=== PATIENT | male | born 1945 | race Caucasian/White ===

== ENCOUNTER 2023-04-29 01:33 | Inpatient (IN) | payer MEDICARE, BC, SELFPAY ==
[2023-04-28 20:15] VITALS: BMI 29.6
[2023-04-28 20:22] VITALS: BP 183/104
[2023-04-28 20:34] LABS: % Basophils 1.1 % (0-2); % Eosinophils 5.1 % (0-6); % Immature Granulocytes 0.2 % (0-0.5); % Lymphocytes 28.5 % (20.5-51.1); % Neutrophils 56.1 % (42.2-75.2); Absolute Basophils 0.1 10^3/uL (0-0.2); Absolute Eosinophils 0.3 10^3/uL (0-0.7); Absolute Lymphocytes 1.8 10^3/uL (1.2-3.4); Absolute Monocytes 0.6 10^3/uL (0.1-0.6); Absolute Neutrophils 3.4 10^3/uL (1.4-6.5); Hematocrit 30.6 % (39.0-52.0); Hemoglobin 10.4 g/dL (13.0-18.0); Mean Corpuscular Hgb 30.5 pg (27.0-31.0); Mean Corpuscular Volume 89.7 fL (80.0-94.0); Mean Platelet Volume 10.1 fL (7.4-10.4); Nucleated Red Blood Cells % 0 % (-); Platelet Count 184 10^3/uL (130-400); Red Blood Cell Count 3.41 10^6/uL (4.70-6.10); Red Cell Dist. Width 13.5 % (11.5-14.5); White Blood Cell Count 6.1 10^3/uL (4.8-10.8)
[2023-04-28 20:58] LABS: ALT (SGPT) 35 U/L (0-50); AST (SGOT) 38 U/L (17-59); Albumin 4.5 g/dl (3.5-5.0); Alkaline Phosphatase 82 U/L (38-126); Blood Urea Nitrogen 24 mg/dl (9-20); Calcium 9.2 mg/dl (8.4-10.2); Carbon Dioxide 23 mmol/L (22-30); Chloride 103 mmol/L (98-107); Glucose 132 mg/dl (70-99); Potassium 4.4 mmol/L (3.5-5.1); Sodium 137 mmol/L (135-145); Total Bilirubin 0.9 mg/dl (0.2-1.3); eGFR > 60.00
[2023-04-28 22:02] VITALS: BP 141/79
--- NOTE | 2023-04-28 22:21 | ED.GENMED ---
History of Present Illness
General
Chief Complaint: Heart Rate Problem
Source: patient and spouse
Time Seen by Provider: 04/28/23 22:02
Nursing documentation reviewed up to this point in time: agreed with
Travel History
Have you had any contact with someone who has COVID-19?: No
Do you have any symptoms of coronavirus? Fever > 100 degrees, chills, cough, shortness of breath, sore throat, loss of taste or smell, muscle aches, or headache?: No
History of Present Illness
History of Present Illness:
Pleasant 77-year-old male who presents with weakness. Patient has a history of paroxysmal atrial fibrillation for which she is followed at [facility]. Patient is on Xarelto 'when he goes into . He started his Xarelto on April 11 and
has been taking it continuously since. Yesterday, at his cardiology office, he was cardioverted. He felt well for a few hours but when he got home, he noted that he was in atrial fibrillation. He does wear an Apple Watch which alerts him. He
states that after speaking with his cardiology group, he is being sent a Holter monitor. Tonight patient does not 'feel himself'. He states that he has been out of breath and winded. Patient has not missed a dose of his Xarelto
Vital signs are stable. Patient not hypoxic
Nursing note reviewed. I agree with nursing documentation up to this point in time.
Home Meds and allergies reviewed.
NUMBER AND COMPLEXITY OF PROBLEMS ADDRESSED AT THE ENCOUNTER
� Chronic conditions affecting care: Atrial fibrillation, hypertension
� Acute Exacerbation and/or Progression of Chronic Illness: Atrial fibrillation
� Differential Diagnosis includes:
AMOUNT AND/OR COMPLEXITY OF DATA TO BE REVIEWED AND ANALYZED
I performed an independent evaluation of the following and my interpretation is:
EKG: Atrial fibrillation rate of 67. Left axis deviation. Right bundle branch block present. When compared with previous EKG dated July 09, 2022, current atrial fibrillation replaces sinus rhythm.
CT:
X-rays:
Ultrasound:
Laboratory Studies: Hemoglobin is 10.4 which is similar to the 10.6 on 07/11/2022. It is up from 9.7 earlier in the day.
Other:
Review of other/old records:
Clinical information was obtained by an independent historian:
Prescriptions/Medications Considered but not given:
Further testing considered but not performed:
RISK OF COMPLICATIONS AND/OR MORBIDITY OR MORTALITY OF PATIENT MANAGEMENT
Social determinants of health affecting care: Good Social Support
Discussion with other providers:
Escalation of care including admission/observation vs risk of discharge considered:
CRITICAL CARE NOTE:
Total Time (exclusive of procedures):
Update:
Past History
Past History
ED Past Medical History: Arrthythmia (atrial fibrillation)
ED Past Surgical History: Cardiac (Cardioversion) and Other (Colonoscopy)
Patient has exhibited threatening behavior?: No
Social History
Tobacco: Former smoker
Alcohol: Daily
Drug: None
Personal:
Review of Systems
Review of Systems
Allergies reviewed?: Yes
Other source history: family
All Other Systems: ROS reviewed and negative except as documented in HPI and ROS
Constitutional: Reports fatigue
EENT: Reports no symptoms
Respiratory: Reports no symptoms
Cardiac: Reports palpitations
ABD/GI: Reports no symptoms
: Reports no symptoms
Musculoskeletal: Reports no symptoms
Skin: Reports no symptoms
Neurological: Reports no symptoms
Endocrine: Reports no symptoms
Hematologic/Lymphatic: Reports no symptoms
Psychiatric: Reports no symptoms
Phy Exam
General Physical Exam
General Presentation: well appearing and no apparent distress
General Skin: warm and dry
General Habitus: normal
General Mental: alert
General Hydration: appears well hydrated
ENT Exam
ENT Exam: EOMI, pharynx normal, neck supple and normocephalic
Eye Exam
Eye Exam: PERRL, cornea clear and conjunctiva normal
Cardiovascular Exam
Cardiovascular Exam: irregularly irregular
Pulmonary Exam
Pulmonary Exam: lungs clear, no respiratory distress, no rales, no crackles, no rhonchi, no stridor, no wheezing and no cough
Gastrointestinal Exam
Gastrointestinal Exam: normal bowel sounds, non tender, soft, no organomegaly, no pulsatile mass and non distended
Neurological Exam
Neurological Exam: alert, oriented x3, no motor deficits and speech normal
Musculoskeletal Exam
Musculoskeletal Exam: full ROM and no edema
Skin Exam
Skin Exam: normal color, warm/dry, no rash and no petechia
Psychiatric Exam
Psychiatric Exam: normal mood/affect
Course
Orders/Labs/Results
Orders:
Orders
04/28/23 20:16
Electrocardiogram (*1) Urgent
Reason for Study: Palpitations
04/28/23 20:17
EKG- Treatment ONCE
04/28/23 20:28
Complete Blood Count/With Diff Urgent
Comprehensive Metabolic Panel Urgent
04/28/23 22:20
0.9% Sodium Chloride 500 ml [Nss] 500 ml IV BOLUS
04/29/23 00:53
Admit/Transfer Patient As Directed
Co-Sign Provider:
Level of Care: Inpatient admission
Assign to:: Telemetry
Physician / Group: Tyrel
Diagnosis: Heart Block, Symptomatic Bradycardia
Reason for Telemetry: Arrhythmia
Date to Stop Telemetry: 05/02/23
Time to Stop Telemetry: 11:00
Reason for Hospitalization: Heart Block, Symptomatic Bradycardia
Expected length of stay greater than two midnights?: Yes
ELOS- Estimated Length of Stay in days: 2
I certify the patient meets the requirements for IP care: Yes
04/29/23 00:54
Code Status As Directed
Resuscitation Status: Full Code
04/29/23 03:06
Acetaminophen [Tylenol] 650 mg PO Q4HPRN PRN
04/29/23 03:06
CARDIOLOGY CONSULT Routine
Consulting Provider: Gaudencio Dimas
Was physician already notified: No
Reason for consult: Bradycardia, Heart Block
Consult Notification Routine
Specialty to Notify: Cardiology
Activity As Directed
Activity Level: Bedrest
Bladder Scan As Directed
Follow Bladder Retention/Intermittent Cath Algorithm?: Yes
PRN if no void in __ hours: 6
Frequency: Per Retention Algorithm
If Bladder Scan Result >: 400
then:: Straight cath
EKG with chest pain [ECG as needed] As Directed
ECG as needed for:: Chest Pain
I/O [Intake/ Output] As Directed
Frequency: Per unit guidelines
Pneumatic Compression Sleeves As Directed
Type: Knee high
Straight Cath As Directed
Frequency: Per Retention Algorithm
Additional Instructions: straight cath as needed per acute urinary retention algorithm for 24 hrs
Additional Instructions: for bladder scan greater than 400 mL
Vital Signs As Directed
Frequency: Per unit guidelines
Oxygen Therapy [O2 Therapy] [RESP] Routine
Titrate/Wean O2 to maintain O2 sat greater than (%): 94
Ot Eval And Treat Routine
PT Consult [Pt Eval And Treat] Routine
Activity Level: Ambulate
With Assistance
DX Deep Vein Thrombosis Video Routine
04/29/23 03:48
Basic Metabolic Panel IN AM
Complete Blood Count/No Diff IN AM
Iron Routine
Magnesium IN AM
TSH Reflex To Free T4 Routine
Total Iron Binding Routine
Troponin I Q6H
04/29/23 06:00
EKG [Electrocardiogram (*1)] IN AM
Reason for Study: Chest Pain
04/29/23 08:00
Losartan [Cozaar] 100 mg PO DAILY
Pantoprazole [Protonix] 40 mg PO BID
04/29/23 09:06
Troponin I Q6H
04/29/23 15:06
Troponin I Q6H
04/30/23 Breakfast
NPO
Allow oral meds: Yes
Allow clear liquids: Sips of Clears
05/02/23 11:00
DC Protocol for Telemetry ONCE
Abnormal Lab Results
04/28/23
20:28
RBC 3.41 L 10^6/uL
(4.70-6.10)
Hgb 10.4 L g/dL
(13.0-18.0)
Hct 30.6 L %
(39.0-52.0)
BUN 24 H mg/dl
(9-20)
Glucose 132 H mg/dl
(70-99)
04/28/23 20:28
04/28/23 20:28
Vital Signs
Initial and Last Documented VS:
Initial Vital Signs
Temp Pulse Resp BP Pulse Ox
98.1 F 79 18 183/104 100
04/28/23 20:22 04/28/23 20:22 04/28/23 20:22 04/28/23 20:22 04/28/23 20:22
Last Documented Vital Signs
Temp Pulse Resp BP Pulse Ox
98.4 F 47 20 148/74 98
04/29/23 03:18 04/29/23 04:30 04/29/23 03:18 04/29/23 03:51 04/29/23 03:18
*Critical Care Note
Total Time (30-74mins, 75-104mins- exclusive of procedures): Not Applicable
Update Note
Update Note:
04/28/2023 2349 PM: Patient felt his heart rate go up into the 140s and then drop back down into the low 50s. Patient and are concerned. Patient to be brought in for further observation. Patient anticoagulated. Blood pressure is thready with
the last reading 112 systolic. Patient has absolutely no chest pain.
ED Attending Note
-
Portions of this chart may have been created with voice recognition software.� Occasional wrong word or��sound alike� substitutions may have occurred due to the inherent limitations of voice recognition software.
Discharge Plan
Departure
Patient Disposition: Admit
Date of Disposition: 04/28/23
Time of Disposition: 23:50
Admit to: Telemetry
Presentation/result/management discussed w/ accepting MD/DO: Hospitalist
Condition: Good
Discharge Problem:
Symptomatic bradycardia, PAF (paroxysmal atrial fibrillation)
Interventions
Interventions:
*Risk Screen - Suicide Last Done: 04/29/23 03:18
*General Assessment Last Done: 04/28/23 20:22
*Neglect/Abuse Screening Last Done: 04/28/23 20:22
ED- Fall Risk Assessment Last Done: 04/28/23 22:48
*ED COVID-19 Vaccine History Last Done: 04/28/23 20:22
*Nursing Disposition Last Done: 04/29/23 02:52
ED- Cardiac Assessment Last Done: 04/28/23 22:48
ED- Pulmonary Assessment Last Done: 04/28/23 22:48
Discharge Date and Time
Discharge Date/Time: 04/29/23 02:53
[2023-04-28] MEDS: NSS 500 IV (22:45)
[2023-04-28 23:00] VITALS: BP 112/60
[2023-04-29] VITALS (17 sets, daily range): BP systolic 116–197; BP diastolic 63–103; PULSE 39–83; O2SAT 97; BMI 28.6
--- NOTE | 2023-04-29 00:59 | HPS.HSE ---
Family Physician
-
Family Physician: Isrrael Rizzo
Chief Complaint
-
Fast / Slow Heart Rate
History of Present Illness
Patient is a 77y M with PMH significant for paroxysmal A-Fib who presents to ED complaining of heart rate issues. Patient states that he has had 5 total cardioversions and a prior ablation for his A-Fib. He is followed at [facility] by Dr. Resendiz
Mary Alice. Patient states that he wears an Apple Watch with heart rate alerts set up. He is very active and jogs several miles a day on average and plays golf regularly. His resting heart rate is low at baseline.
Patient got an alert on 04/11 that his heart rate was in the 30s and he was in A-Fib. He felt somewhat weak and fatigued at that time.
He followed up with Dr. Wheat and underwent a cardioversion on 04/27/23.
He felt well following this until this evening when he felt a 'shock' go through his body. His watch alarmed that his heart rate was in the 120s.
Patient noted a sense of chest heaviness and SOB and he presented to the ED for further evaluation.
At present, he is resting comfortably and feels well. His prior symptoms have fully resolved.
Patient notes that he discussed the possibility of a PPM with Dr. Wheat.
Medical History
Past Medical History
Past Medical History: Reports Other
Additional Past Medical History:
Hypertension
Paroxysmal Atrial Fibrillation
GERD / Mujica's Esophagus
Iron Deficiency Anemia
Past Surgical History: Reports Other
Additional Past Surgical History:
Herniorrhaphy
Bilateral TKA
DCCV x 5
PVI Ablation
Social History
Tobacco: Non-smoker
Alcohol: Occasional (1 drink of bourbon daily - but not when taking blood thinner.)
Drug: None
Personal:
Living: With Family
Family History
Family History: Not pertinent
Allergies / Home Medications
Allergies reflects when Allergies were last updated in [employer].
Home Medications with original date entered in [employer]
Allergy/Medication List:
Allergies
Allergy/AdvReac Type Severity Reaction Status Date / Time
No Known Allergies Allergy Verified 04/28/23 20:24
Home Medications
multivit,Ca,min-iron 8 mg-folic acid 200 mcg-lycopene 600 mcg tablet (Centrum Men) 1 ea PO DAILY Supplement 05/30/21
losartan 50 mg tablet 100 mg PO DAILY Blood pressure 10/22/21
omeprazole 20 mg-sodium bicarbonate 1.1 gram capsule (Zegerid OTC) 1 cap PO BID Gastrointestinal issue 07/09/22
rivaroxaban 20 mg tablet (Xarelto) 20 mg PO QPM Blood clot prevention/tx 30 days #30 tabs 07/11/22
Review of Systems
-
History Source: Patient
A 12 point ROS was completed and negative except as noted: Yes
Constitutional: Reports Fatigue; Denies Fever or Chills
EENT: Denies Sore Throat
Respiratory: Reports Trouble Breathing; Denies Cough
Cardiac: Denies Chest Pain, Diaphoresis, Palpitations or Syncope
Abdomen/GI: Reports Bloody Stools and Black Stools; Denies Abdominal Pain, Nausea, Vomiting or Diarrhea
: Denies Dysuria or Frequency
Musculoskeletal: Denies Edema
Neurological: Denies Dizzy or Headache
Psych: Denies Depression or Anxiety
Physical Exam
Vital Signs
Vital Signs
Temp Pulse Resp BP Pulse Ox
98.1 F 79 18 183/104 100
04/28/23 20:22 04/28/23 20:22 04/28/23 20:22 04/28/23 20:22 04/28/23 20:22
Physical Exam
General: Other (77y M in no acute distress.)
HEENT: Moist mucous membranes and PERRLA
Respiratory: Clear; No Wheezes, Rales or Rhonchi
Cardiac: S1/S2 and Irregular Rhythm; No Murmur
GI: Soft, Non Tender, Non Distended and Normal Bowel Sounds
Musculoskeletal: No Clubbing, No Cyanosis and No Edema
Neuro: AO x 3
Laboratory Results
-
04/28/23 20:28
04/28/23 20:
Laboratory Results
Total Bilirubin 0.9 mg/dl (0.2-1.3) 04/28/23 20:
AST 38 U/L (17-59) 04/28/23 20:
ALT 35 U/L (0-50) 04/28/23 20:
Alkaline Phosphatase 82 U/L (38-126) 04/28/23 20:
Impression/Plan
-
A/P: Patient is a 77y M with PMH significant for paroxysmal atrial fibrillation who presents to ED c/o heart rate issues.
Paroxysmal Atrial Fibrillation
Second Degree AV Block
- Admit for further evaluation and treatment.
- EKG and tele in the ED show a second degree heart block with variable MI interval and occasional dropped beats.
- Not in A-Fib at this time (though question brief run to 140 on the monitor here and likely responsible for the 120 bpm at home).
- Not on AV isabella blockers / chronotropic meds.
- Monitor on tele overnight.
- Cardiology eval in AM for further recommendations.
- Suspect that he would benefit from PPM.
- Hold Xarelto for now for possible PPM / procedure.
- Patient notes that he only takes the Xarelto when he is alerted that he is in A-Fib.
- He started taking it on 04/11 and his plan is to take it for 30 days s/p his DCCV.
Iron Deficiency Anemia
Acute Blood Loss Anemia
GERD / Mujica's Esophagitis
- Patient reports recent blood loss in the stool - both black and red / maroon stools.
- This apparently is the 'norm' for him when on Xarelto.
- He has had multiple GI evaluations in the past with no correctable lesions noted (a small bowel lesion was seen on a capsule study).
- Hold Xarelto acutely as noted above.
- Follow H&H.
- Consider transfusion or iron replacement therapy if needed.
- Continue BID PPI.
Benign Hypertension
- BP elevated in the ED.
- Continue losartan and adjust regimen as needed for adequate BP control.
DVT Prophylaxis: SCDs while Xarelto on hold.
Code Status: Full
[2023-04-29 04:05] LABS: Hematocrit 29.3 % (39.0-52.0); Hemoglobin 9.8 g/dL (13.0-18.0); Mean Corp Hgb Conc. 33.4 g/dL (33.0-37.0); Mean Corpuscular Hgb 30.3 pg (27.0-31.0); Mean Corpuscular Volume 90.7 fL (80.0-94.0); Mean Platelet Volume 10.2 fL (7.4-10.4); Platelet Count 185 10^3/uL (130-400); Red Blood Cell Count 3.23 10^6/uL (4.70-6.10); Red Cell Dist. Width 13.5 % (11.5-14.5); White Blood Cell Count 5.2 10^3/uL (4.8-10.8)
[2023-04-29 04:28] LABS: Blood Urea Nitrogen 21 mg/dl (9-20); Calcium 9.1 mg/dl (8.4-10.2); Carbon Dioxide 24 mmol/L (22-30); Chloride 108 mmol/L (98-107); Estimated Creatinine Clearance 50 ml/min; Glucose 103 mg/dl (70-99); Iron 40 ug/dl (49-181); Potassium 4.9 mmol/L (3.5-5.1); Sodium 141 mmol/L (135-145); eGFR > 60.00
[2023-04-29 04:37] LABS: Percent Saturation 9 % (20-50); Total Iron Binding Capacity 405 ug/dl (261-462)
[2023-04-29 04:49] LABS: Troponin I 0.063 ng/ml
[2023-04-29 04:59] LABS: TSH Reflex To Free T4 6.21 uIU/ml (0.47-4.68)
[2023-04-29 05:29] LABS: Free T4 1.21 ng/dl (0.78-2.19)
--- NOTE | 2023-04-29 07:04 | PTCARENOTE ---
Pt admitted to IVU around 0315. Pt belongings with pt. Pt oriented to IVU and room. Hr A-fib, A-flutter w/ BBB 30s-80s. Pt no c/o cp, worsening SOB, or ligtheadedness/dizziness. Informed to notify RN if any changes, call cook within reach.
[2023-04-29] MEDS: PROTONIX 40 MG PO ×2 (08:18→19:41)
[2023-04-29] MEDS: COZAAR 100 MG PO (08:18)
[2023-04-29] MEDS: FLUSH (NSS) 1 FLUSH IV (08:18)
--- NOTE | 2023-04-29 08:31 | W.PN.HOSP.TC ---
Today's Communication/Plan
-
Await cardiology input
Assessment / Plan
Assessment / Plan
Gen-AAOx3, NAD
HEENT-NC, AT, anicteric, clear oral mm
Neck-supple
CV-reg, no M, +S1/S2
Lungs-clear B/L
Abd-soft, NT, ND
Ext-no edema
Musculoskeletal-no cyanosis, clubbing
Skin-warm and dry
Neuro-grossly non-focal
Psych-calm, cooperative
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 Awaiting cardiology input. Monitor and IVU. Currently NPO. TSH 6.2, free T41.2.
Paroxysmal atrial fibrillation -currently in sinus rhythm. Had second-degree AV block. Last dose of Xarelto was yesterday. He takes it in the mornings. Explained to him that absorption may be better when taken at dinnertime.
Hyperglycemia -glucose 103 this morning. Check hemoglobin A1c, rule out DM2.
Troponin elevation -suspect nonischemic myocardial injury versus demand ischemia from rapid atrial fibrillation. Repeat troponin pending.
Essential hypertension -stable.
GERD/Mujica's esophagus
Chronic normocytic anemia -hemoglobin at or near baseline.
History of GI bleed -reportedly with negative workups in the past.
Full code
Anticipated Discharge: > 48 hours
Subjective/Interval History
-
Date of Service: April 29, 2023
Patient seen and examined. Currently denies any symptoms at rest.
Objective Data
-
Labs:
Laboratory Results
04/28/23 04/29/23
20:28 03:48
WBC 6.1 5.2
Hgb 10.4 L 9.8 L
Hct 30.6 L 29.3 L
Plt Count 184 185
Sodium 137 141
Potassium 4.4 4.9
Chloride 103 108 H
Carbon Dioxide 23 24
BUN 24 H 21 H
Creatinine 1.2 1.2
Glucose 132 H 103 H
Calcium 9.2 9.1
Total Bilirubin 0.9
AST 38
ALT 35
Alkaline Phosphatase 82
Vital Signs:
Vital Signs
Temp Pulse Resp BP Pulse Ox
97.7 F 43 18 159/82 98
04/29/23 07:53 04/29/23 08:15 04/29/23 07:53 04/29/23 07:49 04/29/23 07:53
I&O
04/28/23 04/29/23 04/30/23
06:59 06:59 06:59
Output Total
Balance -1 / -1
Review of Systems
-
History Source: Patient
All other systems: Reviewed and negative
[2023-04-29 09:52] LABS: Troponin I 0.062 ng/ml
--- NOTE | 2023-04-29 10:01 | CM ---
Reviewed chart. Met with Mr. Harrison to review discharge plans. He states prior to admission he resides with his spouse in a three story home with two steps to enter. He states he has a full flight of steps to get to bedroom/full bathroom.
He states he has a powder room on the first floor and a shower in the basement. He states prior to admission he was independent with ambulation and adls. He states he does not have any DME in the home. He states he has a prescription plan with
[employer] . Medical work-up in progress. The discharge plan is to return home with his spouse when medically stable.
--- NOTE | 2023-04-29 10:29 | CON.CAR ---
Addendum entered and electronically signed by Nils Fair MD 04/29/23 12:53:
77 yo male with PMH of paroxysmal A fib, chronic anemia with prior negative GI evaluation admitted with symptomatic bradycardia. He is s/p DCCV by his EP Dr Wheat on 03/29. Since then, he has noticed DESHPANDE and bradycardia on his watch. Exam with
irregular rhythm, II/ systolic murmur at apex, no edema. tele shows atrial flutter, with pauses up to 4 seconds, and frequent HR 30s-40s.
Echo today: EF 60-65%, mild AR, mild , mod MR, mod TR, PASP 60s
Symptomatic bradycardia. Will plan for PPM today.
To resume xarelto post PPM. If Cr Cl remains 50 or below, dose will be 15mg.
Original Note:
Consultation
Consultation Request
Date/Time Consultation Requested: 04/29/23 3a
Date/Time Consultation Performed: 04/29/23 10a
Requesting Provider: Dr. Sarah
Performing Provider: GARRY Harley for Dr. Fair
Reason for Consultation: symptomatic bradycardia
Medical History
-
Chief Complaint: rapid heart rate, sob
History of Present Illness:
Mr. Harrison is a 77 yo male (known to Dr. Nath, mellowing machine operator and Dr. Wheat, EP at [facility]) with paroxysmal Afib, HTN and GERD. He presents to the ER with c/o rapid heart rate noted on his Apple Watch while sitting at home. There was
associated SOB and fatigue that began suddenly. He states having an episode of Afib on 04/11/23 and began taking Xarelto 20mg daily, then had office follow up with Dr. Wheat who scheduled a cardioversion for 04/27/23, restoring NSR. He only takes
Xarelto when he is in Afib because Xarelto causes him to have GI bleeding, he has had prior GI work up (Dr. Smyth) that was unrevealing. QNV3OH4 VASC score is 3 (age, HTN) and he is currently on Xarelto 20mg daily with plan to continue it for 30
days s/p cardioversion 04/27/23. He is admitted to the hospitalist service and we are consulted for symptomatic bradycardia with pauses up to 4 seconds noted on tele. Currently he denies any dizziness or SOB.
Past Medical History
Past Medical History: Other (as above)
Past Surgical History: Cardiac (PVI, DCCV x 5)
Social History
Tobacco: Non-Smoker
Alcohol: Occasional
Personal:
Living: With Family
Employment: Retired
Family History
Family History: Reviewed & Not Pertinent
Allergies / Home Medications
Allergy/AdvReac Type Severity Reaction Status Date / Time
No Known Allergies Allergy Verified 04/28/23 20:24
Medication Instructions Recorded Confirmed Type
multivit,Ca,min-iron 8 mg-folic 1 ea PO DAILY Supplement 05/30/21 04/29/23 History
acid 200 mcg-lycopene 600 mcg
tablet (Centrum Men)
losartan 50 mg tablet 100 mg PO DAILY Blood pressure 10/22/21 04/29/23 History
omeprazole 20 mg-sodium 1 cap PO BID Gastrointestinal issue 07/09/22 04/29/23 History
bicarbonate 1.1 gram capsule
(Zegerid OTC)
rivaroxaban 20 mg tablet (Xarelto) 20 mg PO QPM Blood clot 07/11/22 04/29/23 Rx
prevention/tx 30 days #30 tabs
Review of Systems
-
History Source: Patient
All other systems: Negative unless noted
Physical Exam
Vital Signs
Temp Pulse Resp BP Pulse Ox
97.7 F 43 18 159/82 98
04/29/23 07:53 04/29/23 08:15 04/29/23 07:53 04/29/23 07:49 04/29/23 07:53
Lab Results
04/29/23 03:48
04/29/23 03:48
Troponin I 0.062 ng/ml H* 04/29/23 09:06
Physical Exam
General: Well Developed, Well Nourished and No Apparent Distress
HEENT: Normocephalic, Anicteric and Moist Mucous Membranes
Respiratory: Clear and Non Labored Respirations
Cardiac: S1/S2 and Regular Rhythm (SB with occasional PACs)
Breast: Deferred by me
GI: Soft, Non Tender, Non Distended and Normal Bowel Sounds
Rectal: Deferred by Provider
Musculoskeletal: No Clubbing, No Cyanosis and No Edema
Skin: Warm and Dry
Neuro: AO x 3
Psych: Calm
Impression / Plan
-
Bradycardia - symptomatic.
- up to 4 second pauses on tele.
- tachy-joaquim syndrome given elevated HR at home last night 120s.
- plan for pacemaker today, he is agreeable.
- NPO and check echo.
Afib - paroxysmal.
- SB with pauses and atrial flutter 4:1 noted as well.
- on Xarelto 20mg daily, but should be 15mg daily due to CrCl 50.
- Xarelto on hold, took it last yesterday morning.
- when resume Xarelto, will have to monitor CrCl for proper dosing.
- s/p DCCV 04/27/23 with plan to continue Xarelto for 30 days post DCCV.
- s/p PVI, follows with Dr. Wheat at [facility].
- not on AV isabella blocking meds.
- TSH 6.21, per hospitalist.
Acute non myocardial injury - due to tachy-joaquim syndrome.
- symptomatic bradycardia with pauses.
- troponin trend 0.063, 0.062.
- he denies any chest pain.
- check echo today.
HTN - stable on Losartan, continue.
GERD - stabl yolanda Zegerid at home.
History of GI bleeding - while on Xarelto he notes blood in his stool.
- prior GI work up was unrevealing (Dr. Smyth).
Data Reviewed
-
EKG: Tracing Personally Visualized and interpreted (04/28/23 SR with PACs, blocked PACs, RBBB, possible AV isabella echo beats)
Medical Tests (Nuc Med, Echo etc): Other (echo ordered for today)
Labs: Labs Reviewed by me
[2023-04-29 11:19] LABS: Glycohemoglobin (HgbA1c) 5.7 % (4.0-5.6)
--- NOTE | 2023-04-29 13:14 | PTOTSP ---
PATIENT ABLE TO MOBILIZE INDEPENDENTLY ON LEVEL SURFACES WELL ELEVATIONS WITH MINIMAL COMPLAINTS OF LE TINGLING AND SHORTNESS OF BREATH. HEART RATE NOTED TO BE 39 IN [place] AND 83 POST MOBILITY. RN AWARE. PATIENT TO HAVE PACEMAKER TODAY. O.T.
REVIEWED PACEMAKER PRECAUTIONS WITH PATIENT AND . WILL DISCHARGE FROM P.T. SERVICES.
--- NOTE | 2023-04-29 13:26 | PTCARENOTE ---
The patient has complained of tingling in his hands, feet, and at times 'all over'. He stated that he has been feeling this for over a month, prior to his CV on 04/27/23. Aflutter is noted on the monitor. His HR will go as low as the 30s at rest and
then jump up to the 80s with ambulation or activity. He has been asymptomatic except for an occasional DESHPANDE.
--- NOTE | 2023-04-29 17:37 | PTCARENOTE ---
Received the patient from the circus laborer in his bed. The patient is aaox3, vss, 94% on RA. A-V paced on the monitor. Left chest wall dressing is C/D/I. His left arm immobilizer is in place. I instructed the patient on activity restrictions and
expected oob time. His call cook is within reach.
--- NOTE | 2023-04-29 17:48 | ITS.CL.PACE ---
Counseling Specialist - Pacemaker Implant
Pacemaker Implant
Procedure Report:
Date of Procedure: April 29, 2023.
Procedure: Pacemaker Implantation.
Indication: The pacemaker is for the treatment of nonreversible symptomatic bradycardia due to second degree atrioventricular block. Known paroxysmal atrial fibrillation and atrial flutter.
Performing physician: Andre Barron MD, LOCATED WITHIN [facility].
Implants:
Pulse Generator: Medtronic; Model# [id number]; Serial# [id number].
RA Lead: Medtronic; Model# 5076-52cm; Serial# [id number].
RV Lead: Medtronic; Model# 3830-69cm; Serial# [id number].
Technique: A time out was performed. The procedure site was identified. The patient spontaneously converted to sinus during the procedure and AV block was seen when pacing at about 70 bpm. The patient was anesthetized by the anesthesia service.
Preoperative cefazolin was administered. The patient was prepped and draped in the usual fashion. Local anesthetic was applied to the left prepectoral subcutaneous tissue. A 3 inch incision was made along the left deltopectoral groove. Dissection
was carried to the fascia. The left cephalic vein was easily isolated and proximal and distal control with 2-0 Vicryl suture. Using a micropuncture needle to access the cephalic vein under direct visualization a wire was advanced into the central
circulation. A 7 Fr introducer was placed to allow two 0.35 J wires to be advanced. The leads were introduced with hemostatic peel away introducer sheaths. The RV lead was placed using utilizing the [employer] His delivery catheter ([id number]) that
was advanced to the left bundle area as confirmed by fluoroscopy in the ROMANSH and GUTIERREZ projections. The lead tip was advanced. PVC morphology was reviewed. When a satisfactory location was identified the lead was screwed into position with serial
turns. After each series of turns unipolar sensed morphology and paced impedance morphology of V1 was analyzed. The lead was further advanced until satisfactory morphology and electrical characteristics were confirmed. The second tested location
proved successful. The long guiding sheath was cut and removed from the RV without change in lead position, impedance, sensing, or capture. The ventricular lead was secured to the pectoralis muscle and fascia with two 0-silk sutures. The atrial
lead was then placed in the right atrial appendage but proved unstable so a more lateral location was chosen. 8 volt pacing did not capture the diaphragm. The atrial lead was secured to the pectoralis muscle and fascia with two 0-silk sutures. A
subcutaneous pocket was created with Bovie cautery. Hemostasis was excellent.The leads were appropriately attached to the device. The pocket was irrigated with antibiotic solution. The device and leads were placed in the pocket. The incision was
closed in three layers with absorbable suture. Steri-strips and an Aquacel dressing were placed. Estimated blood loss was 5 ml. There were no complications. Fluoroscopy time: 2.1 minutes and DAP 1.04 GyCM2. The device was then interrogated after
skin closure.
Lead Analysis:
RA lead: P: 1.1 mV; Threshold: 1 V @ 0.4 ms; Impedance:361 ohms.
RV lead: R: 13.1 mV; Threshold: 0.75 V @ 0.4 ms; Impedance: 532 ohms.
Paced QRS characteristics: V1 has QR morphology and measures 100 ms in duration, LVAT (LV activation time) stim to peak V5 is 81 ms, and peak V1 to peak V5/6 is 39 ms.
Final Programming: DDDR 60-130 bpm.
Conclusion: Uncomplicated Medtronic pacemaker implant. The pacing system is MRI conditional. The RV lead captures the LBBB to provide successful LBB area pacing/conduction system pacing.
Recommendation: Routine post pacemaker care.
cc: Alejandro Fiar MD.
[2023-04-29] MEDS: TYLENOL 650 MG PO (19:41)
[2023-04-29] MEDS: FLUSH (NSS) 2 FLUSH IV (22:41)
[2023-04-29] MEDS: ANCEF 5 IV (22:41)
--- NOTE | 2023-04-30 00:27 | PTCARENOTE ---
Late note:Took Tylenol earlier in the shift for discomfort at pacer site with relief. V-paced on the monitor. Voiding without difficulty. Sleeping at present.
[2023-04-30 05:14] VITALS: BP 153/91
[2023-04-30 05:41] LABS: Hematocrit 27.9 % (39.0-52.0); Hemoglobin 9.6 g/dL (13.0-18.0); Mean Corp Hgb Conc. 34.4 g/dL (33.0-37.0); Mean Corpuscular Hgb 30.5 pg (27.0-31.0); Mean Corpuscular Volume 88.6 fL (80.0-94.0); Mean Platelet Volume 10.1 fL (7.4-10.4); Platelet Count 171 10^3/uL (130-400); Red Blood Cell Count 3.15 10^6/uL (4.70-6.10); Red Cell Dist. Width 13.6 % (11.5-14.5); White Blood Cell Count 5.8 10^3/uL (4.8-10.8)
[2023-04-30] MEDS: ANCEF 5 IV (06:08)
[2023-04-30] MEDS: FLUSH (NSS) 2 FLUSH IV (06:08)
[2023-04-30 06:13] LABS: Blood Urea Nitrogen 23 mg/dl (9-20); Calcium 8.8 mg/dl (8.4-10.2); Carbon Dioxide 23 mmol/L (22-30); Chloride 108 mmol/L (98-107); Estimated Creatinine Clearance 60 ml/min; Glucose 96 mg/dl (70-99); Sodium 140 mmol/L (135-145); eGFR > 60.00
[2023-04-30 06:19] LABS: Potassium 4.4 mmol/L (3.5-5.1)
[2023-04-30] MEDS: TYLENOL 650 MG PO (07:03)
[2023-04-30 07:07] VITALS: BP 188/105
[2023-04-30 07:09] VITALS: BP 185/92
[2023-04-30] MEDS: PROTONIX 40 MG PO (07:41)
[2023-04-30] MEDS: COZAAR 100 MG PO (07:41)
--- NOTE | 2023-04-30 08:19 | W.PN.HOSP.TC ---
Today's Communication/Plan
-
Discharge
Assessment / Plan
Assessment / Plan
Gen-AAOx3, NAD
HEENT-NC, AT, anicteric, clear oral mm
Neck-supple
CV-reg, no M, +S1/S2, left chest dressing intact
Lungs-clear B/L
Abd-soft, NT, ND
Ext-no edema
Musculoskeletal-no cyanosis, clubbing
Skin-warm and dry
Neuro-grossly non-focal
Psych-calm, cooperative
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 Outpatient follow-up with cardiology. Pacemaker precautions. Discussed with cardiology Dr. Limon.
Paroxysmal atrial fibrillation -currently in sinus rhythm. Had second-degree AV block. Cardiology recommends changing to Eliquis 5 mg twice daily on discharge, first dose tonight.
Hyperglycemia -glucose 96 this morning. Hemoglobin A1c 5.7% just meeting the cutoff for type 2 diabetes. Recommend diet and exercise. At this point would not start on diabetes medications given his age.
Troponin elevation -suspect nonischemic myocardial injury due to rapid atrial fibrillation. Troponin trending down.
Essential hypertension -stable.
GERD/Mujica's esophagus
Chronic normocytic anemia -hemoglobin at or near baseline.
History of GI bleed -reportedly with negative workups in the past.
Full code
Dispo -medically stable for discharge today. Outpatient follow-up.
35 minutes spent in discharge process.
Anticipated Discharge: Today
Subjective/Interval History
-
Date of Service: April 30, 2023
Patient seen and examined. Eating breakfast. No complaints. Eager to go home.
Objective Data
-
Labs:
Laboratory Results
04/30/23
05:23
WBC 5.8
Hgb 9.6 L
Hct 27.9 L
Plt Count 171
Sodium 140
Potassium 4.4
Chloride 108 H
Carbon Dioxide 23
BUN 23 H
Creatinine 1.0
Glucose 96
Calcium 8.8
Vital Signs:
Vital Signs
Temp Pulse Resp BP Pulse Ox
97.8 F 65 18 153/91 97
04/30/23 07:11 04/30/23 06:00 04/30/23 07:11 04/30/23 05:14 04/30/23 07:11
I&O
04/29/23 04/30/23 05/01/23
06:59 06:59 07:59
Output Total 1 / 1 500 / 500
Balance -1 / -1 -500 / -500
Review of Systems
-
History Source: Patient
All other systems: Reviewed and negative
--- NOTE | 2023-04-30 08:26 | W.DS.TRANS ---
DC Summary - Glass Technician
-
Discharge Instructions:
Discharge Diagnosis/Procedures Pacemaker implant, type 2 diabetes mellitus
Diet Low Sodium,Diabetic, Carb Controlled
Activity As tolerated
Driving Restrictions No driving for 1 week
Bathing Restrictions OK to Shower
Instructions:
Stand-Alone Forms: DC Inst - Implanted Device
Changes to Home Medications: Yes
Discharge Medications:
DC Medications w/original date entered in [employer]
multivit,Ca,min-iron 8 mg-folic acid 200 mcg-lycopene 600 mcg tablet (Centrum Men) 1 ea PO DAILY Supplement 05/30/21
losartan 50 mg tablet 100 mg PO DAILY Blood pressure 10/22/21
omeprazole 20 mg-sodium bicarbonate 1.1 gram capsule (Zegerid OTC) 1 cap PO BID Gastrointestinal issue 07/09/22
apixaban 5 mg tablet (Eliquis) 5 mg PO BID #60 tabs 04/30/23
Home Medication Changes
Stop Xarelto
Start Eliquis
Pending Results: No
[2023-04-30 09:37] VITALS: BP 165/78
--- NOTE | 2023-04-30 10:50 | PTCARENOTE ---
Pt ambulating independently in the room. Denies any left chest incisional pain or discomfort. Left chest incision site clean and dry with aqucell dressing intact. Pt discharged to home with his . Discharge instructions given and reviewed with
good understanding.
--- NOTE | 2023-04-30 12:39 | W.PN.CD ---
Today's Communication / Plan
-
- Switch Xarelto to Eliquis 5 mg BID
- Stable for discharge.
Impression / Plan
-
Bradycardia - symptomatic.
- up to 4 second pauses on tele.
- tachy-joaquim syndrome given elevated HR at home last night 120s.
- s/p PPM on 04/29/23
Afib - paroxysmal.
- SB with pauses and atrial flutter 4:1 noted as well.
- on Xarelto 20mg daily, but should be 15mg daily due to CrCl 50.
- With h/o GI bleeding, as discussed with Dr. Barron, will switch to Eliquis 5 mg BID for discharge
- Discussed options including redoAF ablation vs watchman for his recurrent GI bleeding and interrupted anticoagulation
- s/p DCCV 04/27/23 with plan to continue Eliquis now.
- s/p PVI, follows with Dr. Wheat at [facility].
- not on AV isabella blocking meds.
- TSH 6.21, per hospitalist.
Acute non myocardial injury - due to tachy-joaquim syndrome.
- symptomatic bradycardia with pauses.
- troponin trend 0.063, 0.062.
- he denies any chest pain.
- ECHO 04/28/33 - LVEF 60-65%, moderate MR.
HTN - stable on Losartan, continue.
GERD - stable on Zegerid at home.
History of GI bleeding - while on Xarelto he notes blood in his stool.
- prior GI work up was unrevealing (Dr. Smyth).
Physical Exam
Vital Signs/Labs
Vital Signs
Temp Pulse Resp BP Pulse Ox
97.8 F 69 18 165/78 98
04/30/23 07:11 04/30/23 10:00 04/30/23 07:11 04/30/23 09:37 03/09/24 08:00
04/29/23 04/30/23 05/01/23
06:59 06:59 07:59
Actual Weight 87.8 kg
04/30/23 05:23
04/30/23 05:23
Magnesium 2.0 mg/dl (1.6-2.3) 04/30/23 05:23
Free T4 1.21 ng/dl (0.78-2.19) 04/29/23 03:48
LAB Results
04/29/23 04/29/23 04/29/23
03:48 09:06 15:06
Troponin I 0.063 H* 0.062 H* Cancelled
Physical Exam
Constitutional: No acute distress and Comfortable
EENT: Anicteric and Moist mucous membranes
Cardiovascular: Rhythm & rate is regular, Pedal edema is absent and JVD pressure is normal
Respiratory: Respiratory effort normal, Lungs clear to auscul., Wheeze Absent and Crackles Absent
GI: Soft, Distention absent, Non tender and Normal bowel sounds
Neuro/Psych: Alert, Oriented and AO x 3
Other: Cardiac Device Site (pressure dressing removed. )
Data Reviewed
-
Date of Service: April 30, 2023
Medical Decision Making: Reviewed Test Results, Independent Historian Assessment, Test Interpretation and Review of Case with other Provider
EKG: Tracing Personally Visualized and interpreted
Echo: Report Reviewed by me
X-Ray/CT/US/MRI/NUC/PET: Image Personally Visualized and interpreted
Labs: Labs Reviewed by me
Old Records: Reviewed
== END 2023-04-30 11:00 | disposition home or self-care (01) | DRG 243 ==
LOC: IVU 01:33
PROVIDERS: Internal Medicine Cardiovascular Disease; Nurse Practitioner Adult Health; Student in an Organized Health Care Education/Training Program; ADMITTING PHYSICIAN Hospitalist; ATTENDING PHYSICIAN Hospitalist; EMERGENCY PHYSICIAN Student in an Organized Health Care Education/Training Program; FAMILY PHYSICIAN Family Medicine; REFERRING PHYSICIAN Internal Medicine
PROC: 02HK3JZ Insertion of Pacemaker Lead into Right Ventricle, Percutaneous Approach (ICD-10-PCS; 2023-04-29)
PROC: 0JH606Z Insertion of Pacemaker, Dual Chamber into Chest Subcutaneous Tissue and Fascia, Open Approach (ICD-10-PCS; 2023-04-29)
PROC: 02H63JZ Insertion of Pacemaker Lead into Right Atrium, Percutaneous Approach (ICD-10-PCS; 2023-04-29)
DX: I49.5 Sick sinus syndrome (principal); I5A Non-ischemic myocardial injury (non-traumatic); K92.1 Melena; R53.1 Weakness; I48.0 Paroxysmal atrial fibrillation; I50.9 Heart failure, unspecified; I11.0 Hypertensive heart disease with heart failure; D64.9 Anemia, unspecified; K21.9 Gastro-esophageal reflux disease without esophagitis; E11.65 Type 2 diabetes mellitus with hyperglycemia; K22.70 Barrett's esophagus without dysplasia; D50.9 Iron deficiency anemia, unspecified; Z96.653 Presence of artificial knee joint, bilateral; I44.1 Atrioventricular block, second degree; Z87.891 Personal history of nicotine dependence; Z79.01 Long term (current) use of anticoagulants
CPT/HCPCS: 33208; 71045; 80048; 80053; 83036; 83540; 83550; 83735; 84439; 84443; 84484; 85025; 85027; 93005; 93306; 97162; 97166; 99285; C1769; C1785; C1892; C1898

== ENCOUNTER 2023-05-02 22:11 | Observation (INO) | payer MEDICARE, BC, SELFPAY ==
[2023-05-02] VITALS (17 sets, daily range): BP systolic 78–182; BP diastolic 37–99; BMI 28.1
[2023-05-02 16:12] LABS: % Basophils 0.8 % (0-2); % Eosinophils 2.9 % (0-6); % Immature Granulocytes 0.2 % (0-0.5); % Lymphocytes 19.4 % (20.5-51.1); % Monocytes 8.3 % (1.7-9.3); % Neutrophils 68.4 % (42.2-75.2); Absolute Basophils 0.1 10^3/uL (0-0.2); Absolute Eosinophils 0.2 10^3/uL (0-0.7); Absolute Lymphocytes 1.2 10^3/uL (1.2-3.4); Absolute Monocytes 0.5 10^3/uL (0.1-0.6); Absolute Neutrophils 4.1 10^3/uL (1.4-6.5); Hematocrit 31.1 % (39.0-52.0); Hemoglobin 10.8 g/dL (13.0-18.0); Mean Corp Hgb Conc. 34.7 g/dL (33.0-37.0); Mean Corpuscular Hgb 29.8 pg (27.0-31.0); Mean Corpuscular Volume 85.9 fL (80.0-94.0); Mean Platelet Volume 9.7 fL (7.4-10.4); Nucleated Red Blood Cells % 0 % (-); Platelet Count 201 10^3/uL (130-400); Red Blood Cell Count 3.62 10^6/uL (4.70-6.10); Red Cell Dist. Width 13.6 % (11.5-14.5); White Blood Cell Count 5.9 10^3/uL (4.8-10.8)
[2023-05-02 16:30] LABS: ALT (SGPT) 21 U/L (0-50); AST (SGOT) 31 U/L (17-59); Albumin 4.6 g/dl (3.5-5.0); Alkaline Phosphatase 82 U/L (38-126); Blood Urea Nitrogen 20 mg/dl (9-20); Calcium 9.7 mg/dl (8.4-10.2); Carbon Dioxide 25 mmol/L (22-30); Chloride 103 mmol/L (98-107); Glucose 108 mg/dl (70-99); Potassium 4.4 mmol/L (3.5-5.1); Sodium 139 mmol/L (135-145); Total Bilirubin 0.8 mg/dl (0.2-1.3); eGFR > 60.00
[2023-05-02 16:45] LABS: Troponin I 0.045 ng/ml
--- NOTE | 2023-05-02 18:39 | ED.GENMED ---
History of Present Illness
<GARRY Carmichael - Last Filed: 05/03/23 00:22>
General
Chief Complaint: Chest Pain
Exam Limitations: none
Time Seen by Provider: 05/02/23 18:39
Nursing documentation reviewed up to this point in time: agreed with
Travel History
Have you had any contact with someone who has COVID-19?: No
Do you have any symptoms of coronavirus? Fever > 100 degrees, chills, cough, shortness of breath, sore throat, loss of taste or smell, muscle aches, or headache?: No
History of Present Illness
History of Present Illness:
Patient is a 77-year-old male who has history of nonischemic myocardial injury due to rapid atrial fibrillation, type 2 diabetes, tachybradycardia syndrome paroxysmal A-fib and permanent pacemaker which was placed April 28 3 days ago. Patient at
that time was switched from Xarelto to Eliquis.
Patient reports he got up this morning around 80 and had very mild discomfort across his chest however that that has been persistent since and is got increasingly worse. He reports he did have a meal with a lot of garlic and and was not sure if this
added to s/s. Denies any recent illness fever chills cough.
He reports he went to the bathroom while he was here and just walking made his pain worse he also does feel slightly worse when he takes a deep breath.
He does feel like people someone is standing on his chest and has some pain in his teeth.
Past History
<GARRY Carmichael - Last Filed: 05/03/23 00:22>
Past History
ED Past Medical History: Arrthythmia (atrial fibrillation)
ED Past Surgical History: Cardiac (Cardioversion) and Other (Colonoscopy)
Patient has exhibited threatening behavior?: No
Social History
Tobacco: Former smoker
Alcohol: Daily
Drug: None
Personal:
Review of Systems
<GARRY Carmichael - Last Filed: 05/03/23 00:22>
Review of Systems
Allergies reviewed?: Yes
All Other Systems: ROS reviewed and negative except as documented in HPI and ROS
Constitutional: Reports no symptoms; Denies fever, fatigue or chills
EENT: Reports no symptoms
Respiratory: Reports no symptoms; Denies trouble breathing
Cardiac: Reports chest pain
ABD/GI: Reports no symptoms
: Reports no symptoms
Musculoskeletal: Reports no symptoms
Skin: Reports no symptoms
Neurological: Reports no symptoms
Psychiatric: Reports no symptoms
Phy Exam
<GARRY Carmichael - Last Filed: 05/03/23 00:22>
General Physical Exam
General Presentation: no apparent distress
General age: appears stated age
General Skin: warm and dry
General Habitus: normal
General Mental: alert
General Hydration: appears well hydrated
Cardiovascular Exam
Cardiovascular Exam: regular rate/rhythm, no murmur and normal peripheral pulses
Pulmonary Exam
Pulmonary Exam: lungs clear and no respiratory distress
Neurological Exam
Neurological Exam: alert
Yari Coma Scale
Eye Opening: Spontaneous
Verbal Response: Oriented
Motor Response: Obeys Commands
GCS Total Score: 15
Musculoskeletal Exam
Musculoskeletal Exam: full ROM
Skin Exam
Skin Exam: normal color and warm/dry
Psychiatric Exam
Psychiatric Exam: normal mood/affect
Scores
<GARRY Carmichael - Last Filed: 05/03/23 00:22>
Heart Score for Chest Pain Patients
STEMI patient?: Not applicable
Course
<GARRY Carmichael - Last Filed: 05/03/23 00:22>
Orders/Labs/Results
Orders:
Orders
05/02/23 Dinner
Regular
At Your Request: Full Participation
05/02/23 15:42
EKG [Electrocardiogram (*1)] Urgent
Reason for Study: Chest Pain
EKG- Treatment ONCE
05/02/23 15:57
C-Reactive Protein Urgent
Comment: ADD ON
Complete Blood Count/With Diff Urgent
Comprehensive Metabolic Panel Urgent
Troponin I Urgent
05/02/23 17:46
EKG [Electrocardiogram (*1)] Urgent
Reason for Study: Chest Pain
EKG- Treatment ONCE
05/02/23 18:53
Chest [CR Chest - 2 Views ] Urgent
Comment:
Reason For Exam: cp
05/02/23 18:57
Troponin I Urgent
05/02/23 20:01
Acetaminophen [Tylenol] 1,000 mg PO NOW STA
05/02/23 20:43
Electrocardiogram (*1) Urgent
Reason for Study: Syncope
EKG- Treatment ONCE
05/02/23 20:52
0.9% Sodium Chloride 500 ml [Nss] 1,000 ml IV BOLUS
05/02/23 21:13
Mag Hydrox/Al Hydrox/Simeth [Maalox] 30 ml Phenobarb/Hyoscy/Atropine/Scop [] 10 ml PO NOW
05/02/23 21:20
Mag Hydrox/Al Hydrox/Simeth [Maalox] 30 ml .ROUTE .STK-MED ONE
Phenobarb/Hyoscy/Atropine/Scop [] 10 ml .ROUTE .STK-MED ONE
05/02/23 21:25
Add On- LAB Urgent
Tests Added?: crp
05/02/23 21:58
Admit/Transfer Patient As Directed
Co-Sign Provider:
Level of Care: Observation services
Assign to:: Telemetry
Physician / Group: veldanda
Diagnosis: gerd vs acs
Reason for Telemetry: Arrhythmia
Date to Stop Telemetry: 05/05/23
Time to Stop Telemetry: 11:00
Code Status As Directed
Resuscitation Status: Full Code
05/02/23 22:30
CARDIOLOGY CONSULT Routine
Consulting Provider: Gaudencio Dimas
Was physician already notified: Yes
VTE Contraindication Routine
VTE Mechanical Device Contraindication: Medical Contraindication
Pharmocologic Contraindication: Medical Contraindication
Activity As Directed
Activity Level: As Tolerated
Vital Signs As Directed
Frequency: Per unit guidelines
05/02/23 22:36
Troponin I Q6H
05/03/23 02:00
Acetaminophen [Tylenol] 1,000 mg PO BIDPRN PRN
05/03/23 04:30
Troponin I Q6H
05/03/23 06:00
Complete Blood Count/With Diff IN AM
Comprehensive Metabolic Panel IN AM
05/03/23 08:00
Apixaban [Eliquis] 5 mg PO BID
Losartan [Cozaar] 100 mg PO DAILY
Multivitamin [Theragran] 1 tablet PO DAILY
Pantoprazole [Protonix] 40 mg PO BID
05/03/23 10:30
Troponin I Q6H
05/05/23 11:00
DC Protocol for Telemetry ONCE
Abnormal Lab Results
05/02/23 05/02/23
15:57 18:57
RBC 3.62 L 10^6/uL
(4.70-6.10)
Hgb 10.8 L g/dL
(13.0-18.0)
Hct 31.1 L %
(39.0-52.0)
Lymphocytes % 19.4 L %
(20.5-51.1)
Glucose 108 H mg/dl
(70-99)
Troponin I 0.045 H* ng/ml 0.041 H* ng/ml
C-Reactive Protein 16.40 H mg/L
(0.0-10.00)
05/02/23 15:57
05/02/23 15:57
Vital Signs
Initial and Last Documented VS:
Initial Vital Signs
Temp Pulse Resp BP Pulse Ox
98.4 F 63 18 178/98 100
05/02/23 15:48 05/02/23 15:48 05/02/23 15:48 05/02/23 15:48 05/02/23 15:48
Last Documented Vital Signs
Temp Pulse Resp BP Pulse Ox
98.4 F 77 21 128/88 94
05/02/23 15:48 05/02/23 23:45 05/02/23 23:45 05/02/23 23:45 05/02/23 23:45
<Josemanuel Jones, DO - Last Filed: 05/02/23 20:52>
Orders/Labs/Results
Orders:
Orders
05/02/23 Dinner
Regular
At Your Request: Full Participation
05/02/23 15:42
EKG [Electrocardiogram (*1)] Urgent
Reason for Study: Chest Pain
EKG- Treatment ONCE
05/02/23 15:57
C-Reactive Protein Urgent
Comment: ADD ON
Complete Blood Count/With Diff Urgent
Comprehensive Metabolic Panel Urgent
Troponin I Urgent
05/02/23 17:46
EKG [Electrocardiogram (*1)] Urgent
Reason for Study: Chest Pain
EKG- Treatment ONCE
05/02/23 18:53
Chest [CR Chest - 2 Views ] Urgent
Comment:
Reason For Exam: cp
05/02/23 18:57
Troponin I Urgent
05/02/23 20:01
Acetaminophen [Tylenol] 1,000 mg PO NOW STA
05/02/23 20:43
Electrocardiogram (*1) Urgent
Reason for Study: Syncope
EKG- Treatment ONCE
05/02/23 20:52
0.9% Sodium Chloride 500 ml [Nss] 1,000 ml IV BOLUS
05/02/23 21:13
Mag Hydrox/Al Hydrox/Simeth [Maalox] 30 ml Phenobarb/Hyoscy/Atropine/Scop [] 10 ml PO NOW
05/02/23 21:20
Mag Hydrox/Al Hydrox/Simeth [Maalox] 30 ml .ROUTE .STK-MED ONE
Phenobarb/Hyoscy/Atropine/Scop [] 10 ml .ROUTE .STK-MED ONE
05/02/23 21:25
Add On- LAB Urgent
Tests Added?: crp
05/02/23 21:58
Admit/Transfer Patient As Directed
Co-Sign Provider:
Level of Care: Observation services
Assign to:: Telemetry
Physician / Group: regine
Diagnosis: gerd vs acs
Reason for Telemetry: Arrhythmia
Date to Stop Telemetry: 05/05/23
Time to Stop Telemetry: 11:00
Code Status As Directed
Resuscitation Status: Full Code
05/02/23 22:30
CARDIOLOGY CONSULT Routine
Consulting Provider: Gaudencio Dimas
Was physician already notified: Yes
VTE Contraindication Routine
VTE Mechanical Device Contraindication: Medical Contraindication
Pharmocologic Contraindication: Medical Contraindication
Activity As Directed
Activity Level: As Tolerated
Vital Signs As Directed
Frequency: Per unit guidelines
05/02/23 22:36
Troponin I Q6H
05/03/23 02:00
Acetaminophen [Tylenol] 1,000 mg PO BIDPRN PRN
05/03/23 04:30
Troponin I Q6H
05/03/23 06:00
Complete Blood Count/With Diff IN AM
Comprehensive Metabolic Panel IN AM
05/03/23 08:00
Apixaban [Eliquis] 5 mg PO BID
Losartan [Cozaar] 100 mg PO DAILY
Multivitamin [Theragran] 1 tablet PO DAILY
Pantoprazole [Protonix] 40 mg PO BID
05/03/23 10:30
Troponin I Q6H
05/05/23 11:00
DC Protocol for Telemetry ONCE
Abnormal Lab Results
05/02/23 05/02/23
15:57 18:57
RBC 3.62 L 10^6/uL
(4.70-6.10)
Hgb 10.8 L g/dL
(13.0-18.0)
Hct 31.1 L %
(39.0-52.0)
Lymphocytes % 19.4 L %
(20.5-51.1)
Glucose 108 H mg/dl
(70-99)
Troponin I 0.045 H* ng/ml 0.041 H* ng/ml
C-Reactive Protein 16.40 H mg/L
(0.0-10.00)
05/02/23 15:57
05/02/23 15:57
Vital Signs
Initial and Last Documented VS:
Initial Vital Signs
Temp Pulse Resp BP Pulse Ox
98.4 F 63 18 178/98 100
05/02/23 15:48 05/02/23 15:48 05/02/23 15:48 05/02/23 15:48 05/02/23 15:48
Last Documented Vital Signs
Temp Pulse Resp BP Pulse Ox
98.4 F 77 21 128/88 94
05/02/23 15:48 05/02/23 23:45 05/02/23 23:45 05/02/23 23:45 05/02/23 23:45
<GARRY Carmichael - Last Filed: 05/03/23 00:22>
MDM/Problems Addressed
Differential Diagnosis Includes:
not limited to:pericarditis, ACS. muscle pain , Reflux
MDM/Problems Addressed:
Patient is a 77-year-old male status post pacemaker insertion 3 days ago presented with chest pain that started today. He reports he started mild but persisted throughout the day. He does admit to eating foods with garlic and at this morning did
feel the pain radiate up to his jaw/teeth. He had no associated shortness of breath fever chills
2049: Called to patient's room. Patient felt very lightheaded became very pale urinated on himself. On exam patient is awake alert he is pale however conversing. ED physician at bedside as well. Patient's blood pressure found to be in the 80s.
He is nontachycardic blood sugar checked and normal. Patient was given fluids. Feeling much better.
2109: Spoke with cardiology Dr. Dimas. Will first try GI cocktail and then try morphine. Will require admission for the hospitalist service.
2117: Pacemaker interrogated shows dual chamber PM Medtronic no arrhythmia . non conducted PACs + paced in ventricle
2322: Called by nurse that patient had a second episode where he became pale diaphoretic and dropped his pressure. Patient was given fluids. Hospitalist aware as well as ED physician will check CT possible effusion/fluid around heart
19: Patient was evaluated cardiology Dr. Isaac I did a bedside echo no obvious tamponade symptoms are worse with laying down she will treat for pericarditis and hold anticoagulation start colchicine.
<GARRY Carmichael - Last Filed: 05/03/23 00:22>
*Radiology
Radiology exam reviewed: radiology read reviewed
*Pulse Oximetry
Patient hypoxic: no
*EKG
Interpreted by ED Provider?: Yes
Heart Rate: 73
Rate: normal
Rhythm: ventricular paced
QRS Pattern: normal QRS
Ischemia: no ischemia
*Critical Care Note
Total Time (30-74mins, 75-104mins- exclusive of procedures): Not Applicable
Data Reviewed
Review of Other/Old Records Reveals: Labs and Discharge Summary
Source: patient, spouse and family
<GARRY Carmichael - Last Filed: 05/03/23 00:22>
Patient Management
Discussion with other providers: Physician Relations Specialist (Dr Dimas, cardiology )
ED Attending Note
<GARRY Carmichael - Last Filed: 05/03/23 00:22>
-
Portions of this chart may have been created with voice recognition software.� Occasional wrong word or��sound alike� substitutions may have occurred due to the inherent limitations of voice recognition software.
<Josemanuel Jones DO - Last Filed: 05/02/23 20:52>
ED Attending Note
Patient seen and examined by attending physician: Yes
I performed the substantive portion of visit, reviewed & personally made and approve the management plan that is documented in note by myself or DRE.: Yes
ED Attending Note:
Seen with SAWMILLING OPERATOR examined independently called emergently patient with a near syncopal event, on the monitor technician pain into his teeth, status post pacemaker for tachybradycardia syndrome no history of CAD have reflux symptoms he had some garlic food
earlier today blood pressure is little soft, he did not eat today, EKG repeat noted labs are noted at this point I think is prudent to bring him in the hospital not sure if this represents ACS reflux pericarditis pericardial effusion etc.
Discharge Plan
Departure
Patient Disposition: Admit
Date of Disposition: 05/02/23
Time of Disposition: 21:24
Admit to: Telemetry
Admit to doctor: hospitalist
Presentation/result/management discussed w/ accepting MD/DO: Hospitalist
Condition: Fair
Covid-19: Not Applicable
Discharge Problem:
Chest pain
Interventions
Interventions:
*Risk Screen - Suicide Last Done: 05/02/23 15:48
*General Assessment Last Done: 05/02/23 15:48
*Neglect/Abuse Screening Last Done: 05/02/23 15:48
*ED COVID-19 Vaccine History Last Done: 05/02/23 15:48
ED- Cardiac Assessment Last Done: 05/02/23 18:35
[2023-05-02 19:32] LABS: Troponin I 0.041 ng/ml
[2023-05-02] MEDS: TYLENOL 1000 MG PO (20:11)
[2023-05-02 20:51] LABS: Glucose - Point of Care 99 mg/dl (70-99)
[2023-05-02] MEDS: NSS 1000 IV ×2 (20:52→23:22)
[2023-05-02] MEDS: MAALOX 40 PO (21:22)
--- NOTE | 2023-05-02 22:01 | HPS.HSE ---
Addendum entered and electronically signed by Juan F Mcclure MD 05/02/23 23:35:
Cardiology recommended holding off on CT chest at this time. Cardiology to evaluate and arrange for stat echo to rule out lead perforation resulting in pericardial effusion.
Addendum entered and electronically signed by Juan F Mcclure MD 05/02/23 23:16:
Patient had another presyncopal episode with worsening chest pain, nausea, dizziness and decreased blood pressure. This occurred while he was sitting down. IV fluid bolus to be given. Cardiology to be notifed.
Patient to be upgraded to IVU.
Original Note:
Family Physician
-
Family Physician: Isrrael Rizzo
Chief Complaint
-
chest pain
History of Present Illness
77-year-old male past medical history of atrial fibrillation, tachybradycardia syndrome status post permanent pacemaker 3 days ago, HTN, GERD, GI bleeding, anemia, presenting with chest pain. He got up this morning and had mild discomfort across
his chest described as ache that has been persistent and getting increasingly worse throughout the day. Pain did radiate to his right arm during the course of the day. Pain was worse with ambulation and slightly worse when he takes a deep breath.
He also had pain in his teeth after having a meal which sometimes happens when he gets indigestion.. He denies any fevers, chills, cough or shortness of breath.
While in the emergency room patient had an episode where his blood pressure dropped and he became nauseous and felt like he almost passed out. This was associated with urine incontinence.
Medical History
Past Medical History
Past Medical History: Reports Other (atrial fibrillation, tachybradycardia syndrome status post permanent pacemaker 3 days ago, HTN, GERD, GI bleeding, anemia,)
Past Surgical History: Reports Other (pacemaker )
Social History
Tobacco: Non-smoker
Alcohol: Daily (1 drink [place] daily )
Drug: None
Family History
Family History: Not pertinent
Allergies / Home Medications
Allergies reflects when Allergies were last updated in [employer].
Home Medications with original date entered in [employer]
Allergy/Medication List:
Allergies
Allergy/AdvReac Type Severity Reaction Status Date / Time
No Known Allergies Allergy Verified 05/02/23 15:50
Home Medications
omeprazole 20 mg-sodium bicarbonate 1.1 gram capsule (Zegerid OTC) 1 cap PO BID Gastrointestinal issue 07/09/22
apixaban 5 mg tablet (Eliquis) 5 mg PO BID #60 tabs 04/30/23
acetaminophen 500 mg tablet (Tylenol Extra Strength) 1,000 mg PO BIDPRN PRN mild pain 05/02/23
losartan 100 mg tablet 100 mg PO DAILY 05/02/23
dugthovx-ik-ngggb 300 mcg-K 60 mcg-lycop 600 mcg-lutein 300 mcg tablet (Centrum Silver Men) 1 tab PO DAILY 05/02/23
Review of Systems
-
History Source: Patient
A 12 point ROS was completed and negative except as noted: Yes
Constitutional: Reports No Symptoms
EENT: Reports No Symptoms
Respiratory: Reports No Symptoms
Cardiac: Reports No Symptoms
Abdomen/GI: Reports No Symptoms
: Reports No Symptoms
Musculoskeletal: Reports No Symptoms
Skin: Reports No Symptoms
Neurological: Reports No Symptoms
Endocrine: Reports No Symptoms
Hematologic/Lymphatic: Reports No Symptoms
Psych: Reports No Symptoms
Physical Exam
Vital Signs
Vital Signs
Temp Pulse Resp BP Pulse Ox
98.4 F 71 20 129/88 98
05/02/23 15:48 05/02/23 21:45 05/02/23 21:45 05/02/23 21:30 05/02/23 21:30
Physical Exam
General: Well Developed, Well Nourished and No Apparent Distress
HEENT: NormoCephalic, Moist mucous membranes and Atraumatic
Respiratory: Clear
Cardiac: S1/S2 and Regular Rhythm; No Murmur or Rub
GI: Soft, Non Tender, Non Distended and Normal Bowel Sounds; No Organomegaly
Rectal: Deferred by Provider
Musculoskeletal: No Clubbing, No Cyanosis and No Edema
Skin: No Rash
Neuro: Nonfocal/grossly intact
Laboratory Results
-
05/02/23 15:57
05/02/23 15:57
Laboratory Results
Total Bilirubin 0.8 mg/dl (0.2-1.3) 05/02/23 15:57
AST 31 U/L (17-59) 05/02/23 15:57
ALT 21 U/L (0-50) 05/02/23 15:57
Alkaline Phosphatase 82 U/L (38-126) 05/02/23 15:57
Troponin I 0.041 ng/ml H* 05/02/23 18:57
Data Reviewed
-
Lab Data: Labs Reviewed by me
Old Records: Reviewed
Impression/Plan
-
IMPRESSION:
PLAN:
# Chest pain possibly GERD/ versus ACS
-Patient given Maalox with some improvement
-Continue PPI
-EKG shows ventricularly paced rhythm
-Chest x-ray shows trace bilateral pleural effusion
-cardiology consulted
# Non ischemic myocardial injury
-Troponin of 0.045 which is less than 0.062 during the last admission for tachybradycardia syndrome
-Trend troponins, already trending down
# Vagal episode in emergency room
-IV fluids given in ER
-Interrogation of pacemaker no notable events
Paroxysmal atrial fibrillation
Tachybradycardia syndrome status post permanent pacemaker
-Continue Eliquis
Prediabetes
Essential hypertension
-Continue losartan
GERD/Mujica's esophagus
Chronic normocytic anemia
-Hemoglobin stable
History of GI bleeding
Full code
DVT prophylaxis�Eliquis
Regular diet
[2023-05-02 23:09] LABS: Troponin I 0.043 ng/ml
--- NOTE | 2023-05-02 23:49 | CON.CAR ---
Consultation
Consultation Request
Date/Time Consultation Requested: 05/02/23
Date/Time Consultation Performed: 05/02/23
Requesting Provider: Dr Mcclure
Performing Provider: Dr Dimas (Primary Dr Fair)
Reason for Consultation: Chest pain
Medical History
-
Chief Complaint: cp
History of Present Illness:
77-year-old gentleman with a past medical history of paroxysmal atrial fibrillation, chronic anemia, hypertension, GERD and recent admission for recurrent atrial fibrillation and tachy-joaquim syndrome with symptomatic bradycardia and 2degree av block
on 04/29/2023 resulting in permanent pacemaker placement by Dr. Barron presented for evaluation for chest pain. He has been feeling very well at home except for this morning he woke up feeling what he calls Boyd, with a pain across his chest and at
times up into his teeth. He has only ever had this in the past due to reflux. He was able to eat breakfast consisting of 2 potato pancakes which she thinks made him feel worse. He then went shopping and pain continued so he sought care.
While in the ED, evaluation included troponin x 2 at 0.04 of note last week during that admission in bradycardia troponin was 0.06, ECG and CXR were unrevealing. Pacemaker interrogation was stable. Earlier in the evening while he had an episode of
diaphoresis, nausea and hypotension. This quickly resolved and he seemed to recover. He was given a GI cocktail with improvement. However had repeat episode of feeling poorly,diaphoresis, nausea and with incontinence. While I am examining him he
reports pain in worsened with inspiration and with laying flat.
Past Medical History
Past Medical History: Arrhythmias (paf, tachy-joaquim syndrome), GERD and HTN
Social History
Tobacco: Non-Smoker
Alcohol: Occasional
Personal:
Living: With Family
Employment: Retired
Family History
Family History: Reviewed & Not Pertinent
Allergies / Home Medications
Allergy/AdvReac Type Severity Reaction Status Date / Time
No Known Allergies Allergy Verified 05/02/23 15:50
Medication Instructions Recorded Confirmed Type
omeprazole 20 mg-sodium 1 cap PO BID Gastrointestinal issue 07/09/22 05/02/23 History
bicarbonate 1.1 gram capsule
(Zegerid OTC)
apixaban 5 mg tablet (Eliquis) 5 mg PO BID #60 tabs 04/30/23 05/02/23 Rx
acetaminophen 500 mg tablet 1,000 mg PO BIDPRN PRN mild pain 05/02/23 05/02/23 History
(Tylenol Extra Strength)
losartan 100 mg tablet 100 mg PO DAILY 05/02/23 05/02/23 History
dvyvfvsl-at-kkaip 300 mcg-K 60 1 tab PO DAILY 05/02/23 05/02/23 History
mcg-lycop 600 mcg-lutein 300 mcg
tablet (Centrum Silver Men)
Review of Systems
-
All other systems: Negative unless noted
Physical Exam
Vital Signs
Temp Pulse Resp BP Pulse Ox
98.4 F 66 23 124/76 94
05/02/23 15:48 05/02/23 23:30 05/02/23 23:30 05/02/23 23:30 05/02/23 23:30
Lab Results
05/02/23 15:57
05/02/23 15:57
Troponin I 0.043 ng/ml H* 05/02/23 22:36
Physical Exam
General: Well Developed, Well Nourished and No Apparent Distress
HEENT: Normocephalic
Respiratory: Clear, Wheezes (none), Crackles (none), Rhonchi (none) and Non Labored Respirations (none)
Cardiac: S1/S2, Regular Rhythm, Murmur (2/6 systolic murmuar), Rub (none) and Peripheral Edema (none)
GI: Non Tender and Normal Bowel Sounds
Musculoskeletal: No Clubbing, No Cyanosis and No Edema
Neuro: AO x 3
Impression / Plan
-
Chest pain:
-ecg unrevealing, trop down from last week
-differential dx: Pericarditis/pericardial effusion---I called in the operating room surgical technician to do a stat echo. It preliminarily shows normal lvef, small pericardial effusion and no e/o tamponade.
GERD -did have improvement with GI cocktail but given recent pacer and pleuritic/positional component will treat as pericarditis.
-ACS seems least likely.
-will start colchicine and motrin
-hold DOAC for now given small effusion, will reconsider if continues to improve
-will follow up official tte
acute hypotension:
-given association with pain, n/diaphoresis, episodic nature and loss of urine---seems c/w vasovagal.
-Cautiously continue fluids.
tachy-joaquim syndrome
- s/p PPM on 04/29/23
-rule out effusion
Afib - paroxysmal.
- in Sinus
- Taking Eliquis 5 mg BID will hold for now givennew small effusion, will reconsider if continues to improve
- Discussed options including redoAF ablation vs watchman for his recurrent GI bleeding and interrupted anticoagulation
- s/p DCCV 04/27/23 with plan to continue Eliquis now.
- s/p PVI, follows with Dr. Wheat at [facility].
HTN - stable on Losartan, continue.
GERD - chronic on Zegerid at home.
MOderate MR/MILD /MILD AR
History of GI bleeding - while on Xarelto he notes blood in his stool.
-monitor hgb with NSAID
- prior GI work up was unrevealing (Dr. Smyth).
Data:
PPM insertion 04/29/23 Lead Analysis:
RA lead: P: 1.1 mV; Threshold: 1 V @ 0.4 ms; Impedance:361 ohms.
RV lead: R: 13.1 mV; Threshold: 0.75 V @ 0.4 ms; Impedance: 532 ohms.
Paced QRS characteristics: V1 has QR morphology and measures 100 ms in duration, LVAT (LV activation time) stim to peak V5 is 81 ms, and peak V1 to peak V5/6 is 39 ms.
Final Programming: DDDR 60-130 bpm.
�
Conclusion: Uncomplicated Medtronic pacemaker implant. The pacing system is MRI conditional. The RV lead captures the LBBB to provide successful LBB area pacing/conduction system pacing.
TTE �CONCLUSIONS
�Normal biventricular size and systolic function without regional wall motion
�abnormality. Estimated LVEF 60-65%.
�Moderate mitral regurgitation.
�Mild aortic stenosis. Mild aortic regurgitation.
�Moderate tricuspid regurgitation. Severely elevated PASP. Estimated pulmonary
�artery pressure of 60-65 mmHg. Assuming a right atrial pressure of 3 mmHg.
�
�No prior study available for comparison.
Data Reviewed
-
EKG: Tracing Personally Visualized and interpreted (Sinus rhythm with intermittent atrial pacing but Ventricular sensing and pacing. )
Radiology: Image Personally Visualized and interpreted (mpacer in place, small effusion(pleusal) Cardiomegaly?)
Critical Care Time (in minutes): 65 minutes
[2023-05-03] VITALS (13 sets, daily range): BP systolic 99–149; BP diastolic 60–102; BMI 28.1
[2023-05-03] MEDS: COLCHICINE 0.599999999999999978 MG PO ×3 (01:35→21:09)
[2023-05-03] MEDS: MOTRIN 600 MG PO ×4 (01:36→21:07)
--- NOTE | 2023-05-03 04:19 | PTCARENOTE ---
Pt admitted to IVU at approximately 0240. CP at 3 out of 10, down from 6 out of 10 in ED. This is an acceptable level for the pt. Pt educated on Colchicine. Pt oriented to IVU, pt belongings with pt. HR v-paced 60s-90s. Pt denies any SOB, worsening
CP, or lightheadedness/dizziness at this time. Informed to notify RN if any changes, call cook within reach.
[2023-05-03 04:49] LABS: % Basophils 0.3 % (0-2); % Eosinophils 0.1 % (0-6); % Immature Granulocytes 0.4 % (0-0.5); % Lymphocytes 6.6 % (20.5-51.1); % Monocytes 10.1 % (1.7-9.3); % Neutrophils 82.5 % (42.2-75.2); Absolute Lymphocytes 0.5 10^3/uL (1.2-3.4); Absolute Monocytes 0.8 10^3/uL (0.1-0.6); Absolute Neutrophils 6.2 10^3/uL (1.4-6.5); Hematocrit 25.6 % (39.0-52.0); Hemoglobin 8.8 g/dL (13.0-18.0); Mean Corp Hgb Conc. 34.4 g/dL (33.0-37.0); Mean Corpuscular Hgb 30.3 pg (27.0-31.0); Mean Corpuscular Volume 88.3 fL (80.0-94.0); Mean Platelet Volume 10.1 fL (7.4-10.4); Nucleated Red Blood Cells % 0 % (-); Platelet Count 171 10^3/uL (130-400); Red Cell Dist. Width 13.7 % (11.5-14.5); White Blood Cell Count 7.5 10^3/uL (4.8-10.8)
[2023-05-03 05:10] LABS: ALT (SGPT) 18 U/L (0-50); AST (SGOT) 25 U/L (17-59); Albumin 3.6 g/dl (3.5-5.0); Alkaline Phosphatase 76 U/L (38-126); Blood Urea Nitrogen 21 mg/dl (9-20); Calcium 8.8 mg/dl (8.4-10.2); Carbon Dioxide 23 mmol/L (22-30); Chloride 106 mmol/L (98-107); Estimated Creatinine Clearance 60 ml/min; Glucose 108 mg/dl (70-99); Potassium 4.3 mmol/L (3.5-5.1); Sodium 138 mmol/L (135-145); eGFR > 60.00
[2023-05-03 05:11] LABS: Troponin I 0.035 ng/ml
--- NOTE | 2023-05-03 08:12 | W.PN.CD ---
Today's Communication / Plan
-
continue colchicine
continue motrin
echo in am
eliquis on hold
Impression / Plan
-
Pericarditis/pericardial effusion--
-pain improved from 07/31 to 04/30
-TTE focused study 05/02/23 normal lvef, small to moderate pericardial effusion and no e/o hemodynamic significance.
-continue colchicine and motrin
-repeat focused echo in am if stable would be ok to discharge.
-hold DOAC for now given small to moderate effusion, would recommend a brief hold, repeat echo next week to establish resumption of eliquis.
Acute hypotension:
-given association with pain, n/diaphoresis, episodic nature and loss of urine---seems c/w vasovagal.
-Improved with fluids
-continue to monitor
-we discussed recurrence and what to do for recurrent symptoms.
tachy-joaquim syndrome
- s/p PPM on 04/29/23
-rule out effusion
Afib - paroxysmal.
- in Sinus
- Taking Eliquis 5 mg BID will hold for now givennew small effusion, will reconsider if continues to improve
- On last admission, Dr Limon discussed options including redo AF ablation vs watchman for his recurrent GI bleeding and interrupted anticoagulation---will be an outpatient issue to follow up on
- s/p DCCV 04/27/23
- s/p PVI, follows with Dr. Wheat at [facility], planning on transitioning to Dr Fair for CBC.
HTN - typically on Losartan, resume when needed.
GERD - chronic on Zegerid at home.
Moderate MR/MILD /MILD AR
History of GI bleeding - while on Xarelto he notes blood in his stool, transitioned to Eliquis, no on hold. .
-monitor hgb with NSAID
- prior GI work up was unrevealing (Dr. Smyth).
Subjective:
he is feeling so much better. He still has plueritic cp but 1/2 the pain of [presentation
Data:
PPM insertion 04/29/23 Lead Analysis:
RA lead: P: 1.1 mV; Threshold: 1 V @ 0.4 ms; Impedance:361 ohms.
RV lead: R: 13.1 mV; Threshold: 0.75 V @ 0.4 ms; Impedance: 532 ohms.
Paced QRS characteristics: V1 has QR morphology and measures 100 ms in duration, LVAT (LV activation time) stim to peak V5 is 81 ms, and peak V1 to peak V5/6 is 39 ms.
Final Programming: DDDR 60-130 bpm.
Conclusion: Uncomplicated Medtronic pacemaker implant. The pacing system is MRI conditional. The RV lead captures the LBBB to provide successful LBB area pacing/conduction system pacing.
TTE 05/03/23:
Normal biventricular size and systolic function without regional wall motion
�abnormality.
Small to moderate concentric� pericardial effusion (largest pocket 1.3
�posterior to inferior LV) without evidence of hemodynamic compromise.
Compared to the prior on 04/29/2023, there is now a small to moderate pericardial
�effusion.
�
TTE �04/29/23 CONCLUSIONS
�Normal biventricular size and systolic function without regional wall motion
�abnormality. Estimated LVEF 60-65%.
�Moderate mitral regurgitation.
�Mild aortic stenosis. Mild aortic regurgitation.
�Moderate tricuspid regurgitation. Severely elevated PASP. Estimated pulmonary
�artery pressure of 60-65 mmHg. Assuming a right atrial pressure of 3 mmHg.
�
�No prior study available for comparison.
Physical Exam
Vital Signs/Labs
Vital Signs
Temp Pulse Resp BP Pulse Ox
98 F 82 16 115/60 98
05/03/23 07:58 05/03/23 07:58 05/03/23 07:58 05/03/23 04:06 05/03/23 07:58
05/02/23 05/03/23 05/04/23
06:59 06:59 06:59
Actual Weight 86.319 kg
05/03/23 04:15
05/03/23 04:15
LAB Results
05/02/23 05/02/23 05/02/23
15:57 18:57 22:36
Troponin I 0.045 H* 0.041 H* 0.043 H*
05/03/23
04:15
Troponin I 0.035 H*
Physical Exam
Constitutional: No acute distress
Cardiovascular: Rhythm & rate is regular, Pedal edema is absent, JVD pressure is normal, Systolic murmur absent and Diastolic murmur absent
Respiratory: Respiratory effort normal, Lungs clear to auscul., Wheeze Absent, Crackles Absent and Rhonchi Absent
Neuro/Psych: AO x 3
Data Reviewed
-
Date of Service: May 03, 2023
EKG: Other (tele sinus with pacing few pvcs)
Medical Tests (PFT, Pathology etc): Discussed with Physician (Dr Graff, monitor overnight, repeat echo in the am)
[2023-05-03] MEDS: PROTONIX 40 MG PO ×2 (09:50→21:07)
[2023-05-03] MEDS: COZAAR 100 MG PO (09:50)
[2023-05-03] MEDS: THERAGRAN 1 TABLET PO (09:50)
--- NOTE | 2023-05-03 10:25 | CM ---
Reviewed chart. Met with Mr. Harrison to review discharge plans. He states prior to admission he resides with his spouse in a three story home with two steps to enter. He states he has a a full flight of steps to get to bedroom/full bathroom. He
states he has a powder room on the first floor and a full bathroom in the basement. He states prior to admission he was independent with ambulation and adls. He states he does not have any DME in the home. He states he has a prescription plan and
uses [facility]. The discharge plan is to return home with his spouse when medically stable.
--- NOTE | 2023-05-03 11:09 | PTCARENOTE ---
Pt AAOx3 w/no c/o CP, but is 'mildly SOB'. Pt does state he is 'less SOB than when he came in'. Pt reports 1-04/02 chest 'tenderness' at his recent PPM insertion site. L chest wall w/aquacell dressing C/D/I over new PPM site. VS stable, w/BP improved
from admission at 145/89. Pt OOB w/1P contact guard assistance & states he 'no longer feels dizzy like he did in the ER'. Pt still encouraged to call for staff supervision when getting OOB. Pt w/call cook within reach & no addtl needs at this time.
--- NOTE | 2023-05-03 14:33 | W.PN.HOSP.TC ---
Today's Communication/Plan
-
monitor into tomorrow if stable will consider DC, pending repeat echo
Assessment / Plan
Assessment / Plan
Assessment:
Chest pain
Pericardial effusion likely from pericarditis
- continue Motrin, colchicine per Cards
- continue PPI while on NSAIDs
- TTE 05/02/23 normal EF, small to moderate pericardial effusion and no e/o hemodynamic significance
- repeat TTE in AM
- follow cards recs
Hypotension
- likely vasovagal etiology
- no events on pacer interrogation
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
parox Afib
- s/p DCCV 04/27/23
- currently in sinus
- holding Eliquis for now per cardiology
- noted options moving forward include ablation vs watchman for his recurrent GI bleeding and interrupted anticoagulation---will be an outpatient issue to follow up on.
Essential HTN
- continue ARB
non-TX trop elevation in setting of pericarditis
Prediabetes�
GERD/Mujica's esophagus
- PPI
Acute blood loss anemia into pericardial space in setting of chronic normocytic anemia
- Hemoglobin stable
History of GI bleeding
DVT ppx: SCDs
Code: Full
Anticipated Discharge: Within 24 hours
Subjective/Interval History
-
Date of Service: May 03, 2023
pain improving
Objective Data
-
Labs:
Laboratory Results
05/03/23
04:15
WBC 7.5
Hgb 8.8 L
Hct 25.6 L
Plt Count 171
Sodium 138
Potassium 4.3
Chloride 106
Carbon Dioxide 23
BUN 21 H
Creatinine 1.0
Glucose 108 H
Calcium 8.8
Total Bilirubin 1.0
AST 25
ALT 18
Alkaline Phosphatase 76
Vital Signs:
Vital Signs
Temp Pulse Resp BP Pulse Ox
98.2 F 71 18 145/89 97
05/03/23 11:59 05/03/23 08:00 05/03/23 11:59 05/03/23 07:59 05/03/23 12:46
I&O
05/02/23 05/03/23 05/04/23
06:59 06:59 06:59
Intake Total 240 / 240 720 / 720
Output Total 100 / 100
Balance 240 / 240 620 / 620
Physical Exam
-
General: Well Developed and Well Nourished
HEENT: Normocephalic and Atraumatic
Respiratory: Negative Wheezes or Rales
Cardiac: Regular Rhythm and S1/S2
Genito-urinary: No Costovertebral Tender
Neuro: AO x 3
Psych: Calm
Data Reviewed
-
Total Time Spent with Patient (in minutes): 45
Labs: Labs Reviewed by me
[2023-05-04 03:38] VITALS: BP 149/89
[2023-05-04 04:05] LABS: Hematocrit 24.6 % (39.0-52.0); Hemoglobin 8.4 g/dL (13.0-18.0); Mean Corp Hgb Conc. 34.1 g/dL (33.0-37.0); Mean Corpuscular Hgb 29.8 pg (27.0-31.0); Mean Corpuscular Volume 87.2 fL (80.0-94.0); Mean Platelet Volume 10.1 fL (7.4-10.4); Platelet Count 141 10^3/uL (130-400); Red Blood Cell Count 2.82 10^6/uL (4.70-6.10); Red Cell Dist. Width 13.7 % (11.5-14.5)
[2023-05-04 04:29] LABS: Blood Urea Nitrogen 23 mg/dl (9-20); Carbon Dioxide 21 mmol/L (22-30); Chloride 107 mmol/L (98-107); Estimated Creatinine Clearance 75 ml/min; Glucose 93 mg/dl (70-99); Potassium 4.3 mmol/L (3.5-5.1); Sodium 136 mmol/L (135-145); eGFR > 60.00
[2023-05-04 06:00] VITALS: BP 146/89
[2023-05-04 07:20] VITALS: BP 164/84
[2023-05-04] MEDS: THERAGRAN 1 TABLET PO (08:06)
[2023-05-04] MEDS: MOTRIN 600 MG PO (08:06)
[2023-05-04] MEDS: PROTONIX 40 MG PO (08:06)
[2023-05-04] MEDS: COLCHICINE 0.599999999999999978 MG PO (08:07)
[2023-05-04] MEDS: COZAAR 100 MG PO (08:07)
--- NOTE | 2023-05-04 08:24 | W.PN.CD ---
Today's Communication / Plan
-
- Echo this AM
- if OK, likely d/c home with very close follow up of symptoms, echo, and Hb
Impression / Plan
-
Pericarditis/pericardial effusion--
-pain improved from 07/31 to 04/30
-TTE focused study 05/02/23 normal lvef, small to moderate pericardial effusion and no e/o hemodynamic significance.
-continue colchicine and motrin
-repeat focused echo today
-hold DOAC for now given small to moderate effusion and anemia
-repeat echo next week to establish resumption of eliquis.
Acute hypotension:
-given association with pain, n/diaphoresis, episodic nature and loss of urine---seems c/w vasovagal.
-Improved with fluids
-continue to monitor
-we discussed recurrence and what to do for recurrent symptoms.
Anemia - baseline 9-10 and now 8.4. Likely dilutional but he will need outpatient follow up CBC
tachy-joaquim syndrome
- s/p PPM on 04/29/23
-rule out effusion
Afib - paroxysmal.
- in Sinus
- On last admission, Dr Limon discussed options including redo AF ablation vs watchman for his recurrent GI bleeding and interrupted anticoagulation---will be an outpatient issue to follow up on
- s/p DCCV 04/27/23
- s/p PVI, follows with Dr. Wheat at [facility], planning on transitioning to Dr Fair for CBC.
HTN - typically on Losartan, resume when needed.
GERD - chronic on Zegerid at home.
Moderate MR/MILD /MILD AR
History of GI bleeding - while on Xarelto he notes blood in his stool, transitioned to Eliquis, no on hold. .
-monitor hgb with NSAID
prior GI work up was unrevealing (Dr. Smyth).
Dispo
- Echo this AM
- if OK, likely d/c home with very close follow up of symptoms, echo, and Hb
Subjective: Very mild exertional dyspnea. No CP. No LH/dizziness
Data:
PPM insertion 04/29/23 Lead Analysis:
RA lead: P: 1.1 mV; Threshold: 1 V @ 0.4 ms; Impedance:361 ohms.
RV lead: R: 13.1 mV; Threshold: 0.75 V @ 0.4 ms; Impedance: 532 ohms.
Paced QRS characteristics: V1 has QR morphology and measures 100 ms in duration, LVAT (LV activation time) stim to peak V5 is 81 ms, and peak V1 to peak V5/6 is 39 ms.
Final Programming: DDDR 60-130 bpm.
Conclusion: Uncomplicated Medtronic pacemaker implant. The pacing system is MRI conditional. The RV lead captures the LBBB to provide successful LBB area pacing/conduction system pacing.
TTE 05/03/23:
Normal biventricular size and systolic function without regional wall motion
�abnormality.
Small to moderate concentric� pericardial effusion (largest pocket 1.3
�posterior to inferior LV) without evidence of hemodynamic compromise.
Compared to the prior on 04/29/2023, there is now a small to moderate pericardial
�effusion.
�
TTE �04/29/23 CONCLUSIONS
�Normal biventricular size and systolic function without regional wall motion
�abnormality. Estimated LVEF 60-65%.
�Moderate mitral regurgitation.
�Mild aortic stenosis. Mild aortic regurgitation.
�Moderate tricuspid regurgitation. Severely elevated PASP. Estimated pulmonary
�artery pressure of 60-65 mmHg. Assuming a right atrial pressure of 3 mmHg.
�
�No prior study available for comparison.
Physical Exam
Vital Signs/Labs
Vital Signs
Temp Pulse Resp BP Pulse Ox
36.3 C 78 18 164/84 97
05/04/23 07:19 05/04/23 07:20 05/04/23 07:19 05/04/23 07:20 05/04/23 07:19
05/03/23 05/04/2324
06:59 06:59 06:59
Actual Weight 190 lb 4.8 oz
05/04/23 03:47
05/04/23 03:47
LAB Results
05/02/23 05/02/23 05/02/23
15:57 18:57 22:36
Troponin I 0.045 H* 0.041 H* 0.043 H*
05/03/23 05/03/23
04:15 10:30
Troponin I 0.035 H* Cancelled
Physical Exam
Constitutional: No acute distress
EENT: Anicteric and Moist mucous membranes
Cardiovascular: Rhythm & rate is regular, Systolic murmur absent and Diastolic murmur absent
Respiratory: Respiratory effort normal, Lungs clear to auscul., Crackles Absent and Rhonchi Absent
GI: Soft, Distention absent, Non tender and Normal bowel sounds
Neuro/Psych: Alert
Data Reviewed
-
Date of Service: May 04, 2023
EKG: Other (As-SYSTEM DESIGNER)
[2023-05-04 08:55] VITALS: BMI 28.0
--- NOTE | 2023-05-04 09:27 | W.PN.HOSP.TC ---
Today's Communication/Plan
-
Echo today if improving then dc home on outlined motrin/colchicine regimen, cards f/u and repeat Echo/CBC next week
hold Eliquis at dc
Assessment / Plan
Assessment / Plan
Assessment:
Chest pain
Pericardial effusion likely from pericarditis
- continue Motrin x 2 weeks, colchicine x 3 months per Cards
- continue PPI while on NSAIDs
- TTE 05/02/23 normal EF, small to moderate pericardial effusion and no e/o hemodynamic significance
- repeat TTE today, possible DC home later
- follow cards recs
Hypotension
- likely vasovagal etiology
- no events on pacer interrogation
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
parox Afib
- s/p DCCV 04/27/23
- currently in sinus
- holding Eliquis for now per cardiology
- noted options moving forward include ablation vs watchman for his recurrent GI bleeding and interrupted anticoagulation---will be an outpatient issue to follow up on.
Essential HTN
- continue ARB
non-[place] trop elevation in setting of pericarditis
Prediabetes�
GERD/Mujica's esophagus
- PPI
possible Acute blood loss anemia into pericardial space in setting of chronic normocytic anemia, also component of diluation
- Hemoglobin 8.4; can resume oral iron he previously took and follow labs outpatient in 1 week
History of GI bleeding
DVT ppx: SCDs
Code: Full
Anticipated Discharge: Within 24 hours
Subjective/Interval History
-
Date of Service: May 04, 2023
some mild dyspnea with ambulating but no Lightheaded or dizziness, no cp
Objective Data
-
Labs:
Laboratory Results
05/04/23
03:47
WBC 7.0
Hgb 8.4 L
Hct 24.6 L
Plt Count 141
Sodium 136
Potassium 4.3
Chloride 107
Carbon Dioxide 21 L
BUN 23 H
Creatinine 0.8
Glucose 93
Calcium 9.0
Vital Signs:
Vital Signs
Temp Pulse Resp BP Pulse Ox
97.4 F 78 18 164/84 97
05/04/23 07:19 05/04/23 07:20 05/04/23 07:19 05/04/23 07:20 05/04/23 07:19
I&O
05/03/23 05/04/23 05/05/23
06:59 06:59 06:59
Intake Total 240 / 240 720 / 720
Output Total 100 / 100
Balance 240 / 240 620 / 620
Physical Exam
-
General: Well Developed and Well Nourished
HEENT: Normocephalic and Atraumatic
Respiratory: Negative Wheezes or Rales
Cardiac: Regular Rhythm and S1/S2
Genito-urinary: No Costovertebral Tender
Neuro: AO x 3
Hematologic / Lymphatic: No Lymphadenopathy
Psych: Calm
Data Reviewed
-
Total Time Spent with Patient (in minutes): 45
Labs: Labs Reviewed by me
[2023-05-04 11:50] VITALS: BP 156/94
--- NOTE | 2023-05-04 12:50 | W.DS.TRANS ---
DC Summary - Senior Service Aide
-
Discharge Instructions:
Sleep Apnea Risk Intermediate
Discharge Diagnosis/Procedures pericarditis with improving effusion
Diet Regular
Activity As tolerated
Bathing Restrictions None
Blood Work CBC in one week- lab slip sent electronically to
[facility]- please get 1-2 days prior to your follow
-up visit on 05/12/23
Others Tests Repeat echo scheduled for 05/10/23 at 1:00 PM at
cardiology office [address] in
[place] ([facility] cardiology)-
office left you a voicemail with this info. [phone]
[phone] call with any questions.
Instructions:
Stand-Alone Forms:
Changes to Home Medications: Yes
Discharge Medications:
DC Medications w/original date entered in [facility]
omeprazole 20 mg-sodium bicarbonate 1.1 gram capsule (Zegerid OTC) 1 cap PO BID Gastrointestinal issue 07/09/22
acetaminophen 500 mg tablet (Tylenol Extra Strength) 1,000 mg PO BIDPRN PRN mild pain 05/02/23
losartan 100 mg tablet 100 mg PO DAILY Blood Pressure 05/02/23
srvxzeag-jc-vqvcn 300 mcg-K 60 mcg-lycop 600 mcg-lutein 300 mcg tablet (Centrum Silver Men) 1 tab PO DAILY Supplement 05/02/23
colchicine 0.6 mg tablet 0.6 mg PO BID #60 tabs 05/04/23
ibuprofen 600 mg tablet 600 mg PO TID #42 tabs 05/04/23
Home Medication Changes
[place] held
Pending Results: No
Total time spent discharging patient (in min): 41
== END 2023-05-04 14:35 | disposition home or self-care (01) ==
LOC: IVU 22:11
PROVIDERS: Emergency Medicine; Nurse Practitioner; ADMITTING PHYSICIAN Hospitalist; ATTENDING PHYSICIAN Internal Medicine; CONSULT PHYSICIAN Internal Medicine Cardiovascular Disease; EMERGENCY PHYSICIAN Emergency Medicine; FAMILY PHYSICIAN Family Medicine
DX: I31.9 Disease of pericardium, unspecified (principal); R07.9 Chest pain, unspecified; I48.0 Paroxysmal atrial fibrillation; I10 Essential (primary) hypertension; D62 Acute posthemorrhagic anemia; K21.9 Gastro-esophageal reflux disease without esophagitis; R11.0 Nausea; I5A Non-ischemic myocardial injury (non-traumatic); I95.9 Hypotension, unspecified; I08.3 Combined rheumatic disorders of mitral, aortic and tricuspid valves; J90 Pleural effusion, not elsewhere classified; R73.03 Prediabetes; K22.70 Barrett's esophagus without dysplasia; Z95.0 Presence of cardiac pacemaker; Z87.19 Personal history of other diseases of the digestive system; Z79.01 Long term (current) use of anticoagulants; Z87.891 Personal history of nicotine dependence
CPT/HCPCS: 93308; 71046; 80048; 80053; 82962; 84484; 85025; 85027; 86140; 93005; 93321; 93325; 96360; 99285; G0378

== ENCOUNTER → 2023-05-10 12:45 | Outpatient (REF) | payer MEDICARE, BC, SELFPAY | LOC: DHCBC MAIN 12:45 | PROVIDERS: ATTENDING PHYSICIAN Nurse Practitioner; FAMILY PHYSICIAN Family Medicine | DX: I31.39 Other pericardial effusion (noninflammatory) (principal) | CPT/HCPCS: 93308 ==

== ENCOUNTER → 2023-05-26 14:24 | Outpatient (REF) | payer MEDICARE, BC, SELFPAY | LOC: DHCBC MAIN 14:24 | PROVIDERS: ATTENDING PHYSICIAN Nurse Practitioner; FAMILY PHYSICIAN Family Medicine | DX: I48.19 Other persistent atrial fibrillation (principal); I31.39 Other pericardial effusion (noninflammatory) | CPT/HCPCS: 93308 ==

== ENCOUNTER 2023-05-30 16:25 | Inpatient (IN) | payer MEDICARE, BC, SELFPAY ==
[2023-05-30] VITALS (11 sets, daily range): BP systolic 134–170; BP diastolic 76–101; BMI 28.5
--- NOTE | 2023-05-30 11:50 | ED.GENMED ---
History of Present Illness
General
Chief Complaint: Breathing Problem
Source: patient and spouse
Exam Limitations: none
Time Seen by Provider: 05/30/23 11:33
Nursing documentation reviewed up to this point in time: agreed with
Travel History
Have you had any contact with someone who has COVID-19?: No
Do you have any symptoms of coronavirus? Fever > 100 degrees, chills, cough, shortness of breath, sore throat, loss of taste or smell, muscle aches, or headache?: No
History of Present Illness
History of Present Illness:
77-year-old male with history of A-fib with ablation, HTN, pacemaker, GERD, GI bleed present for increased DESHPANDE since 05/26.
Patient with history of A-fib has had 5 cardioversions since 2019 at [facility].
Had ablation a year and a half ago and then 2 cardioversions since that time. Eventually decided between Dr. Fair after his last cardioversion on 04/26 and tachy-joaquim syndrome that he needed a pacemaker and that was inserted on 04/28
05/02: here in ED for CP, found to have pericardial effusion, started on Ibuprofen 600 mg TID and Colchecine and Eliquis DC'd.
05/03-05/17: [place] well, walking 3 miles, active
05/18: feeling better, Ibuprofen and Colchicine DC'd
05/20: developed SOB, weakness, Dr. Fair notified and restarted his Ibuprofen 400 mg TID x 3 days then 200 mg daiy and Colchecine 0.6 mg BID
[place] 'OK' until 05/26 when SOB worsened, DESHPANDE, trouble sleeping due to SOB. Saw Dr. Fair, had echo showing 'worsening pericardial fluid.' Upped Ibuprofen back to 600 mg TID and is scheduled for repeat echo in 3 days.
Since 05/26 he's had general body aches, pain in both arms, 'very mild mid back pain,'
Past History
Past History
ED Past Medical History: Arrthythmia (atrial fibrillation), GERD and HTN
ED Past Surgical History: Cardiac (Cardioversion, pacemaker 04/29/23) and Other (Colonoscopy)
Patient has exhibited threatening behavior?: No
Social History
Tobacco: Former smoker
Alcohol: Daily
Drug: None
Personal:
Living: with family
Review of Systems
Review of Systems
Allergies reviewed?: Yes
All Other Systems: ROS reviewed and negative except as documented in HPI and ROS
Constitutional: Reports fatigue; Denies fever or chills
EENT: Reports other (Intermittent right neck and ear pain)
Respiratory: Reports cough (mild cough) and trouble breathing (DESHPANDE)
Cardiac: Reports chest pain; Denies diaphoresis, palpitations or syncope
ABD/GI: Reports abdominal pain, anorexia and pain (any time he eats, has 'tremendous' flatulence and belching); Denies nausea, vomiting, diarrhea, bloody stools or black stools
Musculoskeletal: Denies edema
Skin: Reports no symptoms
Neurological: Reports other (tingling intermittently both hands and feet); Denies dizzy, headache or numbness
Phy Exam
Physical Exam
Physical Exam:
GENERAL: No acute distress. A&Ox3.
CONSTITUTIONAL: Afebrile.
EYES: clear, conjunctivae normal
Neck: Supple
ENMT: moist mucus membranes, Pharynx nl
RESPIRATORY: Regular respirations tachypneic at 26 RR, nonlabored, lungs clear.
CARDIOVASCULAR: Regular rate and rhythm, no murmurs, no rubs.
GI: Soft, nontender, normal BS
MUSCULOSKELETAL: Moves with ease. Well perfused. No edema
SKIN: Warm, dry, pink
PSYCH: Normal mood and affect. Well kept, interactive and appropriate
NEUROLOGIC: Awake, alert and oriented. No focal neurological deficits
Scores
Heart Failure Risk
Heart Failure Risk Score: Not Applicable
Course
Orders/Labs/Results
Orders:
Orders
05/30/23 10:27
ECG [Electrocardiogram (*1)] Urgent
Reason for Study: Chest Pain
EKG- Treatment ONCE
05/30/23 12:13
CR Chest - 2 Views Urgent
Comment:
Reason For Exam: DESHPANDE increasing, hx pericardial effusion
05/30/23 12:14
Complete Blood Count/With Diff Urgent
Comprehensive Metabolic Panel Urgent
NT-proBNP Urgent
Troponin I Urgent
05/30/23 12:40
Echo Follow-up Study Routine
Reason for Study: pericardial effusion
Abnormal Lab Results
05/30/23
12:14
RBC 3.23 L 10^6/uL
(4.70-6.10)
Hgb 8.8 L g/dL
(13.0-18.0)
Hct 28.0 L %
(39.0-52.0)
MCHC 31.4 L g/dL
(33.0-37.0)
Absolute Lymphs (auto) 0.9 L 10^3/uL
(1.2-3.4)
Absolute Monos (auto) 0.8 H 10^3/uL
(0.1-0.6)
Lymphocytes % 12.6 L %
(20.5-51.1)
Monocytes % 12.2 H %
(1.7-9.3)
BUN 23 H mg/dl
(9-20)
Alkaline Phosphatase 143 H U/L
(38-126)
05/30/23 12:14
05/30/23 12:14
Vital Signs
Initial and Last Documented VS:
Initial Vital Signs
Temp Pulse Resp BP Pulse Ox
98.0 F 65 20 157/90 98
05/30/23 10:37 05/30/23 10:37 05/30/23 10:37 05/30/23 10:37 05/30/23 10:37
Last Documented Vital Signs
Temp Pulse Resp BP Pulse Ox
98.0 F 61 22 156/98 98
05/30/23 10:37 05/30/23 14:30 05/30/23 14:30 05/30/23 14:00 05/30/23 11:45
Social Professionals consulted with Physician
Social Professionals consulted with physician?: Yes
Name of Physician Consulted: Noh
MDM/Problems Addressed
Differential Diagnosis Includes:
worsening pericardial effusion, CHF, SD
MDM/Problems Addressed:
77-year-old male with history of A-fib with ablation, HTN, pacemaker, GERD, GI bleed present for increased DESHPANDE since 05/26.
Patient with history of A-fib has had 5 cardioversions since 2019 at [facility].
Had ablation a year and a half ago and then 2 cardioversions since that time. Eventually decided between Dr. Fair after his last cardioversion on 04/26 and tachy-joaquim syndrome that he needed a pacemaker and that was inserted on 04/28
05/02: here in ED for CP, found to have pericardial effusion, started on Ibuprofen 600 mg TID and Colchecine and Eliquis DC'd.
05/03-05/17: [place] well, walking 3 miles, active
05/18: feeling better, Ibuprofen and Colchicine DC'd
05/20: developed SOB, weakness, Dr. Fair notified and restarted his Ibuprofen 400 mg TID x 3 days then 200 mg daiy and Colchecine 0.6 mg BID
[place] 'OK' until 05/26 when SOB worsened, DESHPANDE, trouble sleeping due to SOB. Saw Dr. Fair, had echo showing 'worsening pericardial fluid.' Upped Ibuprofen back to 600 mg TID and is scheduled for repeat echo in 3 days.
Since 05/26 he's had general body aches, pain in both arms, 'very mild mid back pain,'
Patient is hemodynamically stable.
Consulted cardiology Dr. Osuna who will be in to see pt
1:40 PM
CBC: Hemoglobin 8.8 which is his recent baseline
CMP: No clinically significant abnormality
Troponin normal
BNP 2190
Chest x-ray: Radiology report read: IMPRESSION:
1. Small bilateral pleural effusions. Left lower lobe airspace disease may also be present.
2. Moderate cardiomegaly. Mild central pulmonary vascular congestion.
Cardiology saw Mr. Harrison, bedside echo: mild increase in pericardia fluid, Dr. Schreiber to do pericardial window.
Pt remains stable
Hospitalist notified of admission.
*EKG
EKG Intrepretation Date: 05/30/23
Interpretation: abnormal
Rate: normal
Rhythm: PVC's and ventricular paced
[place]: normal axis
QRS Pattern: normal QRS
Ischemia: no ischemia
*Critical Care Note
Total Time (30-74mins, 75-104mins- exclusive of procedures): Not Applicable
ED Attending Note
-
Portions of this chart may have been created with voice recognition software.� Occasional wrong word or��sound alike� substitutions may have occurred due to the inherent limitations of voice recognition software.
Discharge Plan
Departure
Patient Disposition: Admit
Date of Disposition: 05/30/23
Time of Disposition: 13:46
Admit to: Telemetry
Presentation/result/management discussed w/ accepting MD/DO: Hospitalist
Condition: Fair
Discharge Problem:
Pericardial effusion
Prescriptions:
No Action
omeprazole-sodium bicarbonate [Zegerid OTC] 20-1.1 mg-gram Capsule
1 cap PO BID
losartan 100 mg Tablet
100 mg PO DAILY
Centrum Silver Men [id number] mcg Tablet
1 tab PO DAILY
ibuprofen 600 mg Tablet
600 mg PO TID Qty: 42 0RF
colchicine 0.6 mg Tablet
0.6 mg PO BID Qty: 60 2RF
ferrous sulfate 325 mg (65 mg iron) Tablet
325 mg PO MOWEFR
Referrals:
Isrrael Rizzo DO [Family Provider] -
Interventions
Interventions:
ED- Fall Risk Assessment Last Done: 05/30/23 12:18
*ED COVID-19 Vaccine History Last Done: 05/30/23 10:37
ED- Cardiac Assessment Last Done: 05/30/23 12:18
ED- Pulmonary Assessment Last Done: 05/30/23 12:18
Discharge Date and Time
Print Language: LUXEMBOURGISH
[2023-05-30 12:28] LABS: % Basophils 0.3 % (0-2); % Eosinophils 0.7 % (0-6); % Immature Granulocytes 0.3 % (0-0.5); % Lymphocytes 12.6 % (20.5-51.1); % Monocytes 12.2 % (1.7-9.3); % Neutrophils 73.9 % (42.2-75.2); Absolute Eosinophils 0.1 10^3/uL (0-0.7); Absolute Lymphocytes 0.9 10^3/uL (1.2-3.4); Absolute Monocytes 0.8 10^3/uL (0.1-0.6); Hemoglobin 8.8 g/dL (13.0-18.0); Mean Corp Hgb Conc. 31.4 g/dL (33.0-37.0); Mean Corpuscular Hgb 27.2 pg (27.0-31.0); Mean Corpuscular Volume 86.7 fL (80.0-94.0); Mean Platelet Volume 10.1 fL (7.4-10.4); Nucleated Red Blood Cells % 0 % (-); Platelet Count 273 10^3/uL (130-400); Red Blood Cell Count 3.23 10^6/uL (4.70-6.10); Red Cell Dist. Width 14.2 % (11.5-14.5); White Blood Cell Count 6.7 10^3/uL (4.8-10.8)
[2023-05-30 12:40] LABS: ALT (SGPT) 31 U/L (0-50); AST (SGOT) 32 U/L (17-59); Albumin 4.1 g/dl (3.5-5.0); Alkaline Phosphatase 143 U/L (38-126); Blood Urea Nitrogen 23 mg/dl (9-20); Calcium 9.5 mg/dl (8.4-10.2); Carbon Dioxide 24 mmol/L (22-30); Chloride 103 mmol/L (98-107); Estimated Creatinine Clearance 67 ml/min; Glucose 92 mg/dl (70-99); Potassium 4.5 mmol/L (3.5-5.1); Sodium 139 mmol/L (135-145); Total Bilirubin 1.1 mg/dl (0.2-1.3); Total Protein 6.6 g/dl (6.3-8.2); eGFR > 60.00
[2023-05-30 12:50] LABS: NT-proBNP 2190 pg/ml; Troponin I 0.019 ng/ml
--- NOTE | 2023-05-30 13:17 | CON.CAR ---
Addendum entered and electronically signed by Kirk Osuna MD 05/30/23 15:16:
I saw and examined the patient.
The ASSOCIATE FACULTY's note was reviewed and I agree with the note.
Comment: 77 y/o male with paroxysmal AFIB with hx PVI, hypertension, and GERD. He had a CV on 04/27/23 (previously followed by EP Dr. Wheat), then came to with recurrent AFIB and tachy-joaquim syndrome with symptomatic bradycardia and 2nd degree AV
block on 04/29/2023, resulting in permanent pacemaker placement by Dr. Barron. He has had a residual pericardial effusion that is now concerning for early tamponade.
- NPO
- pericardiocentesis pending
Original Note:
Consultation
Consultation Request
Date/Time Consultation Requested: 05/30/23 1230
Date/Time Consultation Performed: 05/30/23 1240
Requesting Provider: Yanira Hanson NP
Performing Provider: Mya CASTAÑEDA for Dr. Osuna
Reason for Consultation: SOB, pericardial effusion
Medical History
-
Chief Complaint: SOB
History of Present Illness:
77 y/o male with paroxysmal AFIB with hx PVI, hypertension, and GERD. He had a CV on 04/27/23 (previously followed by EP Dr. Wheat), then came to with recurrent AFIB and tachy-joaquim syndrome with symptomatic bradycardia and 2nd degree AV block on
04/29/2023, resulting in permanent pacemaker placement by Dr. Barron. Then, he came back to the hospital with chest discomfort and was seen to have mild to moderate pericardial effusion, and worsened anemia. Eliquis was held, but then later resumed
when pericardial effusion had improved as evidenced by echo. Otherwise, he was maintained on colchicine and ibuprofen. He was feeling well, but then started to have DESHPANDE and had an echo last week (05/26/23), which showed pericardial effusion had
increased in size to moderate. Therefore, Eliquis was stopped. DESHPANDE worsened over the weekend and he also reported some intermittent chest/back discomfort, as well as overall weakness, and some GI symptoms (gas and poor appetite at times). He is in
no distress at the time of my assessment. BP is stable.
Past Medical History
Past Medical History: Arrhythmias, GERD and HTN
Social History
Personal:
Living: With Family
Family History
Family History: Reviewed & Not Pertinent
Allergies / Home Medications
Allergy/AdvReac Type Severity Reaction Status Date / Time
No Known Allergies Allergy Verified 05/02/23 15:50
�Medication �Instructions �Recorded �Confirmed �Type
omeprazole 20 mg-sodium 1 cap PO BID Gastrointestinal issue 07/09/22 05/02/23 History
bicarbonate 1.1 gram capsule
(Zegerid OTC)
acetaminophen 500 mg tablet 1,000 mg PO BIDPRN PRN mild pain 05/02/23 05/02/23 History
(Tylenol Extra Strength)
losartan 100 mg tablet 100 mg PO DAILY Blood Pressure 05/02/23 05/02/23 History
bcocoqpw-ya-xlbpo 300 mcg-K 60 1 tab PO DAILY Supplement 05/02/23 05/02/23 History
mcg-lycop 600 mcg-lutein 300 mcg
tablet (Centrum Silver Men)
colchicine 0.6 mg tablet 0.6 mg PO BID #60 tabs 05/04/23 Rx
ibuprofen 600 mg tablet 600 mg PO TID #42 tabs 05/04/23 Rx
Review of Systems
-
History Source: Patient
All other systems: Negative unless noted
Respiratory: Trouble Breathing
Cardiac: Chest Pain
Abdomen/GI: Other (gas)
Neurological: Weakness
Physical Exam
Vital Signs
Temp Pulse Resp BP Pulse Ox
98.0 F 65 25 157/90 98
05/30/23 10:37 05/30/23 12:15 05/30/23 12:15 05/30/23 10:37 05/30/23 11:45
Lab Results
05/30/23 12:14
05/30/23 12:14
Troponin I 0.019 ng/ml 05/30/23 12:14
Diy-Q-Vkvvferrhcm Pept 2190 pg/ml 05/30/23 12:14
Physical Exam
General: Well Developed, Well Nourished and No Apparent Distress
HEENT: Normocephalic and Anicteric
Respiratory: Clear and Non Labored Respirations
Cardiac: Regular Rhythm
Breast: Deferred by me
GI: Soft, Non Distended and Normal Bowel Sounds
Musculoskeletal: No Edema
Skin: Warm and Dry
Neuro: AO x 3
Psych: Calm
Impression / Plan
-
Pericardial effusion:
-high-risk diagnosis
-check echo now in this patient with worsened SOB and known pericardial effusion
-continue to hold Eliquis
-on colchicine and ibuprofen
-follow hgb
-if worsened, may need pericardiocentesis
PAF:
-rate is controlled
-Eliquis held for above
HTN:
-elevated in ED, but sounds like it has been stable overall at home
Pacemaker:
-continue to monitor in device clinic
-site appears well healing
Data Reviewed
-
EKG: Tracing Personally Visualized and interpreted (v paced )
Radiology: Report Reviewed by me (CXR: Small bilateral pleural effusions. Left lower lobe airspace disease may also be present. Moderate cardiomegaly. Mild central pulmonary vascular congestion.)
Medical Tests (Nuc Med, Echo etc): Report Reviewed by me (echo 05/26/23: Normal left ventricular size, wall thickness and systolic function. LV ejection fraction is 60-65%. Mild mitral regurgitation. Mild tricuspid regurgitation. Increased pericardial
effusion from previous (moderate). )
Labs: Labs Reviewed by me
--- NOTE | 2023-05-30 15:15 | HPS.HSE ---
Family Physician
-
Family Physician: Isrrael Rizzo
Chief Complaint
-
sob
History of Present Illness
77-year-old male with history of A-fib with ablation, HTN, pacemaker, GERD, GI bleed present with progressively sob for past few weeks. on 04/26 and tachy-joaquim syndrome that he needed a pacemaker and that was inserted on 04/28. he was found to have
pericardial effusion, started on Ibuprofen 600 mg TID and Colchicine. he was doing fine on colchicine and ibuprofen. his ibuprofen was discontinued on 05/18. the following day,he stated having pain and sob. sob which was worse with exertion. he was
started on ibuprofen and to slowly weaning off but patient did not feel better at all. stated sob worse with exertion. also complained of chest pain.he started having weakness. Patient stated poor appetite, very nauseous. Patient also complained
of belching after eating food. Patient denied any headache dizziness or syncopal episode. Patient denied any runny nose nasal congestion or cough. Patient denied any abdominal pain vomiting or diarrhea. Patient denied dysuria hematuria.
Chest x-ray with bilateral pleural effusion, moderate cardiomegaly and pulmonary vascular congestion
Echocardiogram with impression of moderate to large pericardial effusion.
Admitted for further management
Medical History
Past Medical History
Past Medical History: Reports Other
Additional Past Medical History:
Iron deficiency anemia
Hypertension
Colon polyps
BPH
Paroxysmal A-fib
History of basal cell carcinoma
Hyperlipidemia
GI bleed
Diverticulosis
Angiodysplasia of cecum
Past Surgical History: Reports Other
Additional Past Surgical History:
Multiple cardioversion
Cardiac ablation
Bilateral knee replacement
Social History
Tobacco: Non-smoker
Alcohol: Occasional
Drug: None
Personal:
Living: With Family
Family History
Family History: Not pertinent
Allergies / Home Medications
Allergies reflects when Allergies were last updated in [facility].
Home Medications with original date entered in [facility]
Allergy/Medication List:
Allergies
Allergy/AdvReac Type Severity Reaction Status Date / Time
No Known Allergies Allergy Verified 05/02/23 15:50
Home Medications
omeprazole 20 mg-sodium bicarbonate 1.1 gram capsule (Zegerid OTC) 1 cap PO BID Gastrointestinal issue 07/09/22
losartan 100 mg tablet 100 mg PO DAILY Blood Pressure 05/02/23
sfujkkbu-mq-snjxb 300 mcg-K 60 mcg-lycop 600 mcg-lutein 300 mcg tablet (Centrum Silver Men) 1 tab PO DAILY Supplement 05/02/23
colchicine 0.6 mg tablet 0.6 mg PO BID #60 tabs 05/04/23
ibuprofen 600 mg tablet 600 mg PO TID #42 tabs 05/04/23
ferrous sulfate 325 mg (65 mg iron) tablet 325 mg PO MOWEFR 05/30/23
Review of Systems
-
Constitutional: Reports No Symptoms
EENT: Reports No Symptoms
Respiratory: Reports Trouble Breathing
Cardiac: Reports Chest Pain
Abdomen/GI: Reports No Symptoms
: Reports No Symptoms
Musculoskeletal: Reports No Symptoms
Skin: Reports No Symptoms
Neurological: Reports No Symptoms
Endocrine: Reports No Symptoms
Hematologic/Lymphatic: Reports No Symptoms
Psych: Reports No Symptoms
Physical Exam
Vital Signs
Vital Signs
Temp Pulse Resp BP Pulse Ox
98.0 F 61 22 156/98 98
05/30/23 10:37 05/30/23 14:30 05/30/23 14:30 05/30/23 14:00 05/30/23 11:45
Physical Exam
General: Well Developed, Well Nourished and No Apparent Distress
HEENT: NormoCephalic, Moist mucous membranes and Atraumatic
Respiratory: Clear
Cardiac: S1/S2 and Regular Rhythm; No Murmur or Rub
GI: Soft, Non Tender, Non Distended and Normal Bowel Sounds; No Organomegaly
Rectal: Deferred by Provider
Musculoskeletal: No Clubbing, No Cyanosis and No Edema
Skin: No Rash
Neuro: AO x 3 and Nonfocal/grossly intact
Psych: Calm
Laboratory Results
-
05/30/23 12:14
05/30/23 12:14
Laboratory Results
Total Bilirubin 1.1 mg/dl (0.2-1.3) 05/30/23 12:14
AST 32 U/L (17-59) 05/30/23 12:14
ALT 31 U/L (0-50) 05/30/23 12:14
Alkaline Phosphatase 143 U/L (38-126) H 05/30/23 12:14
Troponin I 0.019 ng/ml 05/30/23 12:14
Data Reviewed
-
Diagnostic Radiology: Report Reviewed by me
Lab Data: Labs Reviewed by me
Impression/Plan
-
#worsening sob likely from pericardial effusion
-chest x ray Small bilateral pleural effusions. Left lower lobe airspace disease may also be present.Moderate cardiomegaly. Mild central pulmonary vascular congestion.
-ECHO Normal left ventricular size and systolic function.
No regional wall motion abnormalities are seen.
LV ejection fraction is 55-60% by visual assessment.
RV appears small and underfilled, with possible diastolic collapse, concerning
for possible early tamponade/tamponade.
Moderate to large pericardial effusion (2.2cm). Early tamponade.
IVC is mildly dilated at 2.5 cm with normal inspiratory collapse.
Compared to prior from May 26, 2023, RV appears smaller and underfilled
concerning for possible early tamponade/tamponade. The pericardial effusion is
larger on today's study.
-continue to hold Eliquis
-on colchicine and ibuprofen
-follow hgb
-Patient may need pericardiocentesis
-Maintain n.p.o.
-Cardiology consulted
-
#anemia of chronic disease
-hgb 8.8
-no active bleeding
-Ferrous sulfate continued
#PAF
-EKG with paced rhythm occasional PVCs
-rate is controlled
-Eliquis held for above
-Pacemaker in place
#HTN:
-elevated in ED
-Losartan continued
# GERD
-Omeprazole continued
#DVT prophylaxis
-scd
#CODE status
-full code
[2023-05-30 17:27] LABS: Body Fluid Hematocrit 8.4 %
--- NOTE | 2023-05-30 17:31 | ITS.CL.PN ---
[facility] - Procedure Note
Procedure
Procedure Note:
PERICARDIOCENTESIS PROCEDURE NOTE
Date of procedure: 05/30/2023
Referring Physician/Provider: Kirk Osuna M.D.
Indication: Large, symptomatic pericardial effusion.
Procedure:
After obtaining consent, the patient was brought to the cardiac labeling specialist and placed in a recumbent position. Echocardiogram was used to ascertain the best approach vector. A(n) subxiphoid approach was selected. The epigastric was anesthetized with
1% lidocaine. Under ultrasound guidance, a micropuncture needle was advanced into the pericardial space under negative pressure. After obtaining flashback of pericardial fluid, the micropuncture wire was advanced into the pericardial space and the
needle was removed. The micropuncture sheath was advanced over the wire and the wire and dilator were removed. Agitated saline was injected through the micropuncture sheath confirming its presence in the pericardial space on echocardiography. A
0.035 inch J-wire was advanced through the micropuncture sheath and into the pericardial space. The micropuncture sheath was removed and a 6 Georgian sheath was advanced over the 0.035 inch wire. A pigtail catheter was advanced through the sheath over
the J-wire and placed in the pericardial space. The J-wire was removed. The pericardial pressure was measured. A sufficient sample of pericardial fluid was removed and sent for laboratory testing (hemoglobin, hematocrit, white blood cell count, LDH,
albumin, total protein, cytology and culture). The pigtail catheter was then connected to a Vacutainer and the pericardial space was evacuated. Serial echocardiography confirmed reduction in the pericardial effusion from severe to trace. All
evidence of tamponade was removed. The 6 Georgian sheath was sutured into place. The pigtail catheter was likewise sutured into place then curled around the sheath and covered by a sterile Tegaderm. Repeat pericardial pressure was measured,
confirming significant reduction. The pigtail catheter was then connected to a MARIAJOSE drain to suction. The patient reported significant improvement in their shortness of breath.
Procedure Details:
Approach: Subxiphoid
Sheath/Drain size (Fr) 6
Pericardial Volume (mL): 875
Effusion type: Bloody
Non-effusion blood loss (mL): None
Pericardial pressures
Pre drainage (mmHg): 26
Post drainage (mmHg): 9
Radiation dose:
Dose (mGy): 30.56
DAP (Gy*cm2): 2.7963
Fluoroscopy Time (minutes): 0.4
Conclusions:
1. Successful placement of a 6 Georgian pericardial drain via subxiphoid approach, yielding 875 mL of bloody pericardial fluid.
2. Pericardial fluid has been sent for laboratory analysis.
Yon Schreiber DO, FACC, FACP
Copy to: Kirk Osuna M.D., Isrrael Rizzo D.O.
[2023-05-30 17:38] LABS: Body Fluid Glucose 63 mg/dl; Body Fluid Protein 5.4 g/dl
--- NOTE | 2023-05-30 17:50 | PTCARENOTE ---
Rec'd report from [place] in laboratory animal caretaker. Rec'd pt AAOx3 w/no c/o CP or SOB. Pt w/pericardial drain in place in mid chest w/bloody drainage. Dressing C/D/I. VS stable. Pt reports pain improved & rates it as 04/02. Pt w/call cook within reach & plan of
care ongoing.
[2023-05-30 17:51] LABS: Body Fluid Granulocytes 34 %; Body Fluid Lymphocytes 50 %; Body Fluid Macrophages 16 %; Body Fluid WBC 789 /CUMM
[2023-05-30 17:54] LABS: Body Fluid Second Tech LD
[2023-05-30 18:13] LABS: Body Fluid LDH 2443 U/L
--- NOTE | 2023-05-30 18:58 | W.PN.UPDATE ---
Update Note
Progress Note Update
This note serves as an addendum to the H&P by GARRY Dias, on May 30, 2023.
77-year-old male with history of A-fib with ablation, hypertension, pacemaker for with symptomatic bradycardia and 2nd degree AV block on 04/29/2023, GERD, and GI bleed presented with progressively sob for past few weeks. He was found to have
pericardial effusion about a month ago, started on Ibuprofen 600 mg TID and Colchicine. He was doing fine, however his ibuprofen was discontinued on 05/19/23 and on the following day, he started having shortness of breath again; he was restarted on
ibuprofen and to slowly wean off but patient did not feel better at all. He also started having chest pains, weakness, nausea, and decreased appetite. Patient also complained of belching after eating food.
Chest x-ray with bilateral pleural effusion, moderate cardiomegaly and pulmonary vascular congestion.
Echocardiogram with impression of moderate to large pericardial effusion.
At the time of my attempted patient encounter, patient had already been taken to the cardiac animal laboratory helper for planned pericardiocentesis.
Review of vital signs showed patient has been afebrile, HR is in the 60s and 70s, SBP elevated in the 150s to 170, RR in the 20s, upper 90s oxygen saturation on room air.
Physical Exam
Physical Exam could not be performed at the time of attempted patient encounter as patient was in cardiac catheterization lab to have the procedure done.
Assessment/Plan
#worsening sob likely from pericardial effusion
-chest x ray Small bilateral pleural effusions. Left lower lobe airspace disease may also be present.Moderate cardiomegaly. Mild central pulmonary vascular congestion.
-ECHO as per blade groover's report:
Normal left ventricular size and systolic function.
No regional wall motion abnormalities are seen.
LV ejection fraction is 55-60% by visual assessment.
RV appears small and underfilled, with possible diastolic collapse, concerning
for possible early tamponade/tamponade.
Moderate to large pericardial effusion (2.2cm). Early tamponade.
IVC is mildly dilated at 2.5 cm with normal inspiratory collapse.
Compared to prior from May 26, 2023, RV appears smaller and underfilled
concerning for possible early tamponade/tamponade. The pericardial effusion is
larger on today's study.
-continue to hold Eliquis for procedure, will likely resume tomorrow
-on colchicine and ibuprofen
-follow hgb
-Patient had pericardiocentesis earlier today: 875 cc of bloody pericardial fluid removed: follow-up on studies
-Cardiology consulted
#anemia of chronic disease
-hgb 8.8
-no active bleeding
-Ferrous sulfate continued
#PAF
-EKG with paced rhythm occasional PVCs
-rate is controlled
-Eliquis held for above
-Pacemaker in place
#HTN:
-elevated in ED
-Losartan continued
# GERD
-Omeprazole continued
#DVT prophylaxis
-scd
#CODE status
-full code
[2023-05-30] MEDS: PROTONIX 40 MG PO (20:23)
[2023-05-30] MEDS: COLCHICINE 0.599999999999999978 MG PO (20:23)
[2023-05-30] MEDS: MOTRIN 600 MG PO (21:58)
--- NOTE | 2023-05-31 03:23 | PTCARENOTE ---
Denied any complaints of pain or discomfort when questioned. Bloody drainage from pericardial drain. Sleeping at intervals.
[2023-05-31 04:50] VITALS: BP 152/86
[2023-05-31 05:33] LABS: Hematocrit 27.3 % (39.0-52.0); Hemoglobin 8.9 g/dL (13.0-18.0); Mean Corp Hgb Conc. 32.6 g/dL (33.0-37.0); Mean Corpuscular Hgb 27.1 pg (27.0-31.0); Mean Corpuscular Volume 83.2 fL (80.0-94.0); Mean Platelet Volume 9.7 fL (7.4-10.4); Platelet Count 277 10^3/uL (130-400); Red Blood Cell Count 3.28 10^6/uL (4.70-6.10); Red Cell Dist. Width 14.5 % (11.5-14.5); White Blood Cell Count 6.1 10^3/uL (4.8-10.8)
[2023-05-31 05:56] LABS: Blood Urea Nitrogen 19 mg/dl (9-20); Calcium 8.7 mg/dl (8.4-10.2); Carbon Dioxide 21 mmol/L (22-30); Chloride 108 mmol/L (98-107); Estimated Creatinine Clearance 75 ml/min; Glucose 99 mg/dl (70-99); Potassium 4.3 mmol/L (3.5-5.1); Sodium 136 mmol/L (135-145); eGFR > 60.00
[2023-05-31 07:01] VITALS: BP 144/82
--- NOTE | 2023-05-31 08:22 | W.PN.CD ---
Today's Communication / Plan
-
Monitor drain output.
When drain output is < 0.5-1 mL/hour x 12-24 hours, we will repeat limited TTE. If TTE shows persistent resolution of effusion, we will pull drain.
Resume home losartan 100 mg daily for HTN.
Impression / Plan
-
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
to have a large, symptomatic pericardial effusion.
#Pericardial effusion:
-S/P pericardiocentesis via subxyphoid approach for 875 mL of bloody fluid.
-Effusion resolved.
-Continue colchicine and ibuprofen.
-Monitor drain output. When drain output is < 0.5-1 mL/hour x 12-24 hours, we will repeat limited TTE. If TTE shows persistent resolution of effusion, we will pull drain.
#PAF
-Currently in AF.
-Rate controlled without medication.
-CHADS2-Vasc = 3 (HTN, Age x2).
-Apixaban on hold for bloody pericardial effusion.
#HTN
-Chronic, stable.
-Hypertensive to 150's.
-Resume home losartan.
#Tachybrady syndrome
-S/P pacemaker.
-Site appears well healing.
Subjective/Interval History:
DATA:
Pericardiocentesis, 05/30/2023:
Conclusions:
1. Successful placement of a 6 Scottish pericardial drain via subxiphoid approach, yielding 875 mL of bloody pericardial fluid.
2. Pericardial fluid has been sent for laboratory analysis.
TTE, 05/30/2023:
CONCLUSIONS
Normal left ventricular size and systolic function.
No regional wall motion abnormalities are seen.
LV ejection fraction is 55-60% by visual assessment.
RV appears small and underfilled, with possible diastolic collapse, concerning
for possible early tamponade/tamponade.
Moderate to large pericardial effusion (2.2cm). Early tamponade.
IVC is mildly dilated at 2.5 cm with normal inspiratory collapse.
Compared to prior from May 26, 2023, RV appears smaller and underfilled
concerning for possible early tamponade/tamponade. The pericardial effusion is
larger on today's study.
Physical Exam
Vital Signs/Labs
Vital Signs
Temp Pulse Resp BP Pulse Ox
36.7 C 63 16 152/86 98
05/31/23 06:59 05/31/23 06:59 05/31/23 06:59 05/31/23 04:50 05/31/23 06:59
05/29/23 05/30/23 05/31/23
11:59 11:59 11:59
Actual Weight 87.6 kg
05/31/23 05:09
05/31/23 05:09
05/30/23
12:14
Oyf-K-Orbxaxbaefl Pept 2190
LAB Results
05/30/23
12:14
Troponin I 0.019
Physical Exam
Constitutional: No acute distress and Comfortable
EENT: Anicteric and Moist mucous membranes
Cardiovascular: Pedal edema is absent, JVD pressure is normal, Rhythm/rate is irregular, S1S2 is normal and Murmur/rub/gallop absent
Respiratory: Respiratory effort normal, Lungs clear to auscul., Wheeze Absent, Crackles Absent and Rhonchi Absent
GI: Soft, Distention absent, Flat, Non tender and Normal bowel sounds
Neuro/Psych: AO x 3
Other: Other (Subxyphoid pericardial drain site is C/D/I.)
Data Reviewed
-
Date of Service: May 31, 2023
Medical Decision Making: Reviewed Test Results, Independent Historian Assessment, Test Interpretation and Review of Case with other Provider
EKG: Tracing Personally Visualized and interpreted and Report Reviewed by me
Echo: Tracing Personally Visualized and interpreted and Report Reviewed by me
X-Ray/CT/US/MRI/NUC/PET: Image Personally Visualized and interpreted and Report Reviewed by me
Medical Tests (PFT, Pathology etc): Image Personally Visualized and interpreted and Report Reviewed by me
Labs: Labs Reviewed by me
--- NOTE | 2023-05-31 09:50 | CM ---
Reviewed chart. Met with Mr. Harrison to review discharge plans. He states prior to admission he resides with his spouse in a two story home with two steps to enter. He states he has a full flight of steps to get to bedroom/full bathroom. He
states he has a powder room on the first floor. He states prior to admission he was independent with ambulation and adls. He states he has a stair glide that is for his spouse, but recently hehas been using it to get to the second floor. He
states he has a stair glide at home. He states he has a prescription plan with [employer] and use [facility]. Medical work-up in progress. The discharge plan is to return home withh is spouse when medically stable.
[2023-05-31] MEDS: COZAAR 100 MG PO (09:53)
[2023-05-31] MEDS: PROTONIX 40 MG PO ×2 (09:53→19:22)
[2023-05-31] MEDS: COLCHICINE 0.599999999999999978 MG PO ×2 (09:53→19:22)
[2023-05-31] MEDS: MOTRIN 600 MG PO ×3 (09:53→22:31)
[2023-05-31 11:23] VITALS: BP 144/84
[2023-05-31 13:20] VITALS: BMI 27.4
[2023-05-31 15:22] VITALS: BP 167/84
--- NOTE | 2023-05-31 16:04 | W.PN.HOSP.TC ---
Today's Communication/Plan
-
Continue to monitor drain output and vitals
Continue NSAID and Colchicine
Await fluid studies
Assessment / Plan
Assessment / Plan
Physical Exam
Constitutional: No acute distress
HEENT: Normocephalic and Moist mucous membranes
Cardiovascular: S1 and S2. Irregular rhythm.
Respiratory: Clear to Auscultation Bilaterally
GI: Soft, and Nontender. Normal bowel sounds
Neuro/Psych: AAO x 3
Assessment/Plan
#Shortness of Breath
#Pericardial Effusion
-chest x ray Small bilateral pleural effusions. Left lower lobe airspace disease may also be present.Moderate cardiomegaly. Mild central pulmonary vascular congestion.
-ECHO as per outreach and education social worker's report:
Normal left ventricular size and systolic function.
No regional wall motion abnormalities are seen.
LV ejection fraction is 55-60% by visual assessment.
RV appears small and underfilled, with possible diastolic collapse, concerning
for possible early tamponade/tamponade.
Moderate to large pericardial effusion (2.2cm). Early tamponade.
IVC is mildly dilated at 2.5 cm with normal inspiratory collapse.
Compared to prior from May 26, 2023, RV appears smaller and underfilled
concerning for possible early tamponade/tamponade. The pericardial effusion is
larger on today's study.
-Continue to hold Eliquis due to the bloody pericardial effusion -- will check with cardiology when it is safe to resume anticoagulation
-Continue colchicine and ibuprofen
-Monitor CBC
-Patient had pericardiocentesis on May 31, 2023: 875 cc of bloody pericardial fluid removed: follow-up on studies
-Cardiology consulted, recommendations appreciated
-Repeat echocardiogram when pericardial drain output decreases sufficiently and if echo shows no pericardial effusion, then drain can be taken out
#anemia of chronic disease
-Hgb stable
-no active bleeding
-Ferrous sulfate continued
#PAF
-EKG with paced rhythm occasional PVCs
-rate is controlled
-Eliquis held for above
-Pacemaker in place
#Tachycardia-Bradycardia Syndrome
-S/P pacemaker.
-Site appears well healing.
#Hypertension
-elevated in ED
-Losartan continued
# GERD
-Omeprazole continued
#DVT prophylaxis
-scd
#CODE status
-Full Code
Anticipated Discharge: > 48 hours
Subjective/Interval History
-
Date of Service: May 31, 2023
Patient was seen and examined. He reported feeling okay while lying in bed, denied any active chest pain or shortness of breath.
Objective Data
-
Labs:
Laboratory Results
05/31/23
05:09
WBC 6.1
Hgb 8.9 L
Hct 27.3 L
Plt Count 277
Sodium 136
Potassium 4.3
Chloride 108 H
Carbon Dioxide 21 L
BUN 19
Creatinine 0.8
Glucose 99
Calcium 8.7
Vital Signs:
Vital Signs
Temp Pulse Resp BP Pulse Ox
98.2 F 71 18 144/84 98
05/31/23 15:55 05/31/23 14:00 05/31/23 15:55 05/31/23 11:23 05/31/23 15:55
I&O
05/30/23 05/31/23 06/01/23
06:59 06:59 06:59
Intake Total 480 / 480
Output Total 810 / 810
Balance -330 / -330
--- NOTE | 2023-05-31 18:33 | PTCARENOTE ---
received patient this am, monitor shows V paced, patient is able to ambulate in hallway, patient stated to me that he feels less SOB although my legs are so weak. patient is concerned with his low H/H and wanted to know why he is not receiving
blood. patient plans on asking doctor in am. patient has pericardial drain intact, dsg. D/I, serosanguineous fluid noted on drain, nothing has drained since 0600 this am, will document.
[2023-05-31 19:22] VITALS: BP 124/86
[2023-05-31] MEDS: BenGay-Like 1 APPLIC TOPICAL (23:04)
[2023-05-31 23:05] VITALS: BP 152/94
--- NOTE | 2023-05-31 23:46 | PTCARENOTE ---
Pt rec'd at change of shift awake,alert. Pericardial drain in place, drsg dry and intact. cream applied to thighs after pt c/o soreness b/l thighs only.
DEHYDRATOR TENDER on telemetry.
[2023-06-01 04:44] VITALS: BP 136/85
[2023-06-01 05:24] LABS: Hematocrit 27.3 % (39.0-52.0); Hemoglobin 8.9 g/dL (13.0-18.0); Mean Corp Hgb Conc. 32.6 g/dL (33.0-37.0); Mean Corpuscular Hgb 27.5 pg (27.0-31.0); Mean Corpuscular Volume 84.3 fL (80.0-94.0); Mean Platelet Volume 9.8 fL (7.4-10.4); Platelet Count 309 10^3/uL (130-400); Red Blood Cell Count 3.24 10^6/uL (4.70-6.10); Red Cell Dist. Width 14.2 % (11.5-14.5); White Blood Cell Count 6.3 10^3/uL (4.8-10.8)
--- NOTE | 2023-06-01 05:30 | PTCARENOTE ---
Pt awoken for am VS and labs. no output noted overnight from pericardial drain. Pt passed moderate formed brown bm and completed adls in BR.
Pt then went out for a walk in hallway. made several laps and stated he felt good. GOVERNMENT AUDITOR on telemetry
[2023-06-01 05:45] LABS: Blood Urea Nitrogen 25 mg/dl (9-20); Calcium 8.7 mg/dl (8.4-10.2); Carbon Dioxide 22 mmol/L (22-30); Chloride 105 mmol/L (98-107); Estimated Creatinine Clearance 60 ml/min; Glucose 112 mg/dl (70-99); Potassium 4.3 mmol/L (3.5-5.1); Sodium 135 mmol/L (135-145); eGFR > 60.00
[2023-06-01 07:58] VITALS: BP 134/83
--- NOTE | 2023-06-01 08:45 | W.PN.CD ---
Addendum entered and electronically signed by Andre Barron MD 06/01/23 10:48:
-
-
Pericardial drain and sheath removed by me.
Plan Echo 06/01 and 06/02 in AM.
If does well then home 06/02 with echo in 7-10 days (or sooner if symptoms warrant)
If effusion recurs than atrial lead will be repositioned with CT surgery back up.
-
-
Original Note:
Today's Communication / Plan
-
For echo
If no effusion then pull drain
Serial echo's over next few days/weeks
If effusion recurs atrial lead will be repositioned (RV lead in septum and much less likely to be culprit of effusion)
Impression / Plan
-
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
have a large, symptomatic pericardial effusion.
Pericardial effusion:
-S/P pericardiocentesis 05/31/2023 via subxiphoid approach for 875 mL of bloody fluid.
-Effusion resolved.
-Continue colchicine and ibuprofen.
-Monitor drain output => none in last 15 hours => for echo now. Drain to be pulled if echo clear of effusion
-If effusion recurs I (Anderson) will favor repositioning of atrial lead
#PAF
-Currently in AF.
-Rate controlled without medication.
-CHADS2-Vasc = 3 (HTN, Age x2).
-Apixaban on hold for bloody pericardial effusion.
#HTN
-Chronic, stable.
-Hypertensive to 150's.
-Resumed home losartan.
#Bradycardia/pacemaker
-S/P pacemaker for second degree heart block (not sinus node dysfunction)
-Site appears well healing.
-If effusion recurs I (Anderson) will favor repositioning of atrial lead
Subjective/Interval History:
No CP. Feels well.
DATA:
Pericardiocentesis, 05/30/2023:
Conclusions:
1. Successful placement of a 6 Cuban pericardial drain via subxiphoid approach, yielding 875 mL of bloody pericardial fluid.
2. Pericardial fluid has been sent for laboratory analysis.
TTE, 05/30/2023:
CONCLUSIONS
Normal left ventricular size and systolic function.
No regional wall motion abnormalities are seen.
LV ejection fraction is 55-60% by visual assessment.
RV appears small and underfilled, with possible diastolic collapse, concerning
for possible early tamponade/tamponade.
Moderate to large pericardial effusion (2.2cm). Early tamponade.
IVC is mildly dilated at 2.5 cm with normal inspiratory collapse.
Compared to prior from May 26, 2023, RV appears smaller and underfilled
concerning for possible early tamponade/tamponade. The pericardial effusion is
larger on today's study.
Physical Exam
Vital Signs/Labs
Vital Signs
Temp Pulse Resp BP Pulse Ox
97.5 F 74 20 136/85 97
06/01/23 04:42 06/01/23 06:00 06/01/23 04:42 06/01/23 04:44 06/01/23 04:42
05/31/23 06/01/23 06/02/23
06:59 06:59 06:59
Actual Weight 87.6 kg 84 kg
06/01/23 04:57
06/01/23 04:57
05/30/23
12:14
Yio-H-Qjdzzgrfpyu Pept 2190
LAB Results
05/30/23
12:14
Troponin I 0.019
Physical Exam
Constitutional: No acute distress
EENT: Anicteric
Cardiovascular: Rhythm/rate is irregular and S1S2 is normal
Respiratory: Respiratory effort normal and Lungs clear to auscul.
GI: Soft and Distention absent
Neuro/Psych: AO x 3
Data Reviewed
-
Date of Service: June 01, 2023
[2023-06-01] MEDS: COZAAR 100 MG PO (09:00)
[2023-06-01] MEDS: MOTRIN 600 MG PO ×3 (09:23→22:47)
[2023-06-01] MEDS: PROTONIX 40 MG PO ×2 (09:23→19:46)
[2023-06-01] MEDS: COLCHICINE 0.599999999999999978 MG PO ×2 (09:23→19:46)
[2023-06-01] MEDS: FEOSOL PO (09:24)
--- NOTE | 2023-06-01 10:59 | PTCARENOTE ---
kin drain d/c at bedside by Dr Barron. Patient tolerated well and resting comfortably in bed.
[2023-06-01 12:48] VITALS: BP 143/93
--- NOTE | 2023-06-01 13:33 | W.PN.HOSP.TC ---
Today's Communication/Plan
-
Repeat echo daily for the next 2 days
Continue Colchicine and Ibuprofen
Assessment / Plan
Assessment / Plan
Physical Exam
Constitutional: No acute distress
HEENT: Normocephalic and Moist mucous membranes
Cardiovascular: S1 and S2. Irregular rhythm.
Respiratory: Clear to Auscultation Bilaterally
GI: Soft, and Nontender. Normal bowel sounds
Neuro/Psych: AAO x 3
Assessment/Plan
#Shortness of Breath
#Pericardial Effusion
-chest x ray Small bilateral pleural effusions. Left lower lobe airspace disease may also be present.Moderate cardiomegaly. Mild central pulmonary vascular congestion.
-ECHO as per tube splicer's report:
Normal left ventricular size and systolic function.
No regional wall motion abnormalities are seen.
LV ejection fraction is 55-60% by visual assessment.
RV appears small and underfilled, with possible diastolic collapse, concerning
for possible early tamponade/tamponade.
Moderate to large pericardial effusion (2.2cm). Early tamponade.
IVC is mildly dilated at 2.5 cm with normal inspiratory collapse.
Compared to prior from May 26, 2023, RV appears smaller and underfilled
concerning for possible early tamponade/tamponade. The pericardial effusion is
larger on today's study.
-Continue to hold Eliquis due to the bloody pericardial effusion -- discussed this with cardiology
-Continue colchicine and ibuprofen
-Monitor CBC
-Patient had pericardiocentesis on May 31, 2023: 875 cc of bloody pericardial fluid removed: follow-up on studies
-Cardiology consulted, recommendations appreciated
-Repeat echocardiogram done --> drain taken out --> another repeat echocardiogram tomorrow (per cardiology Echo for 06/01 and 06/02 in AM and if all good then discharge home on 06/02 with echo in 7-10 days (or sooner if patient has symptoms)
-If the pericardial effusion returns, then Dr. Barron will favor repositioning the lead
#anemia of chronic disease
-Hgb stable
-no active bleeding
-Ferrous sulfate continued
#PAF
-CHADSVASC 3
-EKG with paced rhythm occasional PVCs
-rate is controlled
-Eliquis held for above
-Pacemaker in place
#Tachycardia-Bradycardia Syndrome
-S/P pacemaker.
-Site appears well healing.
#Hypertension
-elevated in ED
-Losartan continued
# GERD
-Omeprazole continued
#DVT prophylaxis
-SCDs
#CODE status
-Full Code
Anticipated Discharge: > 48 hours
Subjective/Interval History
-
Date of Service: June 01, 2023
Patient was seen and examined. He reported no chest or shortness of breath. His drain was taken out today.
Objective Data
-
Labs:
Laboratory Results
06/01/23
04:57
WBC 6.3
Hgb 8.9 L
Hct 27.3 L
Plt Count 309
Sodium 135
Potassium 4.3
Chloride 105
Carbon Dioxide 22
BUN 25 H
Creatinine 1.0
Glucose 112 H
Calcium 8.7
Vital Signs:
Vital Signs
Temp Pulse Resp BP Pulse Ox
97.6 F 64 18 134/83 97
06/01/23 12:50 06/01/23 09:00 06/01/23 12:50 06/01/23 09:00 06/01/23 12:50
I&O
05/31/23 06/01/23 06/02/23
06:59 06:59 06:59
Intake Total 480 / 480 480 / 480 240 / 240
Output Total 810 / 810 600 / 600
Balance -330 / -330 -120 / -120 240 / 240
[2023-06-01 15:49] VITALS: BP 123/79
[2023-06-01 19:36] VITALS: BP 125/86
[2023-06-01 22:45] VITALS: BP 119/81
--- NOTE | 2023-06-01 23:55 | PTCARENOTE ---
Pt received at start of shift, HR V-paced. Pt in bed, appears unphased by being back in hospital. Pt states 'well damn if i'm here i'm here, but I won't leave this time until it's 100% that i'm fixed'. Educated pt on plan of care, pt states no
questions at this time. Pt aware of NPO status at 0000. Pt later OOB briskly walking in the halls. Pt denies any pain, SOB, or lightheadedness/dizziness at this time. Informed to notify RN if any changes, call cook within reach.
[2023-06-02] VITALS (7 sets, daily range): BP systolic 146–171; BP diastolic 87–111; BMI 27.5
[2023-06-02 04:16] LABS: Hematocrit 27.9 % (39.0-52.0); Hemoglobin 9.2 g/dL (13.0-18.0); Mean Corpuscular Hgb 27.4 pg (27.0-31.0); Mean Platelet Volume 9.6 fL (7.4-10.4); Platelet Count 366 10^3/uL (130-400); Red Blood Cell Count 3.36 10^6/uL (4.70-6.10); Red Cell Dist. Width 14.4 % (11.5-14.5); White Blood Cell Count 6.1 10^3/uL (4.8-10.8)
[2023-06-02 04:40] LABS: Blood Urea Nitrogen 20 mg/dl (9-20); Calcium 8.7 mg/dl (8.4-10.2); Carbon Dioxide 22 mmol/L (22-30); Chloride 108 mmol/L (98-107); Estimated Creatinine Clearance 60 ml/min; Glucose 87 mg/dl (70-99); Potassium 4.4 mmol/L (3.5-5.1); Sodium 136 mmol/L (135-145); eGFR > 60.00
[2023-06-02] MEDS: COLCHICINE 0.599999999999999978 MG PO ×2 (08:44→20:16)
[2023-06-02] MEDS: PROTONIX 40 MG PO ×2 (08:44→20:16)
[2023-06-02] MEDS: MOTRIN 600 MG PO ×3 (08:45→22:38)
[2023-06-02] MEDS: COZAAR 100 MG PO (08:45)
--- NOTE | 2023-06-02 09:40 | W.PN.CD ---
Today's Communication / Plan
-
Continue colchicine and ibuprofen
EP plan reviewed
-Plan Echo today and again 06/02 in AM.
-If does well then home 06/02 with echo in 7-10 days (or sooner if symptoms warrant)
-If effusion recurs than atrial lead will be repositioned with CT surgery back up.
Impression / Plan
-
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
have a large, symptomatic pericardial effusion.
Pericardial effusion:
-S/P pericardiocentesis 05/31/2023 via subxiphoid approach for 875 mL of bloody fluid.
-Effusion resolved and drain pulled 05/31
-Continue colchicine and ibuprofen.
-EP plan reviewed:
-Plan Echo today and again 06/02 in AM.
-If does well then home 06/02 with echo in 7-10 days (or sooner if symptoms warrant)
-If effusion recurs than atrial lead will be repositioned with CT surgery back up.
#PAF
-Currently in AF.
-Rate controlled without medication.
-CHADS2-Vasc = 3 (HTN, Age x2).
-Apixaban on hold for bloody pericardial effusion.
#HTN
-Chronic, stable.
-Hypertensive to 150's.
-Resumed home losartan.
#Bradycardia/pacemaker
-S/P pacemaker for second degree heart block (not sinus node dysfunction)
-plan as above
Subjective/Interval History:
He denies CP. Some fatigue. Has been walking hallways without issue.
DATA:
Pericardiocentesis, 05/30/2023:
Conclusions:
1. Successful placement of a 6 Welsh pericardial drain via subxiphoid approach, yielding 875 mL of bloody pericardial fluid.
2. Pericardial fluid has been sent for laboratory analysis.
TTE, 05/30/2023:
CONCLUSIONS
Normal left ventricular size and systolic function.
No regional wall motion abnormalities are seen.
LV ejection fraction is 55-60% by visual assessment.
RV appears small and underfilled, with possible diastolic collapse, concerning
for possible early tamponade/tamponade.
Moderate to large pericardial effusion (2.2cm). Early tamponade.
IVC is mildly dilated at 2.5 cm with normal inspiratory collapse.
Compared to prior from May 26, 2023, RV appears smaller and underfilled
concerning for possible early tamponade/tamponade. The pericardial effusion is
larger on today's study.
Physical Exam
Vital Signs/Labs
Vital Signs
Temp Pulse Resp BP Pulse Ox
98.1 F 71 20 171/99 98
06/02/23 07:18 06/02/23 08:00 06/02/23 07:18 06/02/23 07:21 06/02/23 08:51
06/01/23 06/02/23 06/03/23
06:59 06:59 06:59
Actual Weight 84 kg 84.4 kg
06/02/23 03:40
06/02/23 03:40
05/30/23
12:14
[id number] Pept 2190
LAB Results
05/30/23
12:14
Troponin I 0.019
Physical Exam
Constitutional: No acute distress and Comfortable
EENT: Moist mucous membranes
Cardiovascular: Pedal edema is absent, JVD pressure is normal, Systolic murmur absent and Rhythm/rate is irregular
Respiratory: Respiratory effort normal, Lungs clear to auscul. and Wheeze Absent
GI: Soft, Distention absent and Flat
Neuro/Psych: AO x 3
Data Reviewed
-
Date of Service: June 02, 2023
EKG: Other (Tele: A fib, V paced, PVC's)
Labs: Labs Reviewed by me
--- NOTE | 2023-06-02 09:54 | W.PN.UPDATE ---
Update Note
Progress Note Update
echo shows very minimal/trivial effusion; stable from yesterday
will make NPO again for tomorrow AM, with plans for repeat echo
--- NOTE | 2023-06-02 09:58 | CM ---
Reviewed chart. Met with Mr. Harrison to review discharge plans. He states he is feeling well. Prior to admission he resides with his spouse in a two story home with two steps to enter. He states he has a full flight of steps to get to
bedroom/full bathroom. He has a powder room on the first floor. He has a stair glide for his spouse but recently he has been using it. He has a prescription plan with [facility] and uses [facility]. Medical work-up in progress. The discharge
plan is to return home with his spouse when medically stable.
--- NOTE | 2023-06-02 14:05 | W.PN.HOSP.TC ---
Today's Communication/Plan
-
Anticipated discharge tomorrow if repeat echo looks good and patient's symptoms are controlled
Assessment / Plan
Assessment / Plan
Physical Exam
Constitutional: No acute distress
HEENT: Normocephalic and Moist mucous membranes
Cardiovascular: S1 and S2. Irregular rhythm.
Respiratory: Clear to Auscultation Bilaterally
GI: Soft, and Nontender. Normal bowel sounds
Neuro/Psych: AAO x 3
Assessment/Plan
#Shortness of Breath
#Pericardial Effusion
-chest x ray Small bilateral pleural effusions. Left lower lobe airspace disease may also be present.Moderate cardiomegaly. Mild central pulmonary vascular congestion.
-ECHO as per life skills instructor's report:
Normal left ventricular size and systolic function.
No regional wall motion abnormalities are seen.
LV ejection fraction is 55-60% by visual assessment.
RV appears small and underfilled, with possible diastolic collapse, concerning
for possible early tamponade/tamponade.
Moderate to large pericardial effusion (2.2cm). Early tamponade.
IVC is mildly dilated at 2.5 cm with normal inspiratory collapse.
Compared to prior from May 26, 2023, RV appears smaller and underfilled
concerning for possible early tamponade/tamponade. The pericardial effusion is
larger on today's study.
-Continue to hold Eliquis due to the bloody pericardial effusion -- discussed this with cardiology
-Continue colchicine and ibuprofen
-Monitor CBC
-Patient had pericardiocentesis on May 31, 2023: 875 cc of bloody pericardial fluid removed: follow-up on studies
-Cardiology consulted, recommendations appreciated
-Repeat echocardiogram done --> drain taken out on June 01, 2023 --> echo on 06/02/23 stable -->another repeat echocardiogram tomorrow (per cardiology Echo for 06/02 in AM and if all good then discharge home on 06/02 with echo in 7-10 days (or sooner
if patient has symptoms)
-If the pericardial effusion returns, then Dr. Barron will favor repositioning the atrial lead
#anemia of chronic disease
-Hgb stable
-no active bleeding
-Ferrous sulfate continued
#PAF
-CHADSVASC 3
-EKG with paced rhythm occasional PVCs
-rate is controlled
-Eliquis held for above
-Pacemaker in place
#Tachycardia-Bradycardia Syndrome
-S/P pacemaker.
-Site appears well healing.
#Hypertension
-elevated in ED
-Losartan continued
# GERD
-Omeprazole continued
#DVT prophylaxis
-SCDs
#CODE status
-Full Code
Anticipated Discharge: Within 24 hours
Subjective/Interval History
-
Date of Service: June 02, 2023
Patient was seen and examined. He reported some generalized weakness this morning, but is able to get up out of bed. Denied any chest pain or shortness of breath.
Objective Data
-
Labs:
Laboratory Results
06/02/23
03:40
WBC 6.1
Hgb 9.2 L
Hct 27.9 L
Plt Count 366
Sodium 136
Potassium 4.4
Chloride 108 H
Carbon Dioxide 22
BUN 20
Creatinine 1.0
Glucose 87
Calcium 8.7
Vital Signs:
Vital Signs
Temp Pulse Resp BP Pulse Ox
98.5 F 62 20 152/89 98
06/02/23 11:54 06/02/23 12:00 06/02/23 11:54 06/02/23 11:56 06/02/23 11:56
I&O
06/01/23 06/02/23 06/03/23
06:59 06:59 06:59
Intake Total 480 / 480 960 / 960 240 / 240
Output Total 600 / 600
Balance -120 / -120 960 / 960 240 / 240
--- NOTE | 2023-06-02 18:30 | PTCARENOTE ---
Pt had ECHO this morning reviewed by physician. Pt denies any discomfort. Plan to keep pt NPO after midnight tonight and repeat ECHO on 06/02. Pt up walking around unit. Telemetry shows vent.paced rhythm with occasional PVC's.
--- NOTE | 2023-06-02 20:28 | PTCARENOTE ---
Pt received at start of shift, HR v-paced w/ PVCs. Pt OOB doing brisk laps around the unit. Once back in bed, discussed plan of care with pt. Pt states no questions at this time. Low sternal dressing CDI. Pt denies any SOB, CP, or
lightheadedness/dizziness at this time. Informed to notify RN if any changes, call cook within reach.
[2023-06-03 04:38] VITALS: BP 166/99
[2023-06-03 04:41] VITALS: BP 149/91
[2023-06-03 05:07] LABS: Hematocrit 26.7 % (39.0-52.0); Hemoglobin 8.6 g/dL (13.0-18.0); Mean Corp Hgb Conc. 32.2 g/dL (33.0-37.0); Mean Corpuscular Volume 83.7 fL (80.0-94.0); Mean Platelet Volume 9.2 fL (7.4-10.4); Platelet Count 321 10^3/uL (130-400); Red Blood Cell Count 3.19 10^6/uL (4.70-6.10); Red Cell Dist. Width 14.2 % (11.5-14.5); White Blood Cell Count 5.3 10^3/uL (4.8-10.8)
[2023-06-03 05:36] LABS: Blood Urea Nitrogen 19 mg/dl (9-20); Carbon Dioxide 24 mmol/L (22-30); Chloride 104 mmol/L (98-107); Estimated Creatinine Clearance 54 ml/min; Glucose 90 mg/dl (70-99); Potassium 4.4 mmol/L (3.5-5.1); Sodium 136 mmol/L (135-145); eGFR > 60.00
[2023-06-03 06:00] VITALS: BMI 27.4
[2023-06-03 07:28] VITALS: BP 166/103
[2023-06-03 07:29] VITALS: BP 160/94
--- NOTE | 2023-06-03 07:32 | W.PN.CD ---
Today's Communication / Plan
-
Assuming this morning's echo is stable, discharge.
Outpatient echo in one week.
Impression / Plan
-
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
have a large, symptomatic pericardial effusion.
Pericardial effusion:
-S/P pericardiocentesis 05/31/2023 via subxiphoid approach for 875 mL of bloody fluid.
-Effusion resolved and drain pulled 05/31
-Continue colchicine and ibuprofen.
-Plethora or echoes reviewed. No recurrence of effusion. Limited echo performed again this morning.
-Assuming this morning's echo is stable, discharge.
#PAF
-Currently in AF.
-Rate controlled without medication.
-CHADS2-Vasc = 3 (HTN, Age x2).
-Apixaban on hold for bloody pericardial effusion. Restart as an outpatient at EP's discretion.
#HTN
-Chronic, stable.
-Hypertensive to 150's.
-Resumed home losartan.
#Bradycardia/pacemaker
-S/P pacemaker for second degree heart block (not sinus node dysfunction)
-Serial echoes of the course of the next few days/weeks. Atrial lead repositioning if any effusion recurrence.
Subjective/Interval History:
No acute events.
He continues to do well.
DATA:
Pericardiocentesis, 05/30/2023:
Conclusions:
1. Successful placement of a 6 [place] pericardial drain via subxiphoid approach, yielding 875 mL of bloody pericardial fluid.
2. Pericardial fluid has been sent for laboratory analysis.
TTE, 05/30/2023:
CONCLUSIONS
Normal left ventricular size and systolic function.
No regional wall motion abnormalities are seen.
LV ejection fraction is 55-60% by visual assessment.
RV appears small and underfilled, with possible diastolic collapse, concerning
for possible early tamponade/tamponade.
Moderate to large pericardial effusion (2.2cm). Early tamponade.
IVC is mildly dilated at 2.5 cm with normal inspiratory collapse.
Compared to prior from May 26, 2023, RV appears smaller and underfilled
concerning for possible early tamponade/tamponade. The pericardial effusion is
larger on today's study.
Physical Exam
Vital Signs/Labs
Vital Signs
Temp Pulse Resp BP Pulse Ox
36.6 C 71 20 146/92 99
06/03/23 07:26 06/02/23 22:42 06/03/23 07:26 06/02/23 22:42 06/03/23 07:26
06/01/23 06/02/23 06/03/23
11:59 11:59 11:59
Actual Weight 84 kg 84.4 kg
06/03/23 04:54
06/03/23 04:54
05/30/23
12:14
[id number] Pept 2190
Physical Exam
Constitutional: No acute distress and Comfortable
EENT: Anicteric and Moist mucous membranes
Cardiovascular: Rhythm & rate is regular, Pedal edema is absent, JVD pressure is normal, S1S2 is normal and Murmur/rub/gallop absent
Respiratory: Respiratory effort normal, Lungs clear to auscul., Wheeze Absent, Crackles Absent and Rhonchi Absent
GI: Soft, Distention absent, Flat, Non tender and Normal bowel sounds
Neuro/Psych: AO x 3
Data Reviewed
-
Date of Service: June 03, 2023
Medical Decision Making: Reviewed Test Results, Independent Historian Assessment and Test Interpretation
EKG: Tracing Personally Visualized and interpreted and Report Reviewed by me
Echo: Tracing Personally Visualized and interpreted and Report Reviewed by me
X-Ray/CT/US/MRI/NUC/PET: Image Personally Visualized and interpreted and Report Reviewed by me
Medical Tests (PFT, Pathology etc): Image Personally Visualized and interpreted and Report Reviewed by me
Labs: Labs Reviewed by me
[2023-06-03] MEDS: COZAAR 100 MG PO (07:53)
[2023-06-03] MEDS: PROTONIX 40 MG PO (07:53)
[2023-06-03] MEDS: COLCHICINE 0.599999999999999978 MG PO (07:53)
[2023-06-03] MEDS: MOTRIN 600 MG PO (07:54)
[2023-06-03] MEDS: FEOSOL 325 MG PO (09:08)
--- NOTE | 2023-06-03 11:22 | CM ---
Reviewed chart. Met with Mr. Harrison to review discharge plans. He states he maybe able to go home soon if his ECHO is stable. Prior to admission he resides with his spouse in a two story home with two steps to enter. . He has a full flight of
steps to get to bedroom/full bathroom. He has a powder room on the first floor. Prior to admission he was independent with ambulation and adls. He does not have any DME in the home. He has a prescription plan with [employer] and uses [facility]. Medical work-up in progress. The discharge plan is to return home with his spouse whren medically stable.
[2023-06-03 11:30] VITALS: BP 149/75
--- NOTE | 2023-06-03 11:43 | W.PN.HOSP.TC ---
Today's Communication/Plan
-
Discharge today
Assessment / Plan
Assessment / Plan
Physical Exam
Constitutional: No acute distress
HEENT: Normocephalic and Moist mucous membranes
Cardiovascular: S1 and S2. Irregular rhythm.
Respiratory: Clear to Auscultation Bilaterally
GI: Soft, and Nontender. Normal bowel sounds
Neuro/Psych: AAO x 3
Assessment/Plan
#Shortness of Breath
#Pericardial Effusion
-chest x ray Small bilateral pleural effusions. Left lower lobe airspace disease may also be present.Moderate cardiomegaly. Mild central pulmonary vascular congestion.
-ECHO as per photographer news's report:
Normal left ventricular size and systolic function.
No regional wall motion abnormalities are seen.
LV ejection fraction is 55-60% by visual assessment.
RV appears small and underfilled, with possible diastolic collapse, concerning
for possible early tamponade/tamponade.
Moderate to large pericardial effusion (2.2cm). Early tamponade.
IVC is mildly dilated at 2.5 cm with normal inspiratory collapse.
Compared to prior from May 26, 2023, RV appears smaller and underfilled
concerning for possible early tamponade/tamponade. The pericardial effusion is
larger on today's study.
-Continue to hold Eliquis due to the bloody pericardial effusion -- discussed this with cardiology
-Continue colchicine and ibuprofen
-Monitor CBC
-Patient had pericardiocentesis on May 31, 2023: 875 cc of bloody pericardial fluid removed: follow-up on studies
-Cardiology consulted, recommendations appreciated
-Repeat echocardiogram done --> drain taken out on June 01, 2023 --> echo on 06/02/23 stable -->another repeat echocardiogram today is stable/okay
-If the pericardial effusion returns, then Dr. Barron will favor repositioning the atrial lead
#anemia of chronic disease
-Hgb stable
-no active bleeding
-Ferrous sulfate continued
#PAF
-CHADSVASC 3
-EKG with paced rhythm occasional PVCs
-rate is controlled
-Eliquis held for above -- restart outpatient
-Pacemaker in place
#Tachycardia-Bradycardia Syndrome
-S/P pacemaker.
-Site appears well healing.
#Hypertension
-elevated in ED
-Losartan continued
# GERD
-Omeprazole continued
#DVT prophylaxis
-SCDs
#CODE status
-Full Code
More than 30 minutes spent in discharge including
Final examination of the patient
Summarizing hospital stay
Instructions for continuing care to all relevant caregivers
Preparation of discharge records, prescriptions, and referral forms
Total time spent (in minutes): 37
Anticipated Discharge: Today
Subjective/Interval History
-
Date of Service: June 03, 2023
Patient was seen and examined. He denied chest pain, shortness of breath, dizziness of any other complaints.
Objective Data
-
Labs:
Laboratory Results
06/03/23
04:54
WBC 5.3
Hgb 8.6 L
Hct 26.7 L
Plt Count 321
Sodium 136
Potassium 4.4
Chloride 104
Carbon Dioxide 24
BUN 19
Creatinine 1.1
Glucose 90
Calcium 9.0
Vital Signs:
Vital Signs
Temp Pulse Resp BP Pulse Ox
98.1 F 65 18 160/94 98
06/03/23 11:42 06/03/23 07:29 06/03/23 11:42 06/03/23 07:29 06/03/23 11:42
I&O
06/02/23 06/03/23 06/04/23
06:59 06:59 06:59
Intake Total 960 / 960 720 / 720
Balance 870 / 149 265 / 029
--- NOTE | 2023-06-03 12:02 | W.DS.TRANS ---
DC Summary - Experimental Psychologist
-
Discharge Instructions:
Sleep Apnea Risk Intermediate
Discharge Diagnosis/Procedures #Shortness of Breath
#Pericardial Effusion
#Anemia of chronic disease
#Atrial Fibrillation
#Tachycardia-Bradycardia Syndrome status post
pacemaker
#Hypertension
#Gastroesophageal Reflux Disease
Diet As tolerated
Activity As tolerated
Others Tests Follow up echocardiogram in one week. Please
call to schedule.
Specialty Instructions Weigh Daily
Instructions:
Stand-Alone Forms:
Changes to Home Medications: No
Discharge Medications:
DC Medications w/original date entered in [facility] [employer] [facility]
omeprazole 20 mg-sodium bicarbonate 1.1 gram capsule (Zegerid OTC) 1 cap PO BID Gastrointestinal issue 07/09/22
losartan 100 mg tablet 100 mg PO DAILY Blood Pressure 05/02/23
itaumaqq-qj-zwfnm 300 mcg-K 60 mcg-lycop 600 mcg-lutein 300 mcg tablet (Centrum Silver Men) 1 tab PO DAILY Supplement 05/02/23
colchicine 0.6 mg tablet 0.6 mg PO BID #60 tabs 05/04/23
ibuprofen 600 mg tablet 600 mg PO TID #42 tabs 05/04/23
ferrous sulfate 325 mg (65 mg iron) tablet 325 mg PO MOWEFR Supplement 05/30/23
Home Medication Changes
Pending Results: Yes
Additional Pending Results:
Pericardial Fluid Studies
Total time spent discharging patient (in min): 37
--- NOTE | 2023-06-03 13:12 | SUR.OPER ---
Echo done. Pt seen by Kolton and Abdoul. Pt walked up and down 2 flights of stairs with slight SOB which resolved within 1 minute. Telemetry and IV device removed. Discharge instructions reviewed with pt regarding wound care, medications and
their possible side effects, activity guidelines, reporting cares and concerns and follow up appt's. Very good understanding verbalized. Pt escorted out via wheelchair and discharged to home.
--- NOTE | 2023-06-09 08:57 | W.DCSUMMARY ---
Discharge Summary
Discharge Data
Date of Admission: 05/30/23
Date of Discharge: 06/03/23
Total time spent discharging patient (in min): 37
-
Pending Results: Yes
Additional Pending Results:
Pericardial Fluid Studies
Hospital Course
77-year-old male with history of atrial fibrillation with ablation, hypertension, pacemaker for with symptomatic bradycardia and 2nd degree AV block on 04/29/2023, GERD, and gastrointestinal bleeding, presented with progressively shortness of breath
for past few weeks. He was found to have pericardial effusion about a month prior to presentation, started on Ibuprofen 600 mg TID and Colchicine. He was doing fine, however his ibuprofen was discontinued on 05/19/23 and on the following day, he
started having shortness of breath again; he was restarted on ibuprofen and to slowly wean off but patient did not feel better at all. He also started having chest pains, weakness, nausea, and decreased appetite. Patient also complained of belching
after eating food. Chest x-ray with bilateral pleural effusion, moderate cardiomegaly and pulmonary vascular congestion. Echocardiogram showed as per registered nurse maternal child's report, moderate to large pericardial effusion -- there was concern for possible
early tamponade/tamponade. Patient had a pericardiocentesis performed on May 30, 2023 and had a successful placement of a 6 [place] pericardial drain via subxiphoid approach, with 875 mL of bloody pericardial fluid being produced. Patient was
continued on Colchicine and Ibuprofen. Given patient's bloody pericardial effusion, Eliquis was held. Patient's pericardial drain was removed on June 01, 2023. The plan going forward was that if patient's pericardial effusion re-occurred, then
atrial lead would have to be repositioned with CT surgery back up. Patient's echocardiogram on the day of discharge showed trivial pericardial effusion and he was okay for discharge.
Discharge Plan
-
Patient Disposition: Home (Routine Discharge)
Discharge Diagnosis/Procedures: #Shortness of Breath
#Pericardial Effusion
#Anemia of chronic disease
#Atrial Fibrillation
#Tachycardia-Bradycardia Syndrome status post pacemaker
#Hypertension
#Gastroesophageal Reflux Disease
Condition: Good
Diet: As tolerated
Activity: As tolerated
Others Tests: Follow up echocardiogram in one week. Please call to schedule.
Specialty Instructions: Weigh Daily- Call MD for wt gain/loss 3 lbs overnight/5 lbs in 1 week
Activity Restrictions/Additional Instructions:
Talk to your registered nurse maternal child in the next 2 to 3 days regarding when you should continue taking Eliquis.
Referrals:
Nils Fair MD [Active] - 06/15/23 11:20 am
Isrrael Rizzo DO [Family Provider] - in three to four days
Prescriptions:
Continued
omeprazole-sodium bicarbonate [Zegerid OTC] 20-1.1 mg-gram Capsule
1 cap PO BID
losartan 100 mg Tablet
100 mg PO DAILY
Centrum Silver Men 510-30-106-300 mcg Tablet
1 tab PO DAILY
ibuprofen 600 mg Tablet
600 mg PO TID Qty: 42 0RF
colchicine 0.6 mg Tablet
0.6 mg PO BID Qty: 60 2RF
ferrous sulfate 325 mg (65 mg iron) Tablet
325 mg PO MOWEFR
Discharge Orders:
Discharge Patient (As Directed); Ordered 06/03/23
Ordered By: Khalif Tobar
Care Plan Goals
Care Plan Goals:
Problem: Readiness for enhanced knowledge related to diagnosis and treatment plan
Goal: Understand your diagnosis and treatment plan needs, including medications if applicable.
Instructions: Know your diagnosis, underlying causes and treatment plan options, including medications if applicable. Consult with your health care team to learn about your diagnosis and treatment plan, including medications if applicable.
Discharge Date and Time
Discharge Date/Time: 06/03/23 13:24
Print Language: SWEDISH
== END 2023-06-03 13:24 | disposition home or self-care (01) | DRG 315 ==
LOC: IVU 16:25
PROVIDERS: Internal Medicine Cardiovascular Disease; Registered Nurse; ADMITTING PHYSICIAN Hospitalist; EMERGENCY PHYSICIAN Emergency Medicine; FAMILY PHYSICIAN Family Medicine; OTHER PHYSICIAN Internal Medicine Cardiovascular Disease
PROC: 0W9D30Z Drainage of Pericardial Cavity with Drainage Device, Percutaneous Approach (ICD-10-PCS; 2023-05-30)
DX: I31.39 Other pericardial effusion (noninflammatory) (principal); D68.32 Hemorrhagic disorder due to extrinsic circulating anticoagulants; J90 Pleural effusion, not elsewhere classified; I48.0 Paroxysmal atrial fibrillation; I11.9 Hypertensive heart disease without heart failure; D63.8 Anemia in other chronic diseases classified elsewhere; N40.0 Benign prostatic hyperplasia without lower urinary tract symptoms; I31.4 Cardiac tamponade; I49.3 Ventricular premature depolarization; D50.9 Iron deficiency anemia, unspecified; R09.89 Other specified symptoms and signs involving the circulatory and respiratory systems; E78.5 Hyperlipidemia, unspecified; K21.9 Gastro-esophageal reflux disease without esophagitis; I49.5 Sick sinus syndrome; Z96.653 Presence of artificial knee joint, bilateral; Z95.0 Presence of cardiac pacemaker; Z87.891 Personal history of nicotine dependence; Z86.010 Personal history of colon polyps; Z87.19 Personal history of other diseases of the digestive system; Z85.828 Personal history of other malignant neoplasm of skin
CPT/HCPCS: 88305; 93308; 33016; 71046; 80048; 80053; 82945; 83615; 83880; 84157; 84484; 85014; 85025; 85027; 86850; 86900; 86901; 87015; 87070; 87102; 87116; 87205; 87206; 88112; 89051; 93005; 93321; 93325; 99285; C1894

== ENCOUNTER → 2023-06-09 14:32 | Outpatient (REF) | payer MEDICARE, BC, SELFPAY | LOC: RCS 14:32 | PROVIDERS: ATTENDING PHYSICIAN Internal Medicine; FAMILY PHYSICIAN Family Medicine | DX: I31.39 Other pericardial effusion (noninflammatory) (principal) | CPT/HCPCS: 93308; 93321; 93325 ==

== ENCOUNTER 2023-06-10 16:44 | Emergency (ER) | payer MEDICARE, BC, SELFPAY ==
[2023-06-10 16:50] VITALS: BP 156/74
--- NOTE | 2023-06-10 18:19 | EDRN ---
Dr. Yi in room w/ pt at this time.
[2023-06-10 18:22] VITALS: BP 149/92
--- NOTE | 2023-06-10 18:30 | ED.GENMED ---
History of Present Illness
General
Chief Complaint: Chest Pain
Source: patient
Exam Limitations: none
Time Seen by Provider: 06/10/23 18:10
Travel History
Have you had any contact with someone who has COVID-19?: No
Do you have any symptoms of coronavirus? Fever > 100 degrees, chills, cough, shortness of breath, sore throat, loss of taste or smell, muscle aches, or headache?: No
History of Present Illness
History of Present Illness:
See MDM
Past History
Past History
ED Past Medical History: Arrthythmia (atrial fibrillation), GERD and HTN
ED Past Surgical History: Cardiac (Cardioversion, pacemaker 04/29/23) and Other (Colonoscopy)
Patient has exhibited threatening behavior?: No
Social History
Tobacco: Former smoker
Alcohol: Daily
Drug: None
Personal:
Living: with family
Phy Exam
Physical Exam
Physical Exam:
See MDM
Scores
Heart Score for Chest Pain Patients
STEMI patient?: No
History: Slightly or Non-Suspicious
ECG: Normal
Age: >/= 65 years
Risk Factors: 1 or 2 Risk Factors
Troponin: </= Normal Limit
Heart Score for Chest Pain Patients: 3
Heart Score Risk: 2.5% MACE over next 6 weeks
Course
Orders/Labs/Results
Orders:
Orders
06/10/23 16:45
Electrocardiogram (*1) Urgent
Reason for Study: Chest Pain
EKG- Treatment ONCE
06/10/23 18:28
CR Chest - 2 Views Urgent
Comment: recent pericardial effusion requring drain
Reason For Exam: intermittent SOB
06/10/23 18:32
Complete Blood Count/With Diff Urgent
Comprehensive Metabolic Panel Urgent
Lipase Urgent
Troponin I Urgent
Abnormal Lab Results
06/10/23
18:32
RBC 3.70 L 10^6/uL
(4.70-6.10)
Hgb 9.6 L g/dL
(13.0-18.0)
Hct 30.8 L %
(39.0-52.0)
MCH 25.9 L pg
(27.0-31.0)
MCHC 31.2 L g/dL
(33.0-37.0)
RDW 15.0 H %
(11.5-14.5)
Lymphocytes % 18.1 L %
(20.5-51.1)
BUN 22 H mg/dl
(9-20)
06/10/23 18:32
06/10/23 18:32
Vital Signs
Initial and Last Documented VS:
Initial Vital Signs
Temp Pulse Resp BP Pulse Ox
98.3 F 61 16 156/74 98
06/10/23 16:50 06/10/23 16:50 06/10/23 16:50 06/10/23 16:50 06/10/23 16:50
Last Documented Vital Signs
Temp Pulse Resp BP Pulse Ox
98.3 F 69 21 149/92 97
06/10/23 16:50 06/10/23 18:23 06/10/23 18:23 06/10/23 18:22 06/10/23 18:23
MDM/Problems Addressed
Differential Diagnosis Includes:
HPI and MDM Narrative:
77-year-old male presenting for evaluation of generalized fatigue, muscle aches and indigestion. This is also associated with mild shortness of breath. All symptoms have since resolved. Patient believes he is having side effects of colchicine.
Patient was placed on colchicine a few weeks ago when he was diagnosed with large pericardial effusion. Patient states he recently had the drain removed and had an echo yesterday which showed drastically improved pericardial effusion. Patient
states he talked to his electronics scale tester who sent him in for evaluation
On exam, patient states all symptoms resolved. He believes this could be a side effect of colchicine. His electronics scale tester suggested that he decrease the dosing to once a day instead of twice a day. He did not take his nighttime dose and states he is
already feeling better. Given his history, he was sent in regardless for evaluation
Physical exam
General: Well appearing and non-toxic
HEENT: protecting airway
Neck: appears supple
CV: No evidence of cyanosis. Regular rate and rhythm
Resp: No accessory muscle use. Lungs clear
Abd: Non-distended
Extremities: No deformities
Neuro: alert
Psych: Normal affect
Skin: Intact
Problems Addressed including Acute and Chronic Conditions affecting care:
1. Resolved shortness of breath
Acuity: acute
Prognosis: stable
Details: Lungs are clear. Will obtain chest x-ray. Given recent cardiac issues, will obtain basic blood work and troponin
Troponin at baseline. Chest x-ray clear. Patient feels comfortable going home
Updates
Differential Diagnosis (but not limited to): Adverse medication side effect, pericardial effusion, pleural effusion
Testing considered: D-dimer but no current clinical signs of PE
Drug therapy (if applicable): OTC meds, please see d/c instruction regarding Rx drugs
Amount and/or Complexity of Data Reviewed
Clinical info obtained from: Patient
External data reviewed: Recent history of pericardial effusion requiring drain. Echocardiogram yesterday shows improved pericardial effusion
Labs I independently reviewed (but not limited to): Hemoglobin baseline, troponin at baseline
Radiology: X-ray independently reviewed: Chest x-ray appears unchanged from prior
Pulse Ox: not hypoxic
EKG independently reviewed: Paced rhythm, normal axis, no STEMI
Sample Washer: Paced rhythm
Critical Care: N/A
Risk of Complication:
Social Determinants of health: Good social support
Discussed with other providers: Cardiology
Escalation of Care includes Admit/Obs: After being observed in the Emergency Department, pt stable for discharge.
Occasional wrong word or 'sound a like' substitutions may have occurred due to the inherent limitations of voice recognition software. Read the chart carefully and recognize, using context, where substitutions have occurred.
*Critical Care Note
Total Time (30-74mins, 75-104mins- exclusive of procedures): Not Applicable
ED Attending Note
-
Portions of this chart may have been created with voice recognition software.� Occasional wrong word or��sound alike� substitutions may have occurred due to the inherent limitations of voice recognition software.
Discharge Plan
Departure
Patient Disposition: Home (Routine Discharge)
Date of Disposition: 06/10/23
Time of Disposition: 20:20
Patient with high blood pressure during this ER visit?: Yes
Discharge Problem:
Adverse drug effect
Instructions: Side effects from medicines
Prescriptions:
No Action
omeprazole-sodium bicarbonate [Zegerid OTC] 20-1.1 mg-gram Capsule
1 cap PO BID
losartan 100 mg Tablet
100 mg PO DAILY
Centrum Silver Men [id number] mcg Tablet
1 tab PO DAILY
ibuprofen 600 mg Tablet
600 mg PO TID Qty: 42 0RF
colchicine 0.6 mg Tablet
0.6 mg PO BID Qty: 60 2RF
ferrous sulfate 325 mg (65 mg iron) Tablet
325 mg PO MOWEFR
Referrals:
Isrrael Rizzo DO [Family Provider] -
Activity Restrictions/Additional Instructions:
Please return for any worsening symptoms.
You may return at any time if you have further concerns.
Please call your electronics scale tester first thing Tuesday morning.
Thank you for choosing [facility].
Interventions
Interventions:
*Risk Screen - Suicide Last Done: 06/10/23 16:50
*General Assessment Last Done: 06/10/23 16:50
*Neglect/Abuse Screening Last Done: 06/10/23 16:50
ED- Fall Risk Assessment Last Done: 06/10/23 18:24
*ED COVID-19 Vaccine History Last Done: 06/10/23 18:24
ED- Cardiac Assessment Last Done: 06/10/23 18:37
Discharge Date and Time
Print Language: YAKUT
[2023-06-10 18:35] VITALS: BMI 27.0
[2023-06-10 18:52] LABS: % Basophils 0.7 % (0-2); % Eosinophils 2.1 % (0-6); % Immature Granulocytes 0.3 % (0-0.5); % Lymphocytes 18.1 % (20.5-51.1); % Monocytes 8.6 % (1.7-9.3); % Neutrophils 70.2 % (42.2-75.2); Absolute Basophils 0.1 10^3/uL (0-0.2); Absolute Eosinophils 0.2 10^3/uL (0-0.7); Absolute Lymphocytes 1.3 10^3/uL (1.2-3.4); Absolute Monocytes 0.6 10^3/uL (0.1-0.6); Hematocrit 30.8 % (39.0-52.0); Hemoglobin 9.6 g/dL (13.0-18.0); Mean Corp Hgb Conc. 31.2 g/dL (33.0-37.0); Mean Corpuscular Hgb 25.9 pg (27.0-31.0); Mean Corpuscular Volume 83.2 fL (80.0-94.0); Mean Platelet Volume 9.4 fL (7.4-10.4); Nucleated Red Blood Cells % 0 % (-); Platelet Count 318 10^3/uL (130-400); White Blood Cell Count 7.1 10^3/uL (4.8-10.8)
[2023-06-10 19:00] VITALS: BP 152/91
[2023-06-10 19:07] LABS: ALT (SGPT) 22 U/L (0-50); AST (SGOT) 27 U/L (17-59); Albumin 4.1 g/dl (3.5-5.0); Alkaline Phosphatase 116 U/L (38-126); Blood Urea Nitrogen 22 mg/dl (9-20); Calcium 9.4 mg/dl (8.4-10.2); Carbon Dioxide 27 mmol/L (22-30); Chloride 106 mmol/L (98-107); Estimated Creatinine Clearance 60 ml/min; Glucose 91 mg/dl (70-99); Lipase 158 U/L (23-300); Potassium 4.6 mmol/L (3.5-5.1); Sodium 138 mmol/L (135-145); Total Bilirubin 0.7 mg/dl (0.2-1.3); Total Protein 6.7 g/dl (6.3-8.2); eGFR > 60.00
[2023-06-10 19:17] LABS: Troponin I 0.028 ng/ml
[2023-06-10 20:00] VITALS: BP 149/87
== END 2023-06-10 20:46 | disposition home or self-care (01) ==
LOC: EMR 16:44
PROVIDERS: EMERGENCY PHYSICIAN Student in an Organized Health Care Education/Training Program; FAMILY PHYSICIAN Family Medicine
DX: T50.905A Adverse effect of unspecified drugs, medicaments and biological substances, initial encounter (principal); J90 Pleural effusion, not elsewhere classified; I10 Essential (primary) hypertension; Z87.891 Personal history of nicotine dependence
CPT/HCPCS: 99285; 71046; 80053; 83690; 84484; 85025; 93005

== ENCOUNTER → 2023-07-15 11:00 | Outpatient (REF) | payer MEDICARE, BC, SELFPAY | LOC: RCS 11:00 | PROVIDERS: ATTENDING PHYSICIAN Internal Medicine; FAMILY PHYSICIAN Family Medicine | DX: I31.39 Other pericardial effusion (noninflammatory) (principal); I48.19 Other persistent atrial fibrillation; I10 Essential (primary) hypertension | CPT/HCPCS: 93308; 93321; 93325 ==

== ENCOUNTER 2023-07-27 06:23 | Inpatient (IN) | payer MEDICARE, BC, SELFPAY ==
[2023-07-26 17:47] VITALS: BP 181/111
[2023-07-26 18:16] LABS: % Basophils 0.9 % (0-2); % Eosinophils 3.4 % (0-6); % Immature Granulocytes 0.3 % (0-0.5); % Lymphocytes 20.2 % (20.5-51.1); % Monocytes 8.2 % (1.7-9.3); Absolute Basophils 0.1 10^3/uL (0-0.2); Absolute Eosinophils 0.2 10^3/uL (0-0.7); Absolute Lymphocytes 1.4 10^3/uL (1.2-3.4); Absolute Monocytes 0.6 10^3/uL (0.1-0.6); Absolute Neutrophils 4.6 10^3/uL (1.4-6.5); Hematocrit 33.4 % (39.0-52.0); Hemoglobin 10.5 g/dL (13.0-18.0); Mean Corp Hgb Conc. 31.4 g/dL (33.0-37.0); Mean Corpuscular Hgb 23.3 pg (27.0-31.0); Mean Corpuscular Volume 74.2 fL (80.0-94.0); Mean Platelet Volume 8.6 fL (7.4-10.4); Nucleated Red Blood Cells % 0 % (-); Platelet Count 335 10^3/uL (130-400); Red Cell Dist. Width 17.7 % (11.5-14.5); White Blood Cell Count 6.8 10^3/uL (4.8-10.8)
[2023-07-26 18:29] LABS: ALT (SGPT) 20 U/L (0-50); AST (SGOT) 29 U/L (17-59); Albumin 4.2 g/dl (3.5-5.0); Alkaline Phosphatase 121 U/L (38-126); Blood Urea Nitrogen 20 mg/dl (9-20); Calcium 9.8 mg/dl (8.4-10.2); Carbon Dioxide 25 mmol/L (22-30); Chloride 105 mmol/L (98-107); Glucose 100 mg/dl (70-99); Sodium 138 mmol/L (135-145); Total Bilirubin 0.7 mg/dl (0.2-1.3); Total Protein 7.3 g/dl (6.3-8.2); eGFR > 60.00
[2023-07-26 18:38] LABS: NT-proBNP 2510 pg/ml
--- NOTE | 2023-07-26 22:43 | ED.GENMED ---
History of Present Illness
General
Chief Complaint: Breathing Problem
Source: patient, records, spouse and previous radiology exam
Exam Limitations: none
Time Seen by Provider: 07/26/23 22:27
Nursing documentation reviewed up to this point in time: agreed with
Travel History
Have you had any contact with someone who has COVID-19?: No
Do you have any symptoms of coronavirus? Fever > 100 degrees, chills, cough, shortness of breath, sore throat, loss of taste or smell, muscle aches, or headache?: No
History of Present Illness
History of Present Illness:
Patient very pleasant 78-year-old male presents with shortness of breath
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
pericardiocentesis assess progressive shortness of breath with exertion and at rest, no leg edema no hemoptysis no fevers had a chest x-ray today showed moderate effusion
Past History
Past History
ED Past Medical History: Arrthythmia (atrial fibrillation), GERD and HTN
ED Past Surgical History: Cardiac (Cardioversion, pacemaker 04/29/23) and Other (Colonoscopy)
Patient has exhibited threatening behavior?: No
Social History
Tobacco: Former smoker
Alcohol: Daily
Drug: None
Personal:
Living: with family
Employment: Retired
Review of Systems
Review of Systems
All Other Systems: Not applicable
Constitutional: Denies fever, fatigue or chills
EENT: Reports no symptoms
Respiratory: Reports trouble breathing; Denies cough or hemoptysis
Cardiac: Reports no symptoms
ABD/GI: Reports no symptoms
: Reports no symptoms
Musculoskeletal: Reports no symptoms
Skin: Reports no symptoms
Endocrine: Reports no symptoms
Hematologic/Lymphatic: Reports no symptoms
Phy Exam
Physical Exam
Physical Exam:
Physical Exam
General: no apparent distress, not acutely ill
Neck: No jaundice
Heart: s1/s2 regular rate and rhythm, no murmur. equal radial pulses.
Lungs: Diminished breath sounds on the left
Abdomen: Nontender
Neuro: alert and oriented. no focal neurological deficits
Skin: no rash
Psychiatric: well kept. interactive and cooperative
Extremities: no edema.
Scores
Heart Failure Risk
Heart Failure Risk Score: Not Applicable
Course
Orders/Labs/Results
Orders:
Orders
07/26/23 17:50
EKG [Electrocardiogram (*1)] Urgent
Reason for Study: Shortness of Breath
EKG- Treatment ONCE
07/26/23 18:09
CBC/With Diff [Complete Blood Count/With Diff] Urgent
CMP [Comprehensive Metabolic Panel] Urgent
Pro-BNP [NT-proBNP] Urgent
07/26/23 22:39
Furosemide [Lasix] 20 mg IV NOW STA
Abnormal Lab Results
07/26/23
18:09
RBC 4.50 L 10^6/uL
(4.70-6.10)
Hgb 10.5 L g/dL
(13.0-18.0)
Hct 33.4 L %
(39.0-52.0)
MCV 74.2 L fL
(80.0-94.0)
MCH 23.3 L pg
(27.0-31.0)
MCHC 31.4 L g/dL
(33.0-37.0)
RDW 17.7 H %
(11.5-14.5)
Lymphocytes % 20.2 L %
(20.5-51.1)
Glucose 100 H mg/dl
(70-99)
07/26/23 18:09
06/04/24 18:09
Vital Signs
Initial and Last Documented VS:
Initial Vital Signs
Temp Pulse Resp BP Pulse Ox
97.5 F 80 18 181/111 100
07/26/23 17:47 07/26/23 17:47 07/26/23 17:47 07/26/23 17:47 07/26/23 17:47
Last Documented Vital Signs
Temp Pulse Resp BP Pulse Ox
97.5 F 80 27 181/111 98
07/26/23 17:47 07/26/23 17:47 07/26/23 22:15 07/26/23 17:47 07/26/23 22:15
MDM/Problems Addressed
Differential Diagnosis Includes:
Heart failure pleural effusion less likely PE doubt pneumonia
MDM/Problems Addressed:
Shortness of breath
Chronic conditions affecting care:
PAF pericarditis pericardial
Acute Exacerbation and/or Progression of Chronic Illness:
PAF pericardial effusion
*Radiology
Radiology exam reviewed: radiology read reviewed
*Pulse Oximetry
Patient hypoxic: no
*EKG
Interpreted by ED Provider?: Yes
Interpretation: normal
Comparison EKG: no comparison EKG present
Heart Rate: 70
Rate: normal
Rhythm: ventricular paced
Ischemia: no ischemia
*Management Consultant Interpretation
Rate: normal
Interpretation: normal
Heart Rate: 70
Rhythm: ventricular paced
*Critical Care Note
Total Time (30-74mins, 75-104mins- exclusive of procedures): Not Applicable
Update Note
Update Note:
Patient overall is well compensated does have a moderate effusion is symptomatic will be admitted for facilitated workup prior echo noted
CHF proBNP noted we will give a small dose of diuretic
ED Attending Note
-
Portions of this chart may have been created with voice recognition software.� Occasional wrong word or��sound alike� substitutions may have occurred due to the inherent limitations of voice recognition software.
Discharge Plan
Departure
Patient Disposition: Admit
Date of Disposition: 07/26/23
Time of Disposition: 22:50
Presentation/result/management discussed w/ accepting /: Hospitalist
Patient with high blood pressure during this ER visit?: Yes
Condition: Good
Discharge Problem:
HTN (hypertension), Pleural effusion
Prescriptions:
No Action
omeprazole-sodium bicarbonate [Zegerid OTC] 20-1.1 mg-gram Capsule
1 cap PO BID
losartan 100 mg Tablet
100 mg PO DAILY
Centrum Silver Men [id number] mcg Tablet
1 tab PO DAILY
ibuprofen 600 mg Tablet
600 mg PO TID Qty: 42 0RF
colchicine 0.6 mg Tablet
0.6 mg PO BID Qty: 60 2RF
ferrous sulfate 325 mg (65 mg iron) Tablet
325 mg PO MOWEFR
Referrals:
Isrrael Rizzo DO [Family Provider] -
Discharge Date and Time
Print Language: WELSH
[2023-07-26] MEDS: LASIX 20 MG IV (23:06)
[2023-07-26 23:08] VITALS: BP 172/108
[2023-07-27] VITALS (16 sets, daily range): BP systolic 108–160; BP diastolic 54–99; BMI 26.1
--- NOTE | 2023-07-27 05:43 | HPS.HSE ---
Family Physician
-
Family Physician: Isrrael Rizzo
Chief Complaint
-
SOB
History of Present Illness
Patient is a 78y M with PMH significant for hypertension and paroxysmal A-Fib who presents to ED complaining of SOB and fatigue. Patient states that he has not felt well since having PPM implanted in April for second degree AV block. Patient
notes that he has since been readmitted for pericarditis, pericardial effusion, etc. He saw his PCP recently with complaints of persistent SOB and fatigue. A CXR was done 07/25 which showed new / large L pleural effusion and patient was referred to
the ED for evaluation.
Patient denies any chest pain at present. No cough, fevers / chills. He has GI upset including poor appetite, nausea and heartburn which he attributes to colchicine and NSAIDs that he took for pericarditis (now completed).
Medical History
Past Medical History
Past Medical History: Reports Other
Additional Past Medical History:
Iron deficiency anemia
Hypertension
Colon polyps
BPH
Paroxysmal A-fib
History of basal cell carcinoma
Hyperlipidemia
GI bleed
Diverticulosis
Angiodysplasia of cecum
Past Surgical History: Reports Other
Additional Past Surgical History:
Multiple cardioversion
Cardiac ablation
Bilateral knee replacement
PPM Placement (04/2023)
Pericardiocentesis (05/30/23)
Social History
Tobacco: Non-smoker
Alcohol: Occasional
Drug: None
Personal:
Living: With Family
Family History
Family History: Not pertinent
Allergies / Home Medications
Allergies reflects when Allergies were last updated in [facility] [employer].
Home Medications with original date entered in [facility] [employer]
Allergy/Medication List:
Allergies
Allergy/AdvReac Type Severity Reaction Status Date / Time
No Known Allergies Allergy Verified 07/26/23 17:49
Home Medications
omeprazole 20 mg-sodium bicarbonate 1.1 gram capsule (Zegerid OTC) 1 cap PO BID Gastrointestinal issue 07/09/22
losartan 100 mg tablet 100 mg PO DAILY Blood Pressure 05/02/23
fjtkzccy-tj-ulknj 300 mcg-K 60 mcg-lycop 600 mcg-lutein 300 mcg tablet (Centrum Silver Men) 1 tab PO DAILY Supplement 05/02/23
Review of Systems
-
History Source: Patient
A 12 point ROS was completed and negative except as noted: Yes
Constitutional: Reports Fatigue; Denies Fever or Chills
Respiratory: Reports Trouble Breathing; Denies Cough or Hemoptysis
Cardiac: Denies Chest Pain, Diaphoresis or Palpitations
Abdomen/GI: Reports Nausea and Anorexia; Denies Abdominal Pain
: Denies Dysuria or Frequency
Musculoskeletal: Denies Joint Pain or Edema
Neurological: Denies Dizzy or Headache
Psych: Denies Depression or Anxiety
Physical Exam
Vital Signs
Vital Signs
Temp Pulse Resp BP Pulse Ox
97.5 F 67 21 146/99 96
07/26/23 17:47 07/27/23 05:00 07/27/23 05:00 07/27/23 05:00 07/27/23 04:00
Physical Exam
General: Other (78y M in no acute distress.)
HEENT: Moist mucous membranes and PERRLA
Respiratory: Other (Decreased BS and dullness to percussion at the L base)
Cardiac: S1/S2, Regular Rhythm and Murmur (II/ KESHA)
GI: Soft, Non Tender, Non Distended and Normal Bowel Sounds
Musculoskeletal: No Clubbing, No Cyanosis and No Edema
Neuro: AO x 3
Laboratory Results
-
07/26/23 18:09
07/26/23 18:09
Laboratory Results
Total Bilirubin 0.7 mg/dl (0.2-1.3) 07/26/23 18:09
AST 29 U/L (17-59) 07/26/23 18:09
ALT 20 U/L (0-50) 07/26/23 18:09
Alkaline Phosphatase 121 U/L (38-126) 07/26/23 18:09
Impression/Plan
-
A/P: Patient is an 78y M with PMH significant for 2nd degree AV block s/p PPM placement in April 2023 who presents to ED complaining of SOB, fatigue and abnormal CXR.
Left Pleural Effusion
SOB, Fatigue
- Admit for further evaluation and treatment.
- Patient given initial dose of Lasix in the ED with good effect - though I do not believe he is intravascularly volume overloaded.
- Cardiology evaluation.
- IR evaluation for probable thoracentesis.
- ? repeat Echo. Prior discussions re: ? PPM revision given recurrent issues? - Defer to Cardiology.
Paroxysmal Atrial Fibrillation
- Paced rhythm at present.
- Patient is no longer on OAC following prior issues with GI blood loss / anemia as well as pericardial bleeding / effusion.
- Monitor on tele.
- Remain off of OAC for now.
Anemia of Chronic Disease / Blood Loss
- Stable Hgb somewhat improved from recent priors.
- Follow for changes in H&H.
- Remain off of OAC as noted above.
Benign Hypertension
- Stable. Continue losartan with holding parameters.
DVT Prophylaxis: SCDs
Code Status: Full
[2023-07-27] MEDS: PROTONIX 40 MG PO (07:26)
[2023-07-27] MEDS: COZAAR 100 MG PO (07:26)
--- NOTE | 2023-07-27 07:35 | CON.CAR ---
Consultation
Consultation Request
Date/Time Consultation Requested: 07/27/23
Date/Time Consultation Performed: 07/27/23
Requesting Provider: Dr. Silverio
Performing Provider: Dr Dimas (Dr Fair)
Medical History
-
History of Present Illness:
� 77 yo male with PMH of persistent A fib, which recurred s/p prior PVI and recent DCCV, second degree hb s/p MDT dual chamber PPM 05/30/23 c/b pericardial effusion while on eliquis, s/p pericardiocentesis 05/30/23, HTN, chronic anemia las t seen in
the office on 06/15/23 when h was having weakness and GI side effects of his colchicine. He was sent in by PCP for persistent sob and fatigue. CXR shows new large left pleural effusion.
Past Medical History
Past Medical History: Arrhythmias (chronic af), GERD, HTN and Other (Post ppm pericardial effusion, GI Bleeding and anemia, diverticulitis)
Social History
Tobacco: Non-Smoker
Alcohol: Daily
Drug: None
Family History
Family History: Reviewed & Not Pertinent
Allergies / Home Medications
Allergy/AdvReac Type Severity Reaction Status Date / Time
No Known Allergies Allergy Verified 07/26/23 17:49
�Medication �Instructions �Recorded �Confirmed �Type
omeprazole 20 mg-sodium 1 cap PO BID Gastrointestinal issue 07/09/22 07/26/23 History
bicarbonate 1.1 gram capsule
(Zegerid OTC)
losartan 100 mg tablet 100 mg PO DAILY Blood Pressure 05/02/23 07/26/23 History
ofmmftxk-uh-wgpob 300 mcg-K 60 1 tab PO DAILY Supplement 05/02/23 07/26/23 History
mcg-lycop 600 mcg-lutein 300 mcg
tablet (Centrum Silver Men)
Physical Exam
Vital Signs
Temp Pulse Resp BP Pulse Ox
97.5 F 60 22 156/96 96
07/26/23 17:47 07/27/23 07:26 07/27/23 06:00 07/27/23 07:26 07/27/23 04:00
Lab Results
07/26/23 18:09
07/26/23 18:09
Qml-K-Qefixfetjvn Pept 2510 pg/ml 07/26/23 18:09
Physical Exam
General: Well Developed, Well Nourished and No Apparent Distress
Respiratory: Clear and Other (decreased at the left side 2/3 of the down)
Cardiac: S1/S2, Regular Rhythm, Murmur (none) and JVD (none)
GI: Soft, Non Tender and Non Distended
Genito-urinary: No Costovertebral Tender
Musculoskeletal: No Clubbing, No Cyanosis and No Edema
Neuro: AO x 3
Impression / Plan
-
77 y/o male with PAF s/p ablation, HTN, tachy-joaquim syndrome s/p PPM (04/29/2023) with subsequent pericardial effusion treated with NSAIDS and colchicine(off for 10 days), admitted with worsening dyspnea and fatigue, found to have a large,
symptomatic pericardial effusion.
#Pleural effusion:
-he is no in heart failure otherwise and it is left sided
-May be inflammatory
-would tap and evaluate fluid
-CRP is still up, ?benefit of steroids but not ideal due to the intolerance of steriods. But our hand may be forced.
#chronic atrial fibrillation
-Currently in AF.
-Rate controlled without medication.
-CHADS2-Vasc = 3 (HTN, Age x2).
-Patient reports he d/w Dr Fair never to resume Apixaban
#anemia:
-improved
#s/p Pericardial effusion:
-heart size appears normal, will check a focused study
-stopped Ibuprofen and colchicine for GI side effect
#HTN
-Chronic
#2nd degree heart block s/p pacemaker 05/30/23
-S/P pacemaker for second degree heart block (not sinus node dysfunction)
-Serial echoes of the course of the next few days/weeks. Atrial lead repositioning if any effusion recurrence.
D/w Dr Silverio, suspect inflammatory cause of effusion, doesn't appear to be in heart failure, will update echo
DATA:
Pericardiocentesis, 05/30/2023:
Conclusions:
1. Successful placement of a 6 [place] pericardial drain via subxiphoid approach, yielding 875 mL of bloody pericardial fluid.
2. Pericardial fluid has been sent for laboratory analysis.
TTE, 05/30/2023:
CONCLUSIONS
Normal left ventricular size and systolic function.
No regional wall motion abnormalities are seen.
LV ejection fraction is 55-60% by visual assessment.
RV appears small and underfilled, with possible diastolic collapse, concerning
for possible early tamponade/tamponade.
Moderate to large pericardial effusion (2.2cm). Early tamponade.
IVC is mildly dilated at 2.5 cm with normal inspiratory collapse.
Compared to prior from May 26, 2023, RV appears smaller and underfilled
concerning for possible early tamponade/tamponade. The pericardial effusion is
larger on today's study.
Data Reviewed
-
EKG: Tracing Personally Visualized and interpreted (vpace with underlying rhythm of fib) and Other
Radiology: Image Personally Visualized and interpreted (normal heart size, pacer in place, large l pleural effusion)
Labs: Labs Reviewed by me (crp 16.9)
[2023-07-27 08:08] LABS: Erythrocyte Sed Rate 31 mm/hour (0-20)
[2023-07-27 08:12] LABS: Troponin I 0.022 ng/ml
[2023-07-27 08:33] LABS: TSH Reflex To Free T4 4.58 uIU/ml (0.47-4.68)
--- NOTE | 2023-07-27 09:06 | W.PN.HOSP.TC ---
Today's Communication/Plan
-
thoracentesis today--consult IR
anticipate d/c tomorrow
Assessment / Plan
Assessment / Plan
pt is an 78 year old male
Left Pleural Effusion with associated SOB, Fatigue--agree with cards this does not appear to be heart failure exacerbation--consult IR for thoracentesis, pleural fluid studies sent--apprec cards--anticipate home tomorrow
Paroxysmal Atrial Fibrillation--Paced rhythm at present--Patient is no longer on OAC following prior issues with GI blood loss/anemia as well as pericardial bleeding/effusion.
Anemia of Chronic Disease/Blood Loss--Stable Hgb somewhat improved from recent priors--Follow for changes in H&H--Remain off of OAC as noted above.
Essential Hypertension--Stable--Continue losartan with holding parameters.
DVT Prophylaxis: SCDs
Code Status: Full
Anticipated Discharge: Within 24 hours
Subjective/Interval History
-
Date of Service: July 27, 2023
pt does not feel well
spoke with Dr. Dimas re: plan
Objective Data
-
Vital Signs:
max temp for 24 hours
06/10/23
16:50
Temp 98.3 F
Laboratory Tests
07/27/23
07:33
ESR 31 H
C-Reactive Protein 16.90 H
Vital Signs
Temp Pulse Resp BP Pulse Ox
97.5 F 60 22 156/96 96
07/26/23 17:47 07/27/23 08:00 07/27/23 08:00 07/27/23 07:26 07/27/23 04:00
I&O
07/26/23 07/27/23 07/28/23
06:59 06:59 06:59
Output Total 2250 / 2250
Balance -2250 / -2250
Review of Systems
-
All other systems: Reviewed and negative
Physical Exam
-
General: Well Developed, Well Nourished and No Apparent Distress
HEENT: Normocephalic and Atraumatic; Negative Oxygen
Respiratory: Decreased Breath Sounds (left lung field)
Cardiac: Regular Rhythm and S1/S2; Negative Murmur
GI: Soft, Nontender, Nondistended and Normal Bowel Sounds
Musculoskeletal: No Clubbing, No Cyanosis and No Edema
Neuro: Awake and Alert
Psych: Calm
--- NOTE | 2023-07-27 09:06 | CM ---
Patient seen at bedside with physician. Patient states he is independent of ADL's and IADL's and does not have any DME other than his 's stair glide that he has been using. Patient PCP is Dr. Rizzo and he uses the [facility] in [address] in
[place]. Patient stated that he normally runs/walks 3 miles a day and would like to be considered for outpatient therapy/PT when discharged if appropriate. CM will continue to follow for discharge planning needs.
Plan; home with no needs vs outpatient PT
[2023-07-27 12:08] LABS: Body Fluid pH 7.45
[2023-07-27 12:48] LABS: Body Fluid Amylase 60 U/L; Body Fluid Glucose 108 mg/dl; Body Fluid LDH 159 U/L
[2023-07-27 13:16] LABS: Body Fluid Triglycerides < 30 mg/dl
[2023-07-27 14:03] LABS: Body Fluid Mononuclear 86.7 %; Body Fluid Polymorphonuclear 13.3 %; Body Fluid WBC 1869 /CUMM
[2023-07-27 14:06] LABS: Body Fluid Second Tech HB
[2023-07-27 19:31] LABS: Troponin I 0.024 ng/ml
[2023-07-27] MEDS: TORADOL 10 MG IV (20:00)
[2023-07-27 20:55] LABS: LDH 220 U/L (120-246)
[2023-07-28 03:25] VITALS: BP 138/70
[2023-07-28 06:00] VITALS: BMI 26.1
[2023-07-28 07:25] LABS: Hematocrit 33.7 % (39.0-52.0); Hemoglobin 10.6 g/dL (13.0-18.0); Mean Corp Hgb Conc. 31.5 g/dL (33.0-37.0); Mean Corpuscular Hgb 23.1 pg (27.0-31.0); Mean Corpuscular Volume 73.4 fL (80.0-94.0); Mean Platelet Volume 9.7 fL (7.4-10.4); Platelet Count 323 10^3/uL (130-400); Red Blood Cell Count 4.59 10^6/uL (4.70-6.10); Red Cell Dist. Width 17.8 % (11.5-14.5); White Blood Cell Count 7.2 10^3/uL (4.8-10.8)
[2023-07-28 07:43] LABS: Blood Urea Nitrogen 34 mg/dl (9-20); Calcium 9.1 mg/dl (8.4-10.2); Carbon Dioxide 23 mmol/L (22-30); Chloride 103 mmol/L (98-107); Estimated Creatinine Clearance 57 ml/min; Glucose 100 mg/dl (70-99); Potassium 4.6 mmol/L (3.5-5.1); Sodium 137 mmol/L (135-145); eGFR > 60.00
[2023-07-28] MEDS: COZAAR 100 MG PO (08:13)
[2023-07-28] MEDS: PROTONIX 40 MG PO (08:14)
[2023-07-28 08:20] VITALS: BP 133/79
--- NOTE | 2023-07-28 09:12 | W.PN.CD ---
Today's Communication / Plan
-
-Transthoracic echocardiogram yesterday revealed normal LVEF with a small posterior pericardial effusion; a large left pleural effusion was noted.
-Status-post left thoracentesis yesterday with removal of 1.5 L of fluid.
-No further cardiac recommendations at this time; outpatient follow-up with Cardiology.
Impression / Plan
-
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
symptomatic pericardial effusion.
#Pleural effusion:
-Transthoracic echocardiogram yesterday revealed normal LVEF with a small posterior pericardial effusion; a large left pleural effusion was noted.
-Status-post left thoracentesis yesterday with removal of 1.5 L of fluid.
#Chronic atrial fibrillation
-Currently in AF.
-Rate controlled without medication; intermittently V paced.
-CHADS2-Vasc = 3 (HTN, Age x2).
-Patient reports he d/w Dr Fair never to resume Apixaban, given recent pericardial effusion.
#anemia:
-improved
#s/p Pericardial effusion:
-Stable on echocardiogram yesterday.
-stopped Ibuprofen and colchicine for GI side effect
#HTN:
-Stable/controlled with current management.
#2nd degree heart block s/p pacemaker 05/30/23 -stable.
-S/P pacemaker for second degree heart block (not sinus node dysfunction)
DATA:
Pericardiocentesis, 05/30/2023:
Conclusions:
1. Successful placement of a 6 [place] pericardial drain via subxiphoid approach, yielding 875 mL of bloody pericardial fluid.
2. Pericardial fluid has been sent for laboratory analysis.
TTE, 05/30/2023:
CONCLUSIONS
Normal left ventricular size and systolic function.
No regional wall motion abnormalities are seen.
LV ejection fraction is 55-60% by visual assessment.
RV appears small and underfilled, with possible diastolic collapse, concerning
for possible early tamponade/tamponade.
Moderate to large pericardial effusion (2.2cm). Early tamponade.
IVC is mildly dilated at 2.5 cm with normal inspiratory collapse.
Compared to prior from May 26, 2023, RV appears smaller and underfilled
concerning for possible early tamponade/tamponade. The pericardial effusion is
larger on today's study.
Physical Exam
Vital Signs/Labs
Vital Signs
Temp Pulse Resp BP Pulse Ox
97.9 F 61 17 133/79 97
07/28/23 08:20 07/28/23 08:20 07/28/23 08:20 07/28/23 08:20 07/28/23 08:20
07/27/23 07/28/23 07/29/23
06:59 06:59 06:59
Actual Weight 77.791 kg
07/28/23 05:53
07/28/23 05:53
07/26/23
18:09
Ifc-K-Yofotafcrmo Pept 2510
LAB Results
07/27/23 07/27/23 07/27/23
07:33 13:56 18:59
Troponin I 0.022 0.020 0.024
Physical Exam
Constitutional: No acute distress and Comfortable
EENT: Anicteric
Cardiovascular: Rhythm & rate is regular, Pedal edema is absent, Systolic murmur absent and S1S2 is normal
Respiratory: Respiratory effort normal and Lungs clear to auscul.
GI: Soft
Neuro/Psych: AO x 3
Other: Skin (Warm, dry, intact)
Data Reviewed
-
Date of Service: July 28, 2023
EKG: Tracing Personally Visualized and interpreted (Telemetry: A-fib, intermittently V paced)
Medical Tests (PFT, Pathology etc): Discussed with Patient
Labs: Labs Reviewed by me
[2023-07-28 11:16] VITALS: BP 122/70
--- NOTE | 2023-07-28 11:44 | W.PN.HOSP.TC ---
Today's Communication/Plan
-
d/c
Assessment / Plan
Assessment / Plan
pt is an 78 year old male
Left Pleural Effusion with associated SOB, Fatigue--agree with cards this does not appear to be heart failure exacerbation--apprec IR for thoracentesis 1500mls removed, pleural fluid studies sent--apprec cards--home
Paroxysmal Atrial Fibrillation--Paced rhythm at present--Patient is no longer on OAC following prior issues with GI blood loss/anemia as well as pericardial bleeding/effusion.
Anemia of Chronic Disease/Blood Loss--Stable Hgb somewhat improved from recent priors--Follow for changes in H&H--Remain off of OAC as noted above.
Essential Hypertension--Stable--Continue losartan with holding parameters.
DVT Prophylaxis: SCDs
Code Status: Full
Anticipated Discharge: Today
Subjective/Interval History
-
Date of Service: July 28, 2023
pt ready for d/c
Objective Data
-
Labs:
Laboratory Results
07/28/23
05:53
WBC 7.2
Hgb 10.6 L
Hct 33.7 L
Plt Count 323
Sodium 137
Potassium 4.6
Chloride 103
Carbon Dioxide 23
BUN 34 H
Creatinine 1.0
Glucose 100 H
Calcium 9.1
Vital Signs:
max temp for 24 hours
07/27/23
23:36
Temp 98.3 F
Vital Signs
Temp Pulse Resp BP Pulse Ox
98.0 F 60 18 122/70 98
07/28/23 11:16 07/28/23 11:16 07/28/23 11:16 07/28/23 11:16 07/28/23 11:16
I&O
07/27/23 07/28/23 07/29/23
06:59 06:59 06:59
Intake Total 960 / 960
Output Total 0 / 0
Balance -2250 / -2250 960 / 960
Review of Systems
-
All other systems: Reviewed and negative
Physical Exam
-
General: Well Developed, Well Nourished and No Apparent Distress
HEENT: Normocephalic and Atraumatic
Respiratory: Clear to Auscultation; Negative Wheezes or Rhonchi
Cardiac: Regular Rhythm and S1/S2; Negative Murmur
GI: Soft, Nontender, Nondistended and Normal Bowel Sounds
Musculoskeletal: No Clubbing, No Cyanosis and No Edema
Neuro: Awake
Psych: Calm
--- NOTE | 2023-07-28 12:29 | CM ---
Patient seen at bedside with physician. Patient for discharge home today. Patient completed IMM and signed form placed on chart. Patient stated that he had called family and that he did not anticipate any needs. CM will continue to follow for
discharge planning needs.
Plan; home with no needs
--- NOTE | 2023-07-28 15:07 | PN.CDI ---
CDI
- -
CDI:
Physician Documentation Request
Admit Date: 07/27/23 06:23
Dear Doctor Nusrat,
Patient admitted for pleural effusion.
H&P and hospitalist progress notes report history of paroxysmal atrial fibrillation.
Cardiology consult reports states 'PMH of persistent A fib'
07/27 cardiology progress note refers to the atrial fibrillation as chronic 'currently in AF'
In an attempt to clarify potentially conflicting documentation, please clarify the type of atrial fibrillation:
Paroxysmal atrial fibrillation - terminates spontaneously or with intervention within 7 days of onset
Persistent atrial fibrillation - episodes of continuous AF that last more than 7 days and do not self-terminate
Permanent atrial fibrillation - when a decision has been made to accept the presence of AF and there is no further attempt to restore or maintain sinus rhythm
Other - please specify
Use of terms such as suspected, likely, concern for, or probable (associated with a specific diagnosis that is being evaluated, monitored, or treated as if it exists) are acceptable and can be coded in the inpatient setting, when documented at the
time of discharge.
Thank you,
Ally Lopez RN, BSN
CDI Specialist
tiger text
Please use your independent medical judgment in providing your response.
--- NOTE | 2023-07-29 07:04 | W.DCSUMMARY ---
Discharge Summary
Discharge Data
Date of Admission: 07/27/23
Date of Discharge: 07/28/23
-
Pending Results: Yes
Additional Pending Results:
Final results including pathology from pleural fluid
Hospital Course
Primary care physician : Isrrael Rizzo
Principal Discharge diagnosis : Left pleural effusion
Chronic Discharge diagnosis : Chronic atrial fibrillation (this has been documented as paroxysmal, persistent and previous notes however cardiology has deemed chronic atrial fibrillation), anemia of chronic disease, essential hypertension
Hospital Course : Patient was an 78-year-old male who presented complaining of shortness of breath and fatigue. He had a pacemaker implanted in April for second-degree AV block and stated he has not felt well since. He had been readmitted for
pericarditis, pericardial effusion and saw his PCP with these persistent complaints. Chest x-ray was done on July 26, 2023 which showed a new large left pleural effusion patient was referred to the ED. He denied chest pain, cough, fevers, chills.
He did have GI upset including poor appetite which she attributed to colchicine and nonsteroidals that he took for the pericarditis all of which is now completed. Patient was admitted.
Problem #1: Left pleural effusion. Patient was admitted and seen in consultation by cardiology. Plan was to have thoracentesis which she did have and 1500 mL were taken off by interventional radiology. At first glance, pleural fluid is exudative
consistent with leading theory of an inflammatory response secondary to the pacemaker placement. Final fluid results are pending at this time, including cytology. Patient feels markedly better and is stable for discharge at this time with
follow-up as indicated.
Problem #2: All other medical issues. These include Chronic atrial fibrillation (this has been documented as paroxysmal, persistent and previous notes however cardiology has deemed chronic atrial fibrillation), anemia of chronic disease, essential
hypertension. These medical issues were stable during his hospitalization. Medications were continued as able.
Patient is stable for discharge home at this time. If there are any questions regarding this dictation or his hospital stay, please not hesitate to call. Our office number is [phone].
Important imaging findings :
CHEST X-RAY IMPRESSION:
Moderate left pleural effusion. New.
Tiny right pleural effusion. Progressed.
Cardiomegaly. Stable
Procedure findings :
THORACENTESIS IMPRESSION: Successful ultrasound-guided thoracentesis, yielding 1500 cc of clear yellow pleural fluid.
Discharge Plan
-
Patient Disposition: Home (Routine Discharge)
Discharge Diagnosis/Procedures: Left pleural effusion likely inflammatory from pacemaker insertion, chronic atrial fibrillation, anemia of chronic disease, essential hypertension
Condition: Good
Diet: Low Cholesterol and 2 Gram Sodium
Activity: As tolerated
Driving Restrictions: As prior to admission
Bathing Restrictions: None
Specialty Instructions: Weigh Daily- Call MD for wt gain/loss 3 lbs overnight/5 lbs in 1 week
Referrals:
Micheal Plata MD [Active] - in one week (or usual dental instrument maker)
Isrrael Rizzo DO [Family Provider] - in less than 1 week
Prescriptions:
New
acetaminophen 325 mg Tablet
650 mg PO Q4HPRN PRN (Reason: Mild Pain / Temp > 101) Qty: 0 0RF
Continued
omeprazole-sodium bicarbonate [Zegerid OTC] 20-1.1 mg-gram Capsule
1 cap PO BID
losartan 100 mg Tablet
100 mg PO DAILY
Centrum Silver Men [id number] mcg Tablet
1 tab PO DAILY
Discharge Orders:
Discharge Patient (As Directed); Ordered 07/28/23
Ordered By: Rupa Silverio
Discharge Date and Time
Discharge Date/Time: 07/28/23 13:03
Print Language: EQUATORIAL GUINEAN
== END 2023-07-28 13:03 | disposition home or self-care (01) | DRG 187 ==
LOC: 3 WEST ACU 06:23
PROVIDERS: Radiology Vascular & Interventional Radiology; Student in an Organized Health Care Education/Training Program; ADMITTING PHYSICIAN Hospitalist; ATTENDING PHYSICIAN Internal Medicine; EMERGENCY PHYSICIAN Emergency Medicine; FAMILY PHYSICIAN Family Medicine; OTHER PHYSICIAN Internal Medicine Cardiovascular Disease
PROC: 0W9B3ZZ Drainage of Left Pleural Cavity, Percutaneous Approach (ICD-10-PCS; 2023-07-27)
DX: J90 Pleural effusion, not elsewhere classified (principal); I48.20 Chronic atrial fibrillation, unspecified; K21.9 Gastro-esophageal reflux disease without esophagitis; N40.0 Benign prostatic hyperplasia without lower urinary tract symptoms; I10 Essential (primary) hypertension; D50.0 Iron deficiency anemia secondary to blood loss (chronic); E78.5 Hyperlipidemia, unspecified; D63.8 Anemia in other chronic diseases classified elsewhere; Z96.653 Presence of artificial knee joint, bilateral; Z85.828 Personal history of other malignant neoplasm of skin; Z87.891 Personal history of nicotine dependence; Z95.0 Presence of cardiac pacemaker; Z86.010 Personal history of colon polyps; Z87.19 Personal history of other diseases of the digestive system
CPT/HCPCS: 88305; 93308; 32555; 71045; 71046; 80048; 80053; 82150; 82945; 83615; 83880; 83986; 84443; 84478; 84484; 85025; 85027; 85652; 86140; 87015; 87070; 87205; 88112; 88341; 88342; 89051; 93005; 93321; 93325

== ENCOUNTER → 2023-08-03 14:20 | Outpatient (REF) | payer MEDICARE, BC, SELFPAY | LOC: REG 14:20 | PROVIDERS: ATTENDING PHYSICIAN Obstetrics & Gynecology Reproductive Endocrinology; FAMILY PHYSICIAN Family Medicine | DX: J90 Pleural effusion, not elsewhere classified (principal); I31.39 Other pericardial effusion (noninflammatory); I10 Essential (primary) hypertension | CPT/HCPCS: 71046 ==

== ENCOUNTER → 2023-08-04 09:47 | Outpatient (REF) | payer MEDICARE, BC, SELFPAY | LOC: RAD 09:47 | PROVIDERS: ATTENDING PHYSICIAN Family Medicine | DX: K21.9 Gastro-esophageal reflux disease without esophagitis (principal) | CPT/HCPCS: 74246 ==

== ENCOUNTER → 2023-08-11 09:25 | Outpatient (REF) | payer MEDICARE, BC, SELFPAY ==
[2023-08-11 09:46] VITALS: BP 176/102; BP_SYST 80
[2023-08-11] MEDS: MOTRIN 600 MG PO (11:15)
[2023-08-11 12:58] LABS: Body Fluid Mononuclear 63.9 %; Body Fluid Polymorphonuclear 36.1 %; Body Fluid WBC 2059 /CUMM
[2023-08-11 13:22] LABS: Body Fluid Second Tech EF
== END ==
LOC: RADI 09:25
PROVIDERS: ATTENDING PHYSICIAN Nurse Practitioner; FAMILY PHYSICIAN Family Medicine
DX: J90 Pleural effusion, not elsewhere classified (principal); R06.00 Dyspnea, unspecified
CPT/HCPCS: 88305; 32555; 71045; 84157; 87015; 87070; 87205; 88112; 89051

== ENCOUNTER → 2023-08-19 08:40 | Outpatient (REF) | payer MEDICARE, BC, SELFPAY | LOC: REG 08:40 | PROVIDERS: ATTENDING PHYSICIAN Internal Medicine Critical Care Medicine; FAMILY PHYSICIAN Family Medicine | DX: J90 Pleural effusion, not elsewhere classified (principal) | CPT/HCPCS: 71046 ==

== ENCOUNTER → 2023-08-23 07:51 | Outpatient (REF) | payer MEDICARE, BC, SELFPAY ==
[2023-08-23 09:10] VITALS: BP 195/95; BP_SYST 59
[2023-08-23 10:00] VITALS: BP 170/96
== END ==
LOC: RADI 07:51
PROVIDERS: ATTENDING PHYSICIAN Internal Medicine Critical Care Medicine; FAMILY PHYSICIAN Family Medicine; REFERRING PHYSICIAN Internal Medicine
DX: J90 Pleural effusion, not elsewhere classified (principal)
CPT/HCPCS: 32555; 71045

== ENCOUNTER → 2023-09-05 09:04 | Outpatient (REF) | payer MEDICARE, BC, SELFPAY | LOC: RAD 09:04 | PROVIDERS: ATTENDING PHYSICIAN Internal Medicine Critical Care Medicine; FAMILY PHYSICIAN Family Medicine; REFERRING PHYSICIAN Internal Medicine | DX: J90 Pleural effusion, not elsewhere classified (principal) | CPT/HCPCS: 71046 ==

== ENCOUNTER → 2023-09-07 08:24 | Outpatient (REF) | payer MEDICARE, BC, SELFPAY ==
[2023-09-07 08:45] VITALS: BP 182/106; BP_SYST 67
[2023-09-07 09:35] VITALS: BP 187/96
[2023-09-07 10:03] LABS: Body Fluid pH 7.46
[2023-09-07 10:15] LABS: Body Fluid Glucose 113 mg/dl; Body Fluid LDH 142 U/L; Body Fluid Protein 3.9 g/dl
[2023-09-07 11:46] LABS: Body Fluid Mononuclear 86.7 %; Body Fluid Polymorphonuclear 13.3 %; Body Fluid WBC 925 /CUMM
[2023-09-07 11:58] LABS: Body Fluid Second Tech AMA
== END ==
LOC: RADI 08:24
PROVIDERS: ATTENDING PHYSICIAN Internal Medicine Critical Care Medicine; FAMILY PHYSICIAN Family Medicine
DX: J90 Pleural effusion, not elsewhere classified (principal)
CPT/HCPCS: 88305; 32555; 71045; 82945; 83615; 83986; 84157; 87015; 87070; 87102; 87116; 87205; 87206; 88112; 88341; 88342; 89051

== ENCOUNTER → 2023-09-08 14:19 | Outpatient (REF) | payer MEDICARE, BC, SELFPAY | LOC: HWRAD 14:19 | PROVIDERS: ATTENDING PHYSICIAN Internal Medicine Critical Care Medicine; FAMILY PHYSICIAN Family Medicine; REFERRING PHYSICIAN Internal Medicine | DX: J90 Pleural effusion, not elsewhere classified (principal) | CPT/HCPCS: 71250 ==

== ENCOUNTER → 2023-09-21 09:06 | Outpatient (REF) | payer MEDICARE, BC, SELFPAY ==
[2023-09-21 09:30] VITALS: BP 165/93; BP_SYST 79
[2023-09-21] MEDS: MOTRIN 600 MG PO (09:53)
[2023-09-21 10:15] VITALS: BP 165/93
== END ==
LOC: RADI 09:06
PROVIDERS: ATTENDING PHYSICIAN Internal Medicine Critical Care Medicine; FAMILY PHYSICIAN Family Medicine
DX: J90 Pleural effusion, not elsewhere classified (principal)
CPT/HCPCS: 32555; 71045

== ENCOUNTER → 2023-09-28 09:23 | Outpatient (REF) | payer MEDICARE, BC, SELFPAY ==
[2023-09-28 09:35] VITALS: BP 188/117; BP_SYST 80
[2023-09-28 09:53] VITALS: BP 188/117; BP_SYST 80
[2023-09-28] MEDS: MOTRIN 600 MG PO (09:59)
[2023-09-28 10:07] VITALS: BP 168/112
== END ==
LOC: RADI 09:23
PROVIDERS: ATTENDING PHYSICIAN Internal Medicine Critical Care Medicine; FAMILY PHYSICIAN Family Medicine; REFERRING PHYSICIAN Internal Medicine
DX: J90 Pleural effusion, not elsewhere classified (principal)
CPT/HCPCS: 88305; 32555; 71045; 88112

== ENCOUNTER → 2023-10-05 09:40 | Outpatient (REF) | payer MEDICARE, BC, SELFPAY ==
[2023-10-05 09:50] VITALS: BP 196/118; BP_SYST 83
[2023-10-05 10:36] VITALS: BP 187/75
[2023-10-05 10:40] LABS: Body Fluid pH 7.49
[2023-10-05 10:59] LABS: Body Fluid Polymorphonuclear 7.2 %; Body Fluid WBC 1740 /CUMM
[2023-10-05 11:00] LABS: Body Fluid Mononuclear 92.8 %
[2023-10-05 11:05] LABS: Body Fluid Second Tech RLT
[2023-10-05 11:09] LABS: Body Fluid Glucose 103 mg/dl; Body Fluid LDH 252 U/L; Body Fluid Protein 3.6 g/dl
== END ==
LOC: RADI 09:40
PROVIDERS: ATTENDING PHYSICIAN Internal Medicine Critical Care Medicine; FAMILY PHYSICIAN Family Medicine; OTHER PHYSICIAN Internal Medicine
DX: J90 Pleural effusion, not elsewhere classified (principal)
CPT/HCPCS: 88305; 32555; 71045; 82945; 83615; 83986; 84157; 87015; 87070; 87102; 87116; 87205; 87206; 88112; 89051

== ENCOUNTER → 2023-10-12 09:24 | Outpatient (REF) | payer MEDICARE, BC, SELFPAY ==
[2023-10-12 09:43] VITALS: BP 190/98; BP_SYST 79
[2023-10-12 10:30] VITALS: BP 180/92
== END ==
LOC: RADI 09:24
PROVIDERS: ATTENDING PHYSICIAN Internal Medicine Critical Care Medicine; FAMILY PHYSICIAN Family Medicine; REFERRING PHYSICIAN Internal Medicine
DX: J90 Pleural effusion, not elsewhere classified (principal)
CPT/HCPCS: 32555; 71045

== ENCOUNTER → 2023-10-18 07:04 | Outpatient (REF) | payer MEDICARE, BC, SELFPAY | LOC: HWRCS 07:04 | PROVIDERS: ATTENDING PHYSICIAN Family Medicine; OTHER PHYSICIAN Internal Medicine | DX: I31.39 Other pericardial effusion (noninflammatory) (principal) | CPT/HCPCS: 93306 ==

== ENCOUNTER → 2023-10-19 09:28 | Outpatient (REF) | payer MEDICARE, BC, SELFPAY ==
[2023-10-19 09:57] VITALS: BP 178/98; BP_SYST 58
[2023-10-19 10:35] VITALS: BP 189/90; BP_SYST 64
[2023-10-19] MEDS: MOTRIN 600 MG PO (10:41)
== END ==
LOC: RADI 09:28
PROVIDERS: ATTENDING PHYSICIAN Internal Medicine Critical Care Medicine; FAMILY PHYSICIAN Family Medicine; REFERRING PHYSICIAN Internal Medicine
DX: J90 Pleural effusion, not elsewhere classified (principal)
CPT/HCPCS: 32555; 71045

== ENCOUNTER → 2023-10-26 09:20 | Outpatient (REF) | payer MEDICARE, BC, SELFPAY ==
[2023-10-26 09:40] VITALS: BP 190/110; BP_SYST 61
[2023-10-26 10:15] VITALS: BP 192/98
[2023-10-26 10:37] LABS: Body Fluid WBC 895 /CUMM
[2023-10-26 10:38] LABS: Body Fluid Mononuclear 94.6 %; Body Fluid Polymorphonuclear 5.4 %
[2023-10-26 10:50] LABS: Body Fluid Glucose 105 mg/dl; Body Fluid LDH 180 U/L; Body Fluid Protein 3.5 g/dl
[2023-10-26 11:29] LABS: Body Fluid Second Tech RLT
== END ==
LOC: RADI 09:20
PROVIDERS: ATTENDING PHYSICIAN Internal Medicine Critical Care Medicine; FAMILY PHYSICIAN Family Medicine; REFERRING PHYSICIAN Internal Medicine
DX: J90 Pleural effusion, not elsewhere classified (principal)
CPT/HCPCS: 88305; 32555; 71045; 82945; 83615; 83986; 84157; 87015; 87070; 87102; 87116; 87205; 88112; 89051

== ENCOUNTER → 2023-11-02 08:46 | Outpatient (REF) | payer MEDICARE, BC, SELFPAY | LOC: RADI 08:46 | PROVIDERS: ATTENDING PHYSICIAN Internal Medicine Critical Care Medicine; FAMILY PHYSICIAN Family Medicine; REFERRING PHYSICIAN Internal Medicine | DX: J90 Pleural effusion, not elsewhere classified (principal) | CPT/HCPCS: 32555; 71045; 71250 ==

== ENCOUNTER → 2023-11-09 09:35 | Outpatient (REF) | payer MEDICARE, BC, SELFPAY ==
[2023-11-09 10:10] VITALS: BP 180/106; BP_SYST 68
[2023-11-09 10:10] LABS: % Eosinophils 5.1 % (0-6); % Immature Granulocytes 0.2 % (0-0.5); % Lymphocytes 19.8 % (20.5-51.1); % Neutrophils 65.9 % (42.2-75.2); Absolute Basophils 0.1 10^3/uL (0-0.2); Absolute Eosinophils 0.3 10^3/uL (0-0.7); Absolute Monocytes 0.4 10^3/uL (0.1-0.6); Absolute Neutrophils 3.4 10^3/uL (1.4-6.5); Hematocrit 41.1 % (39.0-52.0); Hemoglobin 13.6 g/dL (13.0-18.0); Mean Corp Hgb Conc. 33.1 g/dL (33.0-37.0); Mean Corpuscular Hgb 27.5 pg (27.0-31.0); Nucleated Red Blood Cells % 0 % (-); Platelet Count 241 10^3/uL (130-400); Red Blood Cell Count 4.95 10^6/uL (4.70-6.10); Red Cell Dist. Width 18.7 % (11.5-14.5); White Blood Cell Count 5.1 10^3/uL (4.8-10.8)
[2023-11-09 10:23] LABS: APTT 32.9 Sec (23.4-35.0); INR 1.01; PT 13.3 Sec (11.4-14.6)
[2023-11-09 11:42] LABS: ALT (SGPT) 24 U/L (0-50); AST (SGOT) 32 U/L (17-59); Albumin 4.6 g/dl (3.5-5.0); Alkaline Phosphatase 114 U/L (38-126); Blood Urea Nitrogen 19 mg/dl (9-20); Calcium 9.7 mg/dl (8.4-10.2); Carbon Dioxide 23 mmol/L (22-30); Chloride 106 mmol/L (98-107); Direct Bilirubin 0.3 mg/dl (0.0-0.4); Glucose 116 mg/dl (70-99); LDH 239 U/L (120-246); Sodium 142 mmol/L (135-145); Total Bilirubin 0.7 mg/dl (0.2-1.3); eGFR > 60.00
== END ==
LOC: REG 09:35
PROVIDERS: ATTENDING PHYSICIAN Internal Medicine Critical Care Medicine; FAMILY PHYSICIAN Family Medicine; OTHER PHYSICIAN Internal Medicine
DX: J90 Pleural effusion, not elsewhere classified (principal); Z79.01 Long term (current) use of anticoagulants
CPT/HCPCS: 88305; 32555; 36415; 71045; 80053; 82248; 83615; 85025; 85610; 85730; 88112

== ENCOUNTER → 2023-11-16 09:35 | Outpatient (REF) | payer MEDICARE, BC, SELFPAY ==
[2023-11-16 09:44] VITALS: BP 192/118; BP_SYST 53
[2023-11-16 10:20] VITALS: BP 145/87; BP_SYST 60
[2023-11-16 10:35] VITALS: BP 145/87
== END ==
LOC: RADI 09:35
PROVIDERS: ATTENDING PHYSICIAN Internal Medicine Critical Care Medicine; FAMILY PHYSICIAN Family Medicine; REFERRING PHYSICIAN Internal Medicine
DX: J90 Pleural effusion, not elsewhere classified (principal)
CPT/HCPCS: 88305; 32555; 71045; 88112

== ENCOUNTER → 2023-11-30 09:36 | Outpatient (REF) | payer MEDICARE, BC, SELFPAY ==
[2023-11-30 09:45] VITALS: BP 193/96; BP_SYST 61
[2023-11-30 10:10] VITALS: BP 163/99; BP_SYST 63
[2023-11-30 10:19] VITALS: BP 163/99
[2023-11-30 10:44] LABS: Body Fluid pH 7.44
[2023-11-30 11:15] LABS: Body Fluid WBC 713 /CUMM
[2023-11-30 11:17] LABS: Body Fluid Glucose 103 mg/dl; Body Fluid LDH 138 U/L; Body Fluid Protein 3.4 g/dl; Body Fluid Second Tech EM
== END ==
LOC: RADI 09:36
PROVIDERS: ATTENDING PHYSICIAN Internal Medicine Critical Care Medicine; FAMILY PHYSICIAN Family Medicine; REFERRING PHYSICIAN Internal Medicine
DX: J90 Pleural effusion, not elsewhere classified (principal)
CPT/HCPCS: 88305; 32555; 71045; 82945; 83615; 83986; 84157; 87015; 87070; 87102; 87116; 87205; 87206; 88112; 89051

== ENCOUNTER → 2023-12-16 06:56 | Outpatient (REF) | payer MEDICARE, BC, SELFPAY ==
[2023-12-16 07:15] VITALS: BP 180/103; BP_SYST 60
[2023-12-16 07:51] VITALS: BP 182/98
[2023-12-16 08:30] LABS: Body Fluid pH 7.38
[2023-12-16 08:31] LABS: Body Fluid Mononuclear 98.3 %; Body Fluid Polymorphonuclear 1.7 %; Body Fluid WBC 889 /CUMM
[2023-12-16 08:32] LABS: Body Fluid Second Tech EM
[2023-12-16 08:41] LABS: Body Fluid Glucose 97 mg/dl; Body Fluid LDH 130 U/L; Body Fluid Protein 3.4 g/dl
== END ==
LOC: RADI 06:56
PROVIDERS: ATTENDING PHYSICIAN Internal Medicine Critical Care Medicine; FAMILY PHYSICIAN Family Medicine; OTHER PHYSICIAN Internal Medicine
DX: J90 Pleural effusion, not elsewhere classified (principal)
CPT/HCPCS: 88305; 32555; 71045; 82945; 83615; 83986; 84157; 87015; 87070; 87102; 87116; 87205; 87206; 88112; 89051

== ENCOUNTER → 2024-01-06 07:01 | Outpatient (REF) | payer MEDICARE, BC, SELFPAY ==
[2024-01-06 07:24] VITALS: BP_SYST 69
[2024-01-06 07:42] VITALS: BP 169/92
[2024-01-06 08:15] LABS: Body Fluid pH 7.38
[2024-01-06 08:36] LABS: Body Fluid Glucose 98 mg/dl; Body Fluid LDH 142 U/L; Body Fluid Protein 3.7 g/dl
[2024-01-06 09:21] LABS: Body Fluid Mononuclear 98.2 %; Body Fluid Polymorphonuclear 1.8 %; Body Fluid WBC 965 /CUMM
[2024-01-06 09:46] LABS: Body Fluid Second Tech HB
== END ==
LOC: RADI 07:01
PROVIDERS: ATTENDING PHYSICIAN Internal Medicine Critical Care Medicine; FAMILY PHYSICIAN Family Medicine; REFERRING PHYSICIAN Internal Medicine
DX: J90 Pleural effusion, not elsewhere classified (principal)
CPT/HCPCS: 88305; 32555; 71250; 82945; 83615; 83986; 84157; 87015; 87070; 87102; 87116; 87205; 87206; 88112; 89051

== ENCOUNTER → 2024-02-03 07:02 | Outpatient (REF) | payer MEDICARE, BC, SELFPAY ==
[2024-02-03 07:17] VITALS: BP 181/99; BP_SYST 77
== END ==
LOC: RADI 07:02
PROVIDERS: ATTENDING PHYSICIAN Internal Medicine Critical Care Medicine; FAMILY PHYSICIAN Family Medicine; REFERRING PHYSICIAN Internal Medicine
DX: J90 Pleural effusion, not elsewhere classified (principal); Z53.8 Procedure and treatment not carried out for other reasons
CPT/HCPCS: 76604

== ENCOUNTER → 2024-04-03 07:52 | Outpatient (REF) | payer MEDICARE, BC, SELFPAY | LOC: EMG 07:52 | PROVIDERS: ATTENDING PHYSICIAN Family Medicine | DX: R20.2 Paresthesia of skin (principal); R20.0 Anesthesia of skin | CPT/HCPCS: 95886; 95911 ==

== ENCOUNTER → 2024-07-23 07:50 | Outpatient (REF) | payer MEDICARE, BC, SELFPAY | LOC: RAD 07:50 | PROVIDERS: ATTENDING PHYSICIAN Internal Medicine Critical Care Medicine; FAMILY PHYSICIAN Family Medicine | DX: J90 Pleural effusion, not elsewhere classified (principal) | CPT/HCPCS: 71250 ==

== ENCOUNTER 2024-08-16 06:31 | Day surgery (SDC) | payer MEDICARE, BC, SELFPAY | END 2024-08-16 12:04 | disposition home or self-care (01) | LOC: GI 06:31 | PROVIDERS: ATTENDING PHYSICIAN Internal Medicine Gastroenterology; FAMILY PHYSICIAN Family Medicine | DX: K22.70 Barrett's esophagus without dysplasia (principal); R14.0 Abdominal distension (gaseous); K22.89 Other specified disease of esophagus; K44.9 Diaphragmatic hernia without obstruction or gangrene | CPT/HCPCS: 43239; 88305; 88342 ==

== ENCOUNTER → 2024-09-20 13:50 | Outpatient (REF) | payer MEDICARE, BC, SELFPAY | LOC: RAD 13:50 | PROVIDERS: ATTENDING PHYSICIAN Family Medicine | DX: M79.643 Pain in unspecified hand (principal) | CPT/HCPCS: 73130 ==